=== PATIENT | female | born 1955 | race Caucasian/White ===

== ENCOUNTER 2024-11-22 10:30 | Inpatient (IN) | payer OTHER ==
[~2024-11-22] VITALS: Ht 167.6 cm; Wt 68.8 kg
--- NOTE | 2024-11-22 10:44 | ECG ---
[facility] Test Date: 2024-11-22 Test Time: 10:36:25 Pat Name: TONI SMITH Department: ER Room: [address] [place] [address] Gender: F [employer] Lead: KG : 1955 Requested By: JAVIER BACA Order Number: [id number] Reading MD: Rakan Godwin Measurements Intervals [place] Rate: 129 P: -51 ID: [id number] QRS: -58 QRSD: 91 T: 5 QT: 335 QTc: 491 Interpretive Statements Sinus or ectopic atrial tachycardia Left anterior fascicular block Probable anterior infarct, age indeterminate Electronically Signed On 11-27-2024 15:14:17 PST by Rakan Godwin Please click the below link to view image of tracing.
[2024-11-22 10:45] VITALS: PULSE 130; RESP 30; O2SAT 96
[2024-11-22 11:00] LABS: Base Excess 0.5 mmol/L (-2.0-3.0)
[2024-11-22] MEDS: ALBUTEROL SULF 2.5 MG/0.5ML(0.5%) NEB SOLN NEB ONE ×2 (11:07→19:02)
[2024-11-22] MEDS: IPRATROPIUM BROM 0.5 MG/2.5ML INH SOL NEB ONE ×2 (11:07→19:02)
[2024-11-22] MEDS: methylPREDNISolone SOD SUCC 125 MG/2 ML VL IV ONE (11:29)
[2024-11-22] MEDS: MAGNESIUM SULFATE 1GM/100ML 100 ML IV ONE (11:33)
--- NOTE | 2024-11-22 11:36 | DVH ---
CHEST RADIOGRAPH Indication: sob Technique: Single frontal view of the chest was obtained COMPARISON: None FINDINGS: Lines and Tubes: None Lungs: Congestion. Pleura: No effusion. No pneumothorax. Cardiomediastinal contours: Unremarkable Bones: Unremarkable IMPRESSION: Congestion with possible underlying fibrotic changes.
--- NOTE | 2024-11-22 11:37 | ED.PDOC ---
SOB-HPI HPI Comments 68 year old female MEIR presents to the ED with chief complaint of SOB. EMS reports patient has been experiencing SOB and cough for the past few hours, noting that on scene the patient had an O2 saturation in the 70s. EMS relays patient was given a DuoNeb treatment on route and 8L of O2 via mask and her O2 saturation went up to 96%. Patient states she was recently diagnosed with pneumonia by her doctor 13 days ago and had been prescribed Z-Henrry. Patient denies any chest pain, dizziness, fever, chills, or headache. 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 MACHINE HAND History: No Pertinent SCREW MACHINE HAND History Family History Family History: Reviewed,noncontributory to illness Social History Smoker: Non-Smoker Alcohol: Denies ETOH Use Drugs: Denies Drug Use Lives In: Home Constitutional: denies: chills, diaphoresis, fatigue, fever, malaise, sweats, weakness, others EENTM: denies: blurred vision, double vision, ear bleeding, ear discharge, ear drainage, ear pain, ear ringing, eye pain, eye redness, hearing loss, mouth pain, mouth swelling, nasal discharge, nose bleeding, nose congestion, nose pain, photophobia, tearing, throat pain, throat swelling, voice changes, others Respiratory: reports: cough, shortness of breath; denies: hemoptysis, orthopnea, SOB at rest, SOB with excertion, stridor, wheezing, others Cardiovascular: denies: chest pain, dizzy spells, diaphoresis, Dyspnea on exertion, edema, irregular heart beat, left arm pain, lightheadedness, palpitations, PND, syncope, others Gastrointestinal: denies: abdomen distended, abdominal pain, blood streaked bowels, constipated, diarrhea, dysphagia, difficulty swallowing, hematemesis, melena, nausea, poor appetite, poor fluid intake, rectal bleeding, rectal pain, vomiting, others Genitourinary: denies: abnormal vagina bleeding, burning, dyspareunia, dysuria, flank pain, frequency, hematuria, incontinence, pain, , vagina discharge, urgency, others Neurological: denies: dizziness, fainting, headache, left sided numbness, left sided weakness, numbness, paresthesia, pre-existing deficit, right sided numbness, right sided weakness, seizure, speech problems, tingling, tremors, weakness, others Musculoskeletal: denies: back pain, gout, joint pain, joint swelling, muscle pain, muscle stiffness, neck pain, others Integumetry: denies: bruises, change in color, change in hair/nails, dryness, laceration, lesions, lumps, rash, wounds, others Allergic/Immunocompromised: denies: Difficulty Healing, Frequent Infections, Hives, Itching, others Hematologic/Lymphatic: denies: anemia, blood clots, easy bleeding, easy bruising, swollen glands, others Endocrine: denies: excessive hunger, excessive sweating, excessive thirst, excessive urination, flushing, intolerance to cold, intolerance to heat, unexplained weight gain, unexplained weight loss, others Psychiatric: denies: anxiety, bipolar disorder, depression, hopeless, panic disorder, schizophrenia, sleepless, suicidal, others All Other Systems: Reviewed and Negative Physical Exam General Appearance: Normal, Severe Distress HEENT: Normal ENT Inspection, PERRL/EOMI Neck: Full Range of Motion, Non-Tender, Normal, Normal Inspection Respiratory: Accessory Muscle Use, Chest Non-Tender, Respiratory Distress Cardiovascular: No Edema, No JVD, No Murmur, No Gallop, Normal Peripheral Pulses, Tachycardia Breast Exam: Deferred Gastrointestinal: No Organomegaly, Non Tender, No Pulsatile Mass, Normal Bowel Sounds, Soft Genitalia: Deferred Pelvic: Deferred Rectal: Deferred Extremities: No calf tenderness, Normal capillary refill, Normal inspection, Normal range of motion, Non-tender, No pedal edema Musculoskeletal : Apperance: Normal Neurologic: Alert, bobtail driver II-XII nml as Tested, No Motor Deficits, Normal Affect, Normal Mood, No Sensory Deficits Cerebellar Function: NOT DONE Reflexes: NOT DONE Skin: Dry, Normal Color, Warm Peripheral Pulses: 3+ Radial (R), 3+ Radial (L) Lymphatic: No Adenopathy Was a procedure done? Was a procedure done?: No Differential Dx Differential Diagnosis: Anxiety, Asthma, Bronchitis, Pneumonia, Respiratory Distress X-Ray, Labs, Meds, VS Vital Signs Date Time Temp Pulse Resp B/P (MAP) Pulse Ox O2 Delivery O2 Flow Rate FiO2 11/22/24 16:11 117 18 123/78 (93) 96 11/22/24 14:00 115 22 118/72 (87) 99 11/22/24 12:00 116 30 115/74 (88) 98 11/22/24 11:07 35 99 Nasal Cannula* 4 36 11/22/24 10:45 130 30 96 Simple Mask* 8 60 11/22/24 10:36 129 11/22/24 10:30 Simple Mask* 8 60 11/22/24 10:30 Simple Mask* 8 60 11/22/24 10:30 Simple Mask* 8 60 11/22/24 10:30 97.9 130 32 126/91 (103) 96 11/22/24 10:30 97.8 130 35 107/80 (89) 96 97.8 Lab Test 11/22/24 15:15 11/22/24 15:11 11/22/24 12:55 11/22/24 11:36 Range/Units Urine Color Light-yellow Yellow Urine Clarity Clear Clear Urine pH 5.5 5.0-9.0 Urine Specific [place] 1.010 1.001-1.035 Urine Protein Negative Negative Urine Ketones Negative Negative Urine Blood 1+ H Negative /uL Urine Nitrite Negative Negative Urine Bilirubin Negative Negative Urine Urobilinogen Normal Negative mg/dL Urine Leukocyte Esterase Negative Negative /uL Urine RBC 2 0 - 4 /hpf Urine WBC 5 0 - 5 /hpf Urine Squamous Epithelial Cells Few <5 /hpf Urine Bacteria Few H None Seen /hpf Urine Hyaline Casts Few 0 - 2 /lpf Urine Glucose Normal Normal mg/dL Troponin I High Sensitivity 32 38 *H 38 *H </=34 ng/L White Blood Count 15.2 H 4.4-10.8 10^3/uL Red Blood Count 4.45 4.0-5.20 10^6/uL Hemoglobin 13.6 12.2-16.2 g/dL Hematocrit 39.8 36.0-46.0 % Mean Corpuscular Volume 89.3 80.0-100.0 fL Mean Corpuscular Hemoglobin 30.6 28.0-32.0 pg Mean Corpuscular Hemoglobin Concent 34.3 32.0-36.0 g/dL Red Cell Distribution Width 14.2 11.8-14.3 % Platelet Count 420 140-450 10^3/uL Mean Platelet Volume 6.5 L 6.9-10.8 fL Neutrophils (%) (Auto) 84.3 H 37.0-80.0 % Lymphocytes (%) (Auto) 6.7 L 10.0-50.0 % Monocytes (%) (Auto) 7.3 0.0-12.0 % Eosinophils (%) (Auto) 1.2 0.0-7.0 % Basophils (%) (Auto) 0.5 0.0-2.0 % Neutrophils # (Auto) 12.8 H 1.6-8.6 10 ^3/uL Lymphocytes # (Auto) 1.0 0.4-5.4 10 ^3/uL Monocytes # (Auto) 1.1 0-1.3 10 ^3/uL Eosinophils # (Auto) 0.2 0-0.8 10 ^3/uL Basophils # (Auto) 0.1 0-0.2 10 ^3/uL Nucleated Red Blood Cells 0.1 % Sodium Level 129 L 136-145 mmol/L Potassium Level 3.6 3.5-5.1 mmol/L Chloride Level 94 L 98-107 mmol/L Carbon Dioxide Level 25 20-31 mmol/L Anion Gap 10 5-15 Blood Urea Nitrogen 26 H 9-23 mg/dL Creatinine 0.78 0.550-1.02 mg/dL Glomerular Filtration Rate Calc 82 >90 mL/min BUN/Creatinine Ratio 33.3 H 10.0-20.0 Serum Glucose 143 H 74-106 mg/dL Calcium Level 9.8 8.7-10.4 mg/dL B-Type Natriuretic Peptide 467.95 0-100 pg/mL Test 11/22/24 10:52 Range/Units Blood Gas Specimen Type Arterial Blood Gas Sample Site Left radial Blood Gas Patient Temperature 37.0 Arterial Blood Date Drawn [id number] Arterial Blood pH 7.492 H 7.350-7.450 Arterial Blood Partial Pressure CO2 30.5 L 32.0-45.0 mmHg Arterial Blood Partial Pressure O2 76.1 L 83.0-108.0 mmHg Arterial Blood HCO3 22.8 21.0-28.0 mmol/L Arterial Blood Oxygen Saturation 95.2 94.0-98.0 % Arterial Blood Base Excess 0.5 -2.0-3.0 mmol/L Arterial Blood Oxyhemoglobin 93.5 L 94.0-98.0 % Arterial Blood Carboxyhemoglobin 1.2 0.5-1.5 % Arterial Blood Methemoglobin 0.6 0.0-1.5 % Arthur Test Yes Blood Gas Total Hemoglobin 14.00 12.0-16.0 g/dL Blood Gas Liter Flow 8.00 Blood Gas Modality Mask - simple FiO2 % 60.0 Current Medications Medications (Trade) Dose Ordered Sig/Govind Route Start Time Stop Time Status Last Admin Methylprednisolone Sodium Succinate (Solu Medrol) 125 mg ONCE ONCE IV 11/22/24 11:00 11/22/24 11:01 DC 11/22/24 11:29 Magnesium Sulfate/ Dextrose 100 ml @ 100 mls/hr ONCE ONCE IV 11/22/24 11:00 11/22/24 11:59 DC 11/22/24 11:33 Albuterol (Ventolin Medneb) 5 mg ONCE ONCE NEB 11/22/24 11:00 11/22/24 11:01 DC 11/22/24 11:07 Ipratropium [place] (Atrovent Medneb) 0.5 mg ONCE ONCE NEB 11/22/24 11:00 11/22/24 11:01 DC 11/22/24 11:07 Enoxaparin Sodium (Lovenox) 80 mg ONCE ONCE SC 11/22/24 12:30 11/22/24 12:31 DC 11/22/24 12:35 Ceftriaxone Sodium 50 ml @ 100 mls/hr ONCE ONCE IV 11/22/24 12:45 11/22/24 13:14 DC 11/22/24 13:07 Azithromycin 250 ml @ 125 mls/hr ONCE ONCE IV 11/22/24 12:45 11/22/24 14:44 DC 11/22/24 13:08 Patient alert. Complaining of shortness a breath. Vitals stable. Answering all questions. Was given steroid. Was given breathing treatment. Was given magnesium. Placed on oxygen. WBC elevated pain Possible pneumonia. She has been having breathing difficulties for many weeks. Was given Rocephin. Was given azithromycin. Explained to the patient. Continue cardiac monitoring. Cardiac marker elevated. Was given Lovenox. BNP elevated. Was given Lasix. Chest x-ray reviewed does show pneumonitis. [place] approved inpatient admission [id number]. Time of 1ST Reevaluation: 12:29 Reevaluation 1ST: Unchanged Patient Education/Counseling: Diagnosis, Treatment Family Education/Counseling: No Family Present Additional Information I reviewed the following notes from patient's past medical encounters: None The following tests were ordered, and results were reviewed by me: EKG, Troponin, BMP, UA, BNP, CBC, CXR Additional Information was gathered from interviewing the following independent historians: EMS I reviewed and agreed with the following test results read by other providers: CXR I discussed treatment and results with medical personnel. Departure 1 Departure Time of Disposition: 12:32 Impression: Primary Impression: Acute respiratory failure Qualified Codes: J96.01 - Acute respiratory failure with hypoxia Additional Impressions: Pneumonitis CHF (congestive heart failure) Qualified Codes: I50.43 - Acute on chronic combined systolic (congestive) and diastolic (congestive) heart failure Demand ischemia Disposition: 09 ADMITTED INPATIENT Admit to: Med Surg Condition: Guarded Critical Care Note Critical Care Time?: Yes (90 min-critical care time only) Stability Stability form required: No Heart Score Heart Score: Heart Score Response (Comments) Value History Slightly Suspicious 0 EKG Normal 0 Age >65 2 Risk Factors >3 or Hx ASHD 2 Troponin 1-2 x's Normal limit 1 Total 5 I personally scribed for JAVIER BACA MD ([email or web address]) on 11/22/24 at 11:37. Electronically submitted by Ajit Alonso ([email or web address]). JAVIER BACA MD Nov 22, 2024 11:37
[2024-11-22 12:13] LABS: Basophils # (auto) 0.1 10 ^3/uL (0-0.2); Basophils % (auto) 0.5 % (0.0-2.0); Eosinophils # (auto) 0.2 10 ^3/uL (0-0.8); Eosinophils % (auto) 1.2 % (0.0-7.0); Hematocrit 39.8 % (36.0-46.0); Hemoglobin 13.6 g/dL (12.2-16.2); Lymphocytes % (auto) 6.7 % (10.0-50.0); Mean Corpuscular Hemoglobin 30.6 pg (28.0-32.0); Mean Corpuscular Hgb Conc. 34.3 g/dL (32.0-36.0); Mean Corpuscular Volume 89.3 fL (80.0-100.0); Monocytes # (auto) 1.1 10 ^3/uL (0-1.3); Monocytes % (auto) 7.3 % (0.0-12.0); Neutrophils # (auto) 12.8 10 ^3/uL (1.6-8.6); Neutrophils % (auto) 84.3 % (37.0-80.0); Nucleated Red Blood Cells % 0.1 %; Platelet Count (auto) 420 10^3/uL (140-450); Red Blood Cells 4.45 10^6/uL (4.0-5.20); Red Cell Distribution Width 14.2 % (11.8-14.3); White Blood Cell 15.2 10^3/uL (4.4-10.8)
[2024-11-22 12:32] LABS: Potassium 3.6 mmol/L (3.5-5.1)
[2024-11-22 12:33] LABS: Anion Gap 10 (5-15); Carbon Dioxide 25 mmol/L (20-31)
[2024-11-22] MEDS: ENOXAPARIN SOD 80 MG/0.8ML SYRINGE SC ONE (12:35)
[2024-11-22 12:43] LABS: Calcium 9.8 mg/dL (8.7-10.4)
[2024-11-22 12:47] LABS: BUN/Creatinine Ratio 33.3 (10.0-20.0)
[2024-11-22 12:49] LABS: Blood Urea Nitrogen 26 mg/dL (9-23); Chloride 94 mmol/L (98-107); Glucose 143 mg/dL (74-106); Sodium 129 mmol/L (136-145)
[2024-11-22] MEDS: cefTRIAXone 1GM/50ML D5W 50 ML IV ONE (13:07)
[2024-11-22] MEDS: AZITHROMYCIN 500MG/ 250ML 250 ML IV ONE (13:08)
[2024-11-22 16:24] LABS: Urine Bacteria FEW /hpf (None Seen); Urine Blood 1+ /uL (Negative); Urine Clarity Clear (Clear); Urine Color Light-Yellow (Yellow); Urine Hyaline Cast FEW /lpf (0 - 2); Urine Protein, UAD Negative (Negative); Urine Squamous Epithelial Cell FEW /hpf (<5); Urine Urobilinogen Normal (Negative); Urine WBC 5 /hpf (0 - 5); Urine pH 5.5 (5.0-9.0)
[2024-11-22] MEDS: FUROSEMIDE 40 MG/4 ML VIAL IV ONE (17:43)
[2024-11-22] MEDS: ALBUTEROL SULF 2.5 MG/0.5ML(0.5%) NEB SOLN ONE (19:01)
[2024-11-22] MEDS: IPRATROPIUM BROM 0.5 MG/2.5ML INH SOL ONE (19:02)
[2024-11-22] MEDS ORDERED: ONDANSETRON HCL 4 MG/2 ML VIAL IV PRN (19:15)
[2024-11-22 19:17] VITALS: O2SAT 94
[2024-11-22 19:50] VITALS: O2SAT 94
--- NOTE | 2024-11-22 20:23 | DVHHP2 ---
History of Present Illness Reason for Visit: Shortness of breath History of Present Illness 68-year-old female presents for evaluation of shortness for breath. Patient endorses a two day history of worsening shortness for breath with associated chest pressure and nonproductive cough. Patient reports recently being treated for pneumonia two weeks ago. Denies any fever or chills. No other acute complaints reported. Past Medical History Hypertension Past Surgical History Denies Family History Noncontributory Smoke: No ALCOHOL: none Drugs: None Lives: with Family Review of Systems Review of Systems Review of systems are currently negative otherwise addressed in HPI. Allergies: Coded Allergies: Codeine (Verified Allergy, Unknown, 11/22/24) Etodolac (Verified Allergy, Unknown, 11/22/24) Medications Current Medications Medications Dose Ordered Sig/Govind Route Start Time Stop Time Status Last Admin Dose Admin Albuterol 2.5 mg Q6HPRN PRN NEB 11/22/24 19:15 UNV Furosemide 40 mg DAILY PO 11/23/24 10:00 UNV Aspirin 81 mg DAILY PO 11/23/24 10:00 UNV Atorvastatin Calcium 10 mg HS PO 11/22/24 22:00 UNV Azithromycin 250 ml @ 125 mls/hr DAILY IV 11/23/24 10:00 UNV Temazepam 15 mg QHSP PRN PO 11/22/24 19:15 UNV Ondansetron HCl 4 mg Q4HP PRN IV 11/22/24 19:15 UNV Enoxaparin Sodium 40 mg DAILY SC 11/23/24 10:00 UNV Acetaminophen 650 mg Q6HP PRN PO 11/22/24 19:15 UNV Exam Vital Signs Vital Signs Date Time Temp Pulse Resp B/P (MAP) Pulse Ox O2 Delivery O2 Flow Rate FiO2 11/22/24 20:00 112 33 119/72 (88) 98 11/22/24 19:17 Nasal Cannula 4.0 11/22/24 19:17 36 11/22/24 18:00 97.9 97.9 Exam Gen: 68-year-old female in mild distress Skin: Warm, dry, normal color and texture, no rash. HEENT: Normocephalic atraumatic, mucous membranes moist and pink. Neck: Cervical and supraclavicular nodes normal without enlargement, trachea is midline, thyroid gland is normal without masses. Pulmonary: Clear to auscultation and percussion bilaterally. Cardiac: Regular rate and rhythm. No murmur Abdomen: Soft, nontender, nondistended, bowel sounds present all 4 quadrants, no guarding, no rigidity, no organomegaly. Extremities: No cyanosis, clubbing, no edema Neuro: Cranial nerves II through XII grossly intact, normal affect and speech, no focal motor deficits. Labs/Xrays ORDERING PHYSICIAN: JAVIER BACA MD PROCEDURE(s): CXRP - CHEST PORTABLE REASON: sob ORDER NUMBER(s): [id number], ACCESSION NUMBER(s): [id number] CHEST RADIOGRAPH Indication: sob Technique: Single frontal view of the chest was obtained COMPARISON: None FINDINGS: Lines and Tubes: None Lungs: Congestion. Pleura: No effusion. No pneumothorax. Cardiomediastinal contours: Unremarkable Bones: Unremarkable IMPRESSION: Congestion with possible underlying fibrotic changes. RING PHYSICIAN: MONICA MARSHALL MD PROCEDURE(s): CTACH - CT ANGIO CHEST CONTRAST REASON: RULE OUT PE ORDER NUMBER(s): [id number], ACCESSION NUMBER(s): [id number] PROCEDURE: CT CT ANGIO CHEST CONTRAST 11/23/2024 03:36 PM INDICATION: RULE OUT PE COMPARISON: Radiograph dated 11/22/2023 TECHNIQUE: Coverage: Thorax IV contrast: Administered Phases: Arterial Multiplanar 3-D Maximum Intensity Projection images (MIP) reconstructions were created by the technologist in the coronal and sagittal planes as part of the CT angiography protocol. Adverse events: None Medication laboratory values were reviewed to verify the patient meets criteria for contrast administration. All CT scans at this medical facility are performed using dose modulation techniques as appropriate to a performed exam including the following: Automated exposure control was utilized; adjustment of the MA and/or KV according to patient size; and use of iterative reconstruction technique. Radiation dose: CTDIvol 20, 19 mGy, DLP 627 mGy*cm. FINDINGS: Cardiovascular: No evidence of acute or chronic pulmonary emboli identified. Aorta is normal in caliber. The heart is mildly enlarged. Heavy coronary artery calcification noted. Lungs: Diffuse bilateral interstitial opacities and traction bronchiectasis noted suggesting chronic interstitial lung disease such as pulmonary fibrosis and honeycombing. A 4.2 x 2 cm mass is seen in the peripheral aspect of the superior segment of the right lower lobe. No pleural effusion. No pneumothorax. The airways are patent. Thyroid: Unremarkable Esophagus: Unremarkable. Lymphatics: Mediastinal or hilar lymphadenopathy noted measuring 2.4 x 2 cm Bones/soft tissues: No acute abnormality. Upper abdomen: No acute abnormality. Bilateral breast implants are seen. Other: None. IMPRESSION: 1. No pulmonary emboli. 2. Findings suggestive of pulmonary arterial hypertension. 3. Chronic interstitial lung disease such as pulmonary fibrosis/ usual interstitial pneumonia honeycombing. Traction bronchiectasis noted. Extensive bilateral ground-glass opacities could be related to chronic interstitial lung disease or reflect a superimposed edema, pneumonia or alveolar hemorrhage. Recommend clinical and biochemical correlation. 4. A 4.2 cm right lower lobe mass masses/focal consolidation noted. Follow-up is recommended to ensure regression of benignity. Biopsy May eventually be required. 5. Mediastinal and hilar lymphadenopathy. Labs Test 11/22/24 19:36 11/22/24 15:15 11/22/24 15:11 11/22/24 11:36 Range/Units Urine Color Light-yellow Yellow Urine Clarity Clear Clear Urine pH 5.5 5.0-9.0 Urine Specific [place] 1.010 1.001-1.035 Urine Protein Negative Negative Urine Ketones Negative Negative Urine Blood 1+ H Negative /uL Urine Nitrite Negative Negative Urine Bilirubin Negative Negative Urine Urobilinogen Normal Negative mg/dL Urine Leukocyte Esterase Negative Negative /uL Urine RBC 2 0 - 4 /hpf Urine WBC 5 0 - 5 /hpf Urine Squamous Epithelial Cells Few <5 /hpf Urine Bacteria Few H None Seen /hpf Urine Hyaline Casts Few 0 - 2 /lpf Urine Glucose Normal Normal mg/dL Troponin I High Sensitivity 32 </=34 ng/L White Blood Count 15.2 H 4.4-10.8 10^3/uL Red Blood Count 4.45 4.0-5.20 10^6/uL Hemoglobin 13.6 12.2-16.2 g/dL Hematocrit 39.8 36.0-46.0 % Mean Corpuscular Volume 89.3 80.0-100.0 fL Mean Corpuscular Hemoglobin 30.6 28.0-32.0 pg Mean Corpuscular Hemoglobin Concent 34.3 32.0-36.0 g/dL Red Cell Distribution Width 14.2 11.8-14.3 % Platelet Count 420 140-450 10^3/uL Mean Platelet Volume 6.5 L 6.9-10.8 fL Neutrophils (%) (Auto) 84.3 H 37.0-80.0 % Lymphocytes (%) (Auto) 6.7 L 10.0-50.0 % Monocytes (%) (Auto) 7.3 0.0-12.0 % Eosinophils (%) (Auto) 1.2 0.0-7.0 % Basophils (%) (Auto) 0.5 0.0-2.0 % Neutrophils # (Auto) 12.8 H 1.6-8.6 10 ^3/uL Lymphocytes # (Auto) 1.0 0.4-5.4 10 ^3/uL Monocytes # (Auto) 1.1 0-1.3 10 ^3/uL Eosinophils # (Auto) 0.2 0-0.8 10 ^3/uL Basophils # (Auto) 0.1 0-0.2 10 ^3/uL Nucleated Red Blood Cells 0.1 % Sodium Level 129 L 136-145 mmol/L Potassium Level 3.6 3.5-5.1 mmol/L Chloride Level 94 L 98-107 mmol/L Carbon Dioxide Level 25 20-31 mmol/L Anion Gap 10 5-15 Blood Urea Nitrogen 26 H 9-23 mg/dL Creatinine 0.78 0.550-1.02 mg/dL Glomerular Filtration Rate Calc 82 >90 mL/min BUN/Creatinine Ratio 33.3 H 10.0-20.0 Serum Glucose 143 H 74-106 mg/dL Calcium Level 9.8 8.7-10.4 mg/dL B-Type Natriuretic Peptide 467.95 0-100 pg/mL Test 11/22/24 10:52 Range/Units Blood Gas Specimen Type Arterial Blood Gas Sample Site Left radial Blood Gas Patient Temperature 37.0 Arterial Blood Date Drawn [id number] Arterial Blood pH 7.492 H 7.350-7.450 Arterial Blood Partial Pressure CO2 30.5 L 32.0-45.0 mmHg Arterial Blood Partial Pressure O2 76.1 L 83.0-108.0 mmHg Arterial Blood HCO3 22.8 21.0-28.0 mmol/L Arterial Blood Oxygen Saturation 95.2 94.0-98.0 % Arterial Blood Base Excess 0.5 -2.0-3.0 mmol/L Arterial Blood Oxyhemoglobin 93.5 L 94.0-98.0 % Arterial Blood Carboxyhemoglobin 1.2 0.5-1.5 % Arterial Blood Methemoglobin 0.6 0.0-1.5 % Arthur Test Yes Blood Gas Total Hemoglobin 14.00 12.0-16.0 g/dL Blood Gas Liter Flow 8.00 Blood Gas Modality Mask - simple FiO2 % 60.0 Assessment/Plan Assessment/Plan Assessment Acute hypoxic respiratory failure Questionable pneumonia Possible heart failure Elevated troponin Admit the patient to Med surge to the hospitalist Audiogram pending Azithromycin Med nebs Lasix D-dimer pending Continue treatment per orders. Plan discussed with: Patient My Orders Orders - MONICA FRANCE Procedure Category Date Status Time Albuterol Medneb PHA 11/22/24 Logged (Ventolin Medneb) 19:15 Furosemide Tablet PHA 11/23/24 Logged (Lasix Tablet) 10:00 Azithromycin 500mg/ PHA 11/23/24 Logged 250ml (Zithromax 50 10:00 D-Dimer LAB 11/22/24 In Process 19:11 Basic Metabolic Panel LAB 11/23/24 Verified 04:00 Admit ADMIT 11/22/24 Transmitted 19:11 Temazepam (Restoril) PHA 11/22/24 Logged 19:15 Ondansetron Hcl PHA 11/22/24 Logged (Zofran) 19:15 Enoxaparin Sodium PHA 11/23/24 Logged (Lovenox) 10:00 Complete Blood Count LAB 11/23/24 Verified 04:00 Cardiac DIET 11/23/24 Transmitted Diet-2gna,Lofat,Lochol Breakfast Echo 2d Mode Cardiac US 11/22/24 Logged DOP 19:11 Condition: Stable SHARDA 11/22/24 In Process 19:11 Acetaminophen Tablet PHA 11/22/24 Logged (Tylenol Tablet) 19:15 Bedrest With Bathroom SHARDA 11/22/24 In Process Privileg 19:11 Aspirin Tablet PHA 11/23/24 Logged 10:00 Atorvastatin (Lipitor) PHA 11/22/24 Logged 22:00 Date of Service: Nov 22, 2024 Billing Provider: MONICA FRANCE Common Visit Codes: [id number] INP/OBS CARE (HIGH) MONICA FRANCE Nov 22, 2024 20:23
[2024-11-22 20:24] VITALS: BP 119/72; PULSE 112; RESP 25; TEMP 97.9; O2SAT 94
[2024-11-22] MEDS: ATORVASTATIN 20 MG TAB PO SCH (22:24)
[2024-11-22] MEDS: ACETAMINOPHEN 325 MG TAB PO PRN (22:24)
[2024-11-22] MEDS: TEMAZEPAM 15 MG CAP PO PRN (22:24)
[2024-11-23] VITALS (10 sets, daily range): BP systolic 118–136; BP diastolic 68–81; PULSE 77–114; RESP 16–18; TEMP 97.5–98.1; O2SAT 90–99
[2024-11-23] MEDS: ASPirin 81 mg TAB PO SCH (10:07)
[2024-11-23] MEDS: FUROSEMIDE 40 MG TAB PO SCH (10:07)
[2024-11-23] MEDS: AZITHROMYCIN 500MG/ 250ML 250 ML IV SCH (10:08)
[2024-11-23] MEDS: ENOXAPARIN SOD 40 MG/0.4 ML SYRINGE SC SCH (10:08)
--- NOTE | 2024-11-23 13:26 | DVHSR ---
APPROVED REPORT EXAM: Two-dimensional and M-mode echocardiogram with Doppler and color Doppler. Blood Pressure: 129/75 mmHg INDICATION EF RISK FACTORS Height: 5'6", Weight: 158 DIMENSIONS LVDd4.3 (3.8-5.7cm)LA (2D)3.0 (1.9-4.0cm)Aortic Root3.3 (2.0-3.7cm) LVDs2.9 (2.5-4.0cm)LA (MM) (1.9-4.0cm)Aortic Cusp Exc1.5 (1.5-2.0cm) EF (%) 60.0 (55-70%)Rt. Atrium4.1 (1.9-4.0cm)Asc. Aorta cm IVSd1.1 (0.7-1.1cm)RV (D)4.1 (1.8-2.4cm) PWd0.7 (0.7-1.1cm) Mitral Valve MitralMitral Stenosis E/A ratio0.02D MVAcm2 Aortic Valve Aortic ValveAortic Stenosis V11.02m/Xochilt Mean GR.8mmHg V21.78m/Xochilt Peak GR.13mmHg LVOT Diameter2.3 (1.8-2.4cm)Doppler AVA2.38cm2 Tricuspid Valve TR Velocity3.15m/s [id number] LEFT VENTRICLE The left ventricle is of normal size. Wall thickness is normal. Ejection fraction is normal and is estimated at 60%. There is no regional wall motion abnormalities. Diastolic function is indetermina te. RIGHT VENTRICLE Mildly dilated in size. Systolic function is normal. ATRIA Normal in size. Mildly dilated. Normal in structure. MITRAL VALVE Normal structure and function. No significant mitral regurgitation. PULMONIC VALVE Likely normal. TRICUSPID VALVE Normal structure and function. There is mild tricuspid regurgitation. PA systolic pressure is estim ated at 48 mm Hg. AORTIC VALVE Normal structure and function. GREAT VESSELS The aortic root is of normal size. PERICARDIAL EFFUSION No significant pericardial effusion. IVC is of normal size and collapses normally with inspiration. Other Information Quality : Technically LimitedRhythm : Technically limited study due to body habitus. Conclusion Normal left ventricular size and systolic function. Ejection fraction is estimated at 60%. Mildly dilated right ventricle with preserved systolic function. Mildly dilated left atrial chamber size. No hemodynamically significant valvular disease. PA systolic pressure is estimated at 48 mm Hg. No significant pericardial effusion.
[2024-11-23 13:48] LABS: Potassium 3.5 mmol/L (3.5-5.1)
[2024-11-23 13:49] LABS: Anion Gap 5 (5-15); Calcium 9.4 mg/dL (8.7-10.4); Carbon Dioxide 31 mmol/L (20-31); Chloride 94 mmol/L (98-107); Sodium 130 mmol/L (136-145)
[2024-11-23 13:51] LABS: Basophils # (auto) 0 10 ^3/uL (0-0.2); Basophils % (auto) 0.2 % (0.0-2.0); Eosinophils # (auto) 0.3 10 ^3/uL (0-0.8); Eosinophils % (auto) 1.9 % (0.0-7.0); Hematocrit 39.8 % (36.0-46.0); Hemoglobin 12.7 g/dL (12.2-16.2); Lymphocytes # (auto) 1.5 10 ^3/uL (0.4-5.4); Lymphocytes % (auto) 10.6 % (10.0-50.0); Mean Corpuscular Hemoglobin 30.5 pg (28.0-32.0); Mean Corpuscular Hgb Conc. 32.1 g/dL (32.0-36.0); Mean Corpuscular Volume 95.1 fL (80.0-100.0); Monocytes # (auto) 1.2 10 ^3/uL (0-1.3); Monocytes % (auto) 8.6 % (0.0-12.0); Neutrophils % (auto) 78.7 % (37.0-80.0); Platelet Count (auto) 328 10^3/uL (140-450); Red Blood Cells 4.18 10^6/uL (4.0-5.20); Red Cell Distribution Width 14.9 % (11.8-14.3)
[2024-11-23 13:54] LABS: BUN/Creatinine Ratio 29.6 (10.0-20.0); Blood Urea Nitrogen 21 mg/dL (9-23)
[2024-11-23 14:00] LABS: Glucose 120 mg/dL (74-106)
--- NOTE | 2024-11-23 14:08 | DVHPN2 ---
Progress Note Date Seen: Nov 23, 2024 Medical Necessity Reason Pt with a Central, PICC or Fol: No Subjective Patient reports: No new complaints Review of Systems: HEENT:Normal, CVS:Normal, RESPIRATORY:Normal, GI:Normal, :Normal, MSK:Normal, NEURO:Normal Objective vital signs Vital Sign Date Time Temp Pulse Resp B/P (MAP) Pulse Ox O2 Delivery O2 Flow Rate FiO2 11/23/24 12:54 97.9 101 16 136/80 (98) 91 97.9 11/23/24 10:20 Nasal Cannula* 3 32 Total Intake and Output 11/22/24 11/22/24 11/23/24 15:00 23:00 07:00 Intake Total 275 ml 125 ml 0 ml Output Total 700 ml Balance 275 ml 125 ml -700 ml medications Current Medications Medications Dose Ordered Sig/Govind Route Start Time Stop Time Status Last Admin Dose Admin Albuterol 2.5 mg Q6HPRN PRN NEB 11/22/24 19:15 Furosemide 40 mg DAILY PO 11/23/24 10:00 11/23/24 10:07 40 MG Aspirin 81 mg DAILY PO 11/23/24 10:00 11/23/24 10:07 81 MG Atorvastatin Calcium 10 mg HS PO 11/22/24 22:00 11/22/24 22:24 10 MG Azithromycin 250 ml @ 125 mls/hr DAILY IV 11/23/24 10:00 11/23/24 10:08 125 MLS/HR Temazepam 15 mg QHSP PRN PO 11/22/24 19:15 11/22/24 22:24 15 MG Ondansetron HCl 4 mg Q4HP PRN IV 11/22/24 19:15 Enoxaparin Sodium 40 mg DAILY SC 11/23/24 10:00 11/23/24 10:08 40 MG Acetaminophen 650 mg Q6HP PRN PO 11/22/24 19:15 11/23/24 10:08 650 MG Examination: GENERAL:Normal, HEENT:Normal, NECK:Normal, LUNGS:Normal, LUNGS:Abnormal (on oxygen, rales), CVS:Normal, ABDOMEN:Normal, MSK:Normal, SKIN:Normal, NEURO:Normal, :Normal laboratory and microbiology Laboratory Tests 11/23/24 13:16 Test 11/23/24 13:16 Range/Units Serum Glucose 120 H 74-106 mg/dL Problem List/Assessment/Plan Problem List/Assessment/Plan #1 acute resp failure: cont oxygen #2 acute systolic/diastolic heart failure: lasix iv, echo #3 rule out PE: ct angio #4 hyponatremia: lasix iv advance care planning- full code-time spent 19 mins Plan discussed with: Patient My Orders My Orders Orders - MONICA MARSHALL MD Procedure Category Date Status Time Echo 2d Mode Cardiac US 11/23/24 Verified DOP 14:[address] 11/23/24 Verified Contrast 14:03 Furosemide Injection PHA 11/23/24 Verified (Lasix Injection) 14:15 Furosemide Injection PHA 11/24/24 Verified (Lasix Injection) 10:00 Complete Blood Count LAB 11/24/24 Verified 06:00 Comprehensive LAB 11/24/24 Verified Metabolic Panel 06:00 Chest Portable XY 11/24/24 Verified 06:00 Date of Service: Nov 23, 2024 Billing Provider: MONICA MARSHALL MD Common Visit Codes: [id number] INP/OBS CARE(HIGH) Secondary Visit Codes: [id number] CARE PLAN 30 MINUTES MONICA MARSHALL MD Nov 23, 2024 14:08
[2024-11-23] MEDS: FUROSEMIDE 20 MG/2 ML VIAL IV ONE (16:42)
--- NOTE | 2024-11-23 17:43 | DVH ---
PROCEDURE: CT CT ANGIO CHEST CONTRAST 11/23/2024 03:36 PM INDICATION: RULE OUT PE COMPARISON: Radiograph dated 11/22/2023 TECHNIQUE: Coverage: Thorax IV contrast: Administered Phases: Arterial Multiplanar 3-D Maximum Intensity Projection images (MIP) reconstructions were created by the technharvinder manuel in the coronal and sagittal planes as part of the CT angiography protocol. Adverse events: None Medication laboratory values were reviewed to verify the patient meets criteria for contrast administ ration. All CT scans at this medical facility are performed using dose modulation techniques as appropriate t o a performed exam including the following: Automated exposure control was utilized; adjustment of th e MA and/or KV according to patient size; and use of iterative reconstruction technique. Radiation dose: CTDIvol 20, 19 mGy, DLP 627 mGy*cm. FINDINGS: Cardiovascular: No evidence of acute or chronic pulmonary emboli identified. Aorta is normal in calib er. The heart is mildly enlarged. Heavy coronary artery calcification noted. Lungs: Diffuse bilateral interstitial opacities and traction bronchiectasis noted suggesting chronic interstitial lung disease such as pulmonary fibrosis and honeycombing. A 4.2 x 2 cm mass is seen in t he peripheral aspect of the superior segment of the right lower lobe. No pleural effusion. No pneumot horax. The airways are patent. Thyroid: Unremarkable Esophagus: Unremarkable. Lymphatics: Mediastinal or hilar lymphadenopathy noted measuring 2.4 x 2 cm Bones/soft tissues: No acute abnormality. Upper abdomen: No acute abnormality. Bilateral breast implants are seen. Other: None. IMPRESSION: 1. No pulmonary emboli. 2. Findings suggestive of pulmonary arterial hypertension. 3. Chronic interstitial lung disease such as pulmonary fibrosis/ usual interstitial pneumonia honeyco mbing. Traction bronchiectasis noted. Extensive bilateral ground-glass opacities could be related t o chronic interstitial lung disease or reflect a superimposed edema, pneumonia or alveolar hemorrhage . Recommend clinical and biochemical correlation. 4. A 4.2 cm right lower lobe mass masses/focal consolidation noted. Follow-up is recommended to ensur e regression of benignity. Biopsy May eventually be required. 5. Mediastinal and hilar lymphadenopathy.
[2024-11-24] VITALS (14 sets, daily range): BP systolic 90–147; BP diastolic 67–83; PULSE 77–116; RESP 16–20; TEMP 97.6–98; O2SAT 91–99
[2024-11-24] MEDS: ALBUTEROL SULF 2.5 MG/0.5ML(0.5%) NEB SOLN NEB PRN (07:44)
[2024-11-24 08:09] LABS: Basophils # (auto) 0 10 ^3/uL (0-0.2); Basophils % (auto) 0.3 % (0.0-2.0); Eosinophils # (auto) 0.7 10 ^3/uL (0-0.8); Eosinophils % (auto) 5.9 % (0.0-7.0); Hematocrit 38.1 % (36.0-46.0); Lymphocytes # (auto) 1.2 10 ^3/uL (0.4-5.4); Lymphocytes % (auto) 10.3 % (10.0-50.0); Mean Corpuscular Hemoglobin 30.8 pg (28.0-32.0); Mean Corpuscular Hgb Conc. 34.2 g/dL (32.0-36.0); Monocytes # (auto) 0.9 10 ^3/uL (0-1.3); Monocytes % (auto) 7.6 % (0.0-12.0); Neutrophils % (auto) 75.9 % (37.0-80.0); Platelet Count (auto) 340 10^3/uL (140-450); Red Blood Cells 4.24 10^6/uL (4.0-5.20); Red Cell Distribution Width 14.5 % (11.8-14.3); White Blood Cell 11.9 10^3/uL (4.4-10.8)
[2024-11-24 08:32] LABS: Alanine Aminotransferase 19 U/L (7-40); Albumin 3.7 g/dL (3.2-4.8); Alkaline Phosphatase 78 U/L (46-116); Anion Gap 8 (5-15); Aspartate Aminotransferase 29 U/L (13-40); BUN/Creatinine Ratio 25.9 (10.0-20.0); Bilirubin, Total 0.5 mg/dL (0.2-1.0); Blood Urea Nitrogen 15 mg/dL (9-23); Calcium 9.4 mg/dL (8.7-10.4); Glucose 95 mg/dL (74-106); Potassium 3.6 mmol/L (3.5-5.1); Total Protein 6.8 g/dL (5.7-8.2)
[2024-11-24 08:33] LABS: Carbon Dioxide 31 mmol/L (20-31); Chloride 94 mmol/L (98-107); Sodium 133 mmol/L (136-145)
--- NOTE | 2024-11-24 09:06 | DVH ---
CHEST RADIOGRAPH Indication: CHF Technique: Single frontal view of the chest was obtained Comparison: XY CHEST PORTABLE on DOS: 11/22/24, XY CHEST PORTABLE on DOS: 11/22/24 FINDINGS: Lines and Tubes: None Lungs: Congestion. Pleura: No effusion. No pneumothorax. Cardiomediastinal contours: Unremarkable Bones: Unremarkable IMPRESSION: Congestion with possible underlying fibrotic changes.
[2024-11-24] MEDS: FUROSEMIDE 20 MG/2 ML VIAL IV SCH (10:14)
--- NOTE | 2024-11-24 11:17 | DVHDS2 ---
Discharge Summary Date of Admission Nov 22, 2024 at 19:11 Date of Discharge: Nov 24, 2024 Labs/Diagnostic Data: Laboratory Results Test 11/24/24 07:00 11/22/24 19:36 11/22/24 15:15 11/22/24 15:11 White Blood Count 11.9 10^3/uL (4.4-10.8) Red Blood Count 4.24 10^6/uL (4.0-5.20) Hemoglobin 13.0 g/dL (12.2-16.2) Hematocrit 38.1 % (36.0-46.0) Mean Corpuscular Volume 90.0 fL (80.0-100.0) Mean Corpuscular Hemoglobin 30.8 pg (28.0-32.0) Mean Corpuscular Hemoglobin Concent 34.2 g/dL (32.0-36.0) Red Cell Distribution Width 14.5 % (11.8-14.3) Platelet Count 340 10^3/uL (140-450) Mean Platelet Volume 6.6 fL (6.9-10.8) Neutrophils (%) (Auto) 75.9 % (37.0-80.0) Lymphocytes (%) (Auto) 10.3 % (10.0-50.0) Monocytes (%) (Auto) 7.6 % (0.0-12.0) Eosinophils (%) (Auto) 5.9 % (0.0-7.0) Basophils (%) (Auto) 0.3 % (0.0-2.0) Neutrophils # (Auto) 9.0 10 ^3/uL (1.6-8.6) Lymphocytes # (Auto) 1.2 10 ^3/uL (0.4-5.4) Monocytes # (Auto) 0.9 10 ^3/uL (0-1.3) Eosinophils # (Auto) 0.7 10 ^3/uL (0-0.8) Basophils # (Auto) 0 10 ^3/uL (0-0.2) Nucleated Red Blood Cells 0.0 % Sodium Level 133 mmol/L (136-145) Potassium Level 3.6 mmol/L (3.5-5.1) Chloride Level 94 mmol/L (98-107) Carbon Dioxide Level 31 mmol/L (20-31) Anion Gap 8 (5-15) Blood Urea Nitrogen 15 mg/dL (9-23) Creatinine 0.58 mg/dL (0.550-1.02) Glomerular Filtration Rate Calc 98 mL/min (>90) BUN/Creatinine Ratio 25.9 (10.0-20.0) Serum Glucose 95 mg/dL (74-106) Calcium Level 9.4 mg/dL (8.7-10.4) Total Bilirubin 0.5 mg/dL (0.2-1.0) Aspartate Amino Transferase (AST) 29 U/L (13-40) Alanine Aminotransferase (ALT) 19 U/L (7-40) Alkaline Phosphatase 78 U/L (46-116) Total Protein 6.8 g/dL (5.7-8.2) Albumin 3.7 g/dL (3.2-4.8) D-Dimer, Quantitative 2.60 mg/L FEU (0.0-0.49) Urine Color Light-yellow (Yellow) Urine Clarity Clear (Clear) Urine pH 5.5 (5.0-9.0) Urine Specific [place] 1.010 (1.001-1.035) Urine Protein Negative (Negative) Urine Ketones Negative (Negative) Urine Blood 1+ /uL (Negative) Urine Nitrite Negative (Negative) Urine Bilirubin Negative (Negative) Urine Urobilinogen Normal mg/dL (Negative) Urine Leukocyte Esterase Negative /uL (Negative) Urine RBC 2 /hpf (0 - 4) Urine WBC 5 /hpf (0 - 5) Urine Squamous Epithelial Cells Few /hpf (<5) Urine Bacteria Few /hpf (None Seen) Urine Hyaline Casts Few /lpf (0 - 2) Urine Glucose Normal mg/dL (Normal) Troponin I High Sensitivity 32 ng/L (</=34) Test 11/22/24 11:36 11/22/24 10:52 B-Type Natriuretic Peptide 467.95 pg/mL (0-100) Blood Gas Specimen Type Arterial Blood Gas Sample Site Left radial Blood Gas Patient Temperature 37.0 Arterial Blood Date Drawn [id number] Arterial Blood pH 7.492 (7.350-7.450) Arterial Blood Partial Pressure CO2 30.5 mmHg (32.0-45.0) Arterial Blood Partial Pressure O2 76.1 mmHg (83.0-108.0) Arterial Blood HCO3 22.8 mmol/L (21.0-28.0) Arterial Blood Oxygen Saturation 95.2 % (94.0-98.0) Arterial Blood Base Excess 0.5 mmol/L (-2.0-3.0) Arterial Blood Oxyhemoglobin 93.5 % (94.0-98.0) Arterial Blood Carboxyhemoglobin 1.2 % (0.5-1.5) Arterial Blood Methemoglobin 0.6 % (0.0-1.5) Arthur Test Yes Blood Gas Total Hemoglobin 14.00 g/dL (12.0-16.0) Blood Gas Liter Flow 8.00 Blood Gas Modality Mask - simple FiO2 % 60.0 Other Laboratory Tests 11/24/24 07:00 Brief Hx & Hospital Course: see dictated note Condition at Discharge: Fair Final Diagnosis/Problems List resp failure Discharge Disposition: Acute Care Facility Discharge Instruct/Medications Diet: Cardiac 2g Na,low cholest Activity: No Restrictions, As Tolerated Follow Up/Referral: darell coronado Medications: per jan Discharge Statement: "Patient was advised to return to the ER or call 911 if any headaches, dizziness, shortness of breath, chest pain, abdominal pain, bleeding, fevers, or worsening of medical condition. Patient was counseled about treatment plan, medications, possible side effects, patientverbalized understanding. All questions were answered to the best of my ability. This discharge took greater then 30 minutes in planning, reviewing documentation, counseling the patient, and discussing with other team members." ASSESSMENT ASSESSMENT Assessment resp failure Date of Service: Nov 24, 2024 Billing Provider: MONICA MARSHALL MD Common Visit Codes: 78782-VCF/OBS DISCH DAY >30min MONICA MARSHALL MD Nov 24, 2024 11:17
--- NOTE | 2024-11-24 11:53 | DVHDS ---
DATE OF DISCHARGE: 11/24/2024 TRANSFER SUMMARY HISTORY OF PRESENT ILLNESS: The patient is a 68-year-old lady who was admitted with increasing shortness of breath and cough and has history of hypertension and previous history of ARDS. HOSPITAL COURSE: The patient had a troponin level mildly elevated at 38. BNP was elevated at 467. She was hyponatremic. The patient had a D-dimer that was elevated. The patient had a CT angiography of the chest that showed no pulmonary emboli, but showed evidence of pulmonary arterial hypertension with chronic interstitial lung disease and pulmonary fibrosis along with possible superimposed edema. The patient also had a 4.2 cm right lower lobe mass/focal consolidation with mediastinal and hilar lymphadenopathy. The patient had echocardiogram done that showed ejection fraction of 60% with evidence of pulmonary arterial hypertension. The patient will now be transferred to [facility] for further management. I have discussed this plan in detail with the patient's daughter, February. FINAL DIAGNOSES: Therefore, * Acute respiratory failure. * Interstitial fibrosis/interstitial lung disease, extensive. * Right lower lung mass/focal consolidation, questionable malignancy. * Likely acute diastolic heart failure. * Questionable pneumonia, gram-positive, gram-negative. * Hyponatremia. * History of hypertension. * [id number] myocardial infarction, likely type 2. * Pulmonary hypertension, likely secondary. Time spent in discharge planning and review of plan with the patient's family, nursing and paperwork was 41 minutes. MD SARITA Gómez/HEBERT TID: [id number] RECEIPT: [id number]
[2024-11-24] MEDS: cefTRIAXone 1GM/50ML D5W 50 ML IV ONE (18:13)
[2024-11-25] VITALS (17 sets, daily range): BP systolic 96–126; BP diastolic 57–77; PULSE 86–115; RESP 18–22; TEMP 97.7–98.1; O2SAT 90–98
[2024-11-25] MEDS: IPRATROPIUM BROM 0.5 MG/2.5ML INH SOL NEB SCH (01:19)
[2024-11-25 07:53] LABS: Anion Gap 8 (5-15); Calcium 9.1 mg/dL (8.7-10.4); Carbon Dioxide 30 mmol/L (20-31)
[2024-11-25 08:00] LABS: BUN/Creatinine Ratio 16.7 (10.0-20.0); Blood Urea Nitrogen 8 mg/dL (9-23); Chloride 93 mmol/L (98-107); Glucose 120 mg/dL (74-106); Potassium 3.3 mmol/L (3.5-5.1); Sodium 131 mmol/L (136-145)
[2024-11-25] MEDS: cefTRIAXone 1GM/50ML D5W 50 ML IV SCH (09:05)
[2024-11-25] MEDS: ALPRAZolam 0.5 MG TAB PO PRN (14:07)
[2024-11-26] VITALS (16 sets, daily range): BP systolic 91–144; BP diastolic 46–84; PULSE 92–122; RESP 18–26; TEMP 97.8–98.7; O2SAT 85–99
[2024-11-26] MEDS: ALPRAZolam 0.5 MG TAB PO PRN (01:05)
[2024-11-26] MEDS ORDERED: POTASSIUM CHL 20MEQ/100ML 100 ML IV SCH (13:15)
[2024-11-26] MEDS: POTASSIUM CHLORIDE 40 MEQ, LIDOCAINE 1% (LOCAL ANESTH.) 4 ML in SODIUM CHL 0.9% 250 ML IV ONE (16:27)
--- NOTE | 2024-11-26 20:37 | DVHPN2 ---
Objective Vitals Vital Signs Date Time Temp Pulse Resp B/P (MAP) Pulse Ox O2 Delivery O2 Flow Rate FiO2 11/26/24 18:39 102 20 92 11/26/24 18:29 Oxymizer 10 N/A 11/26/24 17:00 98.2 99/62 (74) 98.2 Intake/Output Intake and Output 11/26/24 07:00 Intake Total 1005 ml Output Total 600 ml Balance 405 ml Intake Oral 705 ml IV Total 300 ml Output Urine Total 600 ml Medications Current Medications Medications Dose Ordered Sig/Govind Route Start Time Stop Time Status Last Admin Dose Admin Albuterol 2.5 mg Q6HPRN PRN NEB 11/22/24 19:15 11/25/24 19:34 2.5 MG Aspirin 81 mg DAILY PO 11/23/24 10:00 11/26/24 09:43 81 MG Atorvastatin Calcium 10 mg HS PO 11/22/24 22:00 11/25/24 21:09 10 MG Azithromycin 250 ml @ 125 mls/hr DAILY IV 11/23/24 10:00 11/26/24 11:06 125 MLS/HR Temazepam 15 mg QHSP PRN PO 11/22/24 19:15 11/25/24 21:09 15 MG Ondansetron HCl 4 mg Q4HP PRN IV 11/22/24 19:15 Enoxaparin Sodium 40 mg DAILY SC 11/23/24 10:00 11/26/24 09:43 40 MG Acetaminophen 650 mg Q6HP PRN PO 11/22/24 19:15 11/26/24 16:15 650 MG Furosemide 20 mg DAILY IV 11/24/24 10:00 11/26/24 09:44 20 MG Ceftriaxone Sodium 50 ml @ 100 mls/hr DAILY@09 IV 11/25/24 09:00 11/26/24 09:44 100 MLS/HR Ipratropium [place] 0.5 mg Q6HWA NEB 11/25/24 01:00 11/26/24 18:28 0.5 MG Alprazolam 0.5 mg Q8HPRN PRN PO 11/26/24 01:00 11/26/24 01:05 0.5 MG Laboratory Results Laboratory Tests 11/24/24 07:00 11/25/24 06:15 Urinalysis Test 11/22/24 15:15 Urine Color Light-yellow (Yellow) Urine Clarity Clear (Clear) Urine pH 5.5 (5.0-9.0) Urine Specific [place] 1.010 (1.001-1.035) Urine Protein Negative (Negative) Urine Ketones Negative (Negative) Urine Blood 1+ /uL (Negative) H Urine Nitrite Negative (Negative) Urine Bilirubin Negative (Negative) Urine Urobilinogen Normal mg/dL (Negative) Urine Leukocyte Esterase Negative /uL (Negative) Urine RBC 2 /hpf (0 - 4) Urine WBC 5 /hpf (0 - 5) Urine Squamous Epithelial Cells Few /hpf (<5) Urine Bacteria Few /hpf (None Seen) H Urine Hyaline Casts Few /lpf (0 - 2) Urine Glucose Normal mg/dL (Normal) Assessment/Plan My Orders Orders - BENJAMIN MARSHALL DO Procedure Category Date Status Time Comprehensive LAB 11/27/24 Verified Metabolic Panel 05:00 Pt Request For Service PT 11/26/24 Logged 15:23 Date of Service: Nov 25, 2024 BENJAMIN MARSHALL DO Nov 26, 2024 20:37
--- NOTE | 2024-11-26 22:04 | DVHINCON2 ---
Date of service: Nov 26, 2024 Referring Physician Ronaldo Patton DO Reason for Consultation Acute hypoxic respiratory failure, lung mass, chronic interstitial lung disease History of Present Illness A 68-year-old woman with past medical history of hypertension who presented to ED on 11/22/24 for evaluation of shortness of breath. Patient reported 2-day history of worsening shortness of breath with associated chest pressure and nonproductive cough. Patient was recently treated for pneumonia 2 weeks prior to presentation. Denied any fever or chills. No other acute complaints reported. Patient was admitted for further care and pulmonary consultation is requested for evaluation and management due to the above findings. Review of Systems: 14-point review of systems negative unless otherwise noted above. Past Medical History: Hypertension Past Surgical History: None Medications: Reviewed. Allergies: Codeine Etodolac Family History: No family history of premature CAD. No family history of lung disorders. Social History: Nonsmoker. No alcohol or illicit drug use. Family History: Patient reports no known family medical history. Allergies: Coded Allergies: Codeine (Verified Allergy, Unknown, 11/22/24) Etodolac (Verified Allergy, Unknown, 11/22/24) Current Medications Current Medications Medications (Trade) Dose Ordered Sig/Govind Route PRN Reason Start Time Stop Time Status Last Admin Alprazolam (Xanax Tablet) 0.5 mg Q8HPRN PRN PO ANXIETY 11/26/24 01:00 11/26/24 01:05 Potassium Chloride 100 ml @ 50 mls/hr Q2H IV 11/26/24 13:15 11/26/24 14:35 DC Vital Signs Vital Signs Date Time Temp Pulse Resp B/P (MAP) Pulse Ox O2 Delivery O2 Flow Rate FiO2 11/26/24 18:39 102 20 92 11/26/24 18:29 Oxymizer 10 N/A 11/26/24 17:00 98.2 99/62 (74) 98.2 Physical Exam Gen.: Patient lying in bed in no apparent distress. On supplemental oxygen. Head: Normocephalic, atraumatic. Eyes: EOMI/PERRLA. Ears: Normal hearing. Normal anatomy. Neck/trachea: Trachea midline, supple. Nose: Normal external anatomy. Mouth: Moist mucous membranes. Chest: Decreased air entry bilaterally. No wheezing or rhonchi. Cardiovascular: Positive S1, positive S2. Regular rate and rhythm. Abdomen: Positive bowel sounds in all 4 quadrants. Soft, non-tender, non- distended. : Deferred. Rectal: Deferred. Skin: Warm, dry. Intact. Extremities: 2+ radial pulses bilaterally. No lower extremity edema. Neuro: Awake, alert, oriented x3. No gross motor or sensory deficits. Cranial nerves II through XII intact. Gait not assessed. Labs/Diagnostic Data Labs Test 11/25/24 06:15 11/24/24 07:00 11/22/24 19:36 11/22/24 15:15 Range/Units Sodium Level 131 L 136-145 mmol/L Potassium Level 3.3 L 3.5-5.1 mmol/L Chloride Level 93 L 98-107 mmol/L Carbon Dioxide Level 30 20-31 mmol/L Anion Gap 8 5-15 Blood Urea Nitrogen 8 L 9-23 mg/dL Creatinine 0.48 L 0.550-1.02 mg/dL Glomerular Filtration Rate Calc 102 >90 mL/min BUN/Creatinine Ratio 16.7 10.0-20.0 Serum Glucose 120 H 74-106 mg/dL Calcium Level 9.1 8.7-10.4 mg/dL Magnesium Level 2.0 1.6-2.6 mg/dL White Blood Count 11.9 H 4.4-10.8 10^3/uL Red Blood Count 4.24 4.0-5.20 10^6/uL Hemoglobin 13.0 12.2-16.2 g/dL Hematocrit 38.1 36.0-46.0 % Mean Corpuscular Volume 90.0 # 80.0-100.0 fL Mean Corpuscular Hemoglobin 30.8 28.0-32.0 pg Mean Corpuscular Hemoglobin Concent 34.2 32.0-36.0 g/dL Red Cell Distribution Width 14.5 H 11.8-14.3 % Platelet Count 340 140-450 10^3/uL Mean Platelet Volume 6.6 L 6.9-10.8 fL Neutrophils (%) (Auto) 75.9 37.0-80.0 % Lymphocytes (%) (Auto) 10.3 10.0-50.0 % Monocytes (%) (Auto) 7.6 0.0-12.0 % Eosinophils (%) (Auto) 5.9 0.0-7.0 % Basophils (%) (Auto) 0.3 0.0-2.0 % Neutrophils # (Auto) 9.0 H 1.6-8.6 10 ^3/uL Lymphocytes # (Auto) 1.2 0.4-5.4 10 ^3/uL Monocytes # (Auto) 0.9 0-1.3 10 ^3/uL Eosinophils # (Auto) 0.7 0-0.8 10 ^3/uL Basophils # (Auto) 0 0-0.2 10 ^3/uL Nucleated Red Blood Cells 0.0 % Total Bilirubin 0.5 0.2-1.0 mg/dL Aspartate Amino Transferase (AST) 29 13-40 U/L Alanine Aminotransferase (ALT) 19 7-40 U/L Alkaline Phosphatase 78 46-116 U/L Total Protein 6.8 5.7-8.2 g/dL Albumin 3.7 3.2-4.8 g/dL D-Dimer, Quantitative 2.60 H 0.0-0.49 mg/L FEU Urine Color Light-yellow Yellow Urine Clarity Clear Clear Urine pH 5.5 5.0-9.0 Urine Specific [place] 1.010 1.001-1.035 Urine Protein Negative Negative Urine Ketones Negative Negative Urine Blood 1+ H Negative /uL Urine Nitrite Negative Negative Urine Bilirubin Negative Negative Urine Urobilinogen Normal Negative mg/dL Urine Leukocyte Esterase Negative Negative /uL Urine RBC 2 0 - 4 /hpf Urine WBC 5 0 - 5 /hpf Urine Squamous Epithelial Cells Few <5 /hpf Urine Bacteria Few H None Seen /hpf Urine Hyaline Casts Few 0 - 2 /lpf Urine Glucose Normal Normal mg/dL Test 11/22/24 15:11 11/22/24 11:36 11/22/24 10:52 Range/Units Troponin I High Sensitivity 32 </=34 ng/L B-Type Natriuretic Peptide 467.95 0-100 pg/mL Blood Gas Specimen Type Arterial Blood Gas Sample Site Left radial Blood Gas Patient Temperature 37.0 Arterial Blood Date Drawn [id number] Arterial Blood pH 7.492 H 7.350-7.450 Arterial Blood Partial Pressure CO2 30.5 L 32.0-45.0 mmHg Arterial Blood Partial Pressure O2 76.1 L 83.0-108.0 mmHg Arterial Blood HCO3 22.8 21.0-28.0 mmol/L Arterial Blood Oxygen Saturation 95.2 94.0-98.0 % Arterial Blood Base Excess 0.5 -2.0-3.0 mmol/L Arterial Blood Oxyhemoglobin 93.5 L 94.0-98.0 % Arterial Blood Carboxyhemoglobin 1.2 0.5-1.5 % Arterial Blood Methemoglobin 0.6 0.0-1.5 % Arthur Test Yes Blood Gas Total Hemoglobin 14.00 12.0-16.0 g/dL Blood Gas Liter Flow 8.00 Blood Gas Modality Mask - simple FiO2 % 60.0 Assessment Impression: Acute hypoxic respiratory failure Dependence on supplemental oxygen Pulmonary fibrosis Lung mass Mediastinal lymphadenopathy Chronic interstitial lung disease Bronchiectasis GGO on imaging Elevated D-dimer. PE ruled out. Plan: Supplemental oxygen 10 LPM Oxymizer Titrate to keep O2 sats above 92%. Taper O2 as tolerated. Continue bronchodilators. Continue antibiotics Consider CT-guided biopsy if no resolution with antibiotics Diurese to euvolemia w/ Lasix Monitor renal function. Monitor electrolytes. Supplement as necessary. Potassium supplementation Monitor ins and outs. DVT prophylaxis. Prognosis: Poor given patient's multiple co-morbidities. Rest of plan per hospitalist and other consultants. Thank you, Dr. Patton, for allowing me to participate in this patient's care. Further recommendations will depend on the patient's clinical course. Please do not hesitate to contact me if you have any questions or concerns. This medical document was created using an electronic medical record system with [employer] dictation system. Although these documentations are being carefully reviewed, there may still be some phonetic and typographical changes. The errors are purely typographical, due to imperfection on the software program, and do not reflect any compromise in the patient's medical care. Plan discussed with: Patient, Other (RN/Dr. Patton) LYRIC DAVIDSON MD Nov 26, 2024 22:04
[2024-11-27] VITALS (40 sets, daily range): BP systolic 95–148; BP diastolic 59–93; PULSE 88–117; RESP 18–38; TEMP 97.6–99; O2SAT 82–99
[2024-11-27 07:48] LABS: Albumin 3.5 g/dL (3.2-4.8); Alkaline Phosphatase 85 U/L (46-116); Anion Gap 8 (5-15); Aspartate Aminotransferase 20 U/L (13-40); BUN/Creatinine Ratio 18.2 (10.0-20.0); Bilirubin, Total 0.4 mg/dL (0.2-1.0); Calcium 9.3 mg/dL (8.7-10.4); Carbon Dioxide 28 mmol/L (20-31); Potassium 4.2 mmol/L (3.5-5.1); Total Protein 6.6 g/dL (5.7-8.2)
[2024-11-27 07:59] LABS: Alanine Aminotransferase < 9 U/L (7-40); Blood Urea Nitrogen 8 mg/dL (9-23); Chloride 88 mmol/L (98-107); Glucose 133 mg/dL (74-106); Sodium 124 mmol/L (136-145)
[2024-11-27 09:36] LABS: Base Excess 6.1 mmol/L (-2.0-3.0)
--- NOTE | 2024-11-27 10:38 | DVH ---
CHEST RADIOGRAPH Indication: change in status-difficuty breathing Technique: Single frontal view of the chest was obtained COMPARISON: XY CHEST PORTABLE on DOS: 11/24/24 ; CT chest on 11/23/2024 FINDINGS: Lines and Tubes: None Lungs: Extensive interstitial and hazy lung opacities are similar from prior. Pleura: No effusion. No pneumothorax. Cardiomediastinal contours: Unremarkable Bones: Unremarkable IMPRESSION: Diffuse fibrotic lung changes are similar from prior. Superimposed edema or infection are difficult to exclude radiographically.
[2024-11-27] MEDS: methylPREDNISolone SOD SUCC 125 MG/2 ML VL IV ONE (11:11)
[2024-11-27 13:19] LABS: Base Excess 6.1 mmol/L (-2.0-3.0)
[2024-11-27] MEDS ORDERED: MORPHINE SULFATE INJ 2 MG/ml SYRG IV PRN (14:30)
[2024-11-27] MEDS ORDERED: KETOROLAC TROMETH 30 MG/ML 1ML VIAL IV PRN (15:30)
[2024-11-27] MEDS ORDERED: HYDROMORPHONE HCL 1 MG/ML INJ IV PRN (16:30)
[2024-11-27] MEDS: HYDROmorphone HCL 2 MG/ML VL/or syr IV PRN (17:39)
--- NOTE | 2024-11-27 20:23 | DVHPN2 ---
Reviewed: Care Plan Objective Vitals Vital Signs Date Time Temp Pulse Resp B/P (MAP) Pulse Ox O2 Delivery O2 Flow Rate FiO2 11/27/24 18:09 109 19 112/27 11/27/24 18:00 92 11/27/24 16:00 97.9 97.9 11/27/24 15:22 Hi-Flow Heated NC+ 60 80 80 Intake/Output Intake and Output 11/27/24 07:00 Intake Total 1760 ml Output Total 800 ml Balance 960 ml Intake Oral 1460 ml IV Total 300 ml Output Urine Total 800 ml # Bowel Movements 1 Medications Current Medications Medications Dose Ordered Sig/Govind Route Start Time Stop Time Status Last Admin Dose Admin Albuterol 2.5 mg Q6HPRN PRN NEB 11/22/24 19:15 11/27/24 19:06 2.5 MG Aspirin 81 mg DAILY PO 11/23/24 10:00 11/27/24 10:00 81 MG Atorvastatin Calcium 10 mg HS PO 11/22/24 22:00 11/26/24 21:30 10 MG Azithromycin 250 ml @ 125 mls/hr DAILY IV 11/23/24 10:00 11/27/24 10:00 125 MLS/HR Temazepam 15 mg QHSP PRN PO 11/22/24 19:15 11/26/24 21:30 15 MG Ondansetron HCl 4 mg Q4HP PRN IV 11/22/24 19:15 Enoxaparin Sodium 40 mg DAILY SC 11/23/24 10:00 11/27/24 10:00 40 MG Acetaminophen 650 mg Q6HP PRN PO 11/22/24 19:15 11/27/24 05:54 650 MG Ceftriaxone Sodium 50 ml @ 100 mls/hr DAILY@09 IV 11/25/24 09:00 11/27/24 09:00 100 MLS/HR Ipratropium [place] 0.5 mg Q6HWA NEB 11/25/24 01:00 11/27/24 19:05 0.5 MG Alprazolam 0.5 mg Q8HPRN PRN PO 11/26/24 01:00 11/27/24 00:02 0.5 MG Furosemide 40 mg DAILY IV 11/28/24 10:00 Methylprednisolone Sodium Succinate 40 mg Q8HR IV 11/27/24 22:00 Hydromorphone HCl 0.25 mg Q4HPRN PRN IV 11/27/24 17:30 11/27/24 17:39 0.25 MG Laboratory Results Laboratory Tests 11/24/24 07:00 11/27/24 06:34 Chemistry Test 11/27/24 06:34 Albumin 3.5 g/dL (3.2-4.8) Calcium Level 9.3 mg/dL (8.7-10.4) Total Protein 6.6 g/dL (5.7-8.2) LFT Test 11/27/24 06:34 Alanine Aminotransferase (ALT) < 9 U/L (7-40) Alkaline Phosphatase 85 U/L (46-116) Aspartate Amino Transferase (AST) 20 U/L (13-40) Total Bilirubin 0.4 mg/dL (0.2-1.0) Urinalysis Test 11/22/24 15:15 Urine Color Light-yellow (Yellow) Urine Clarity Clear (Clear) Urine pH 5.5 (5.0-9.0) Urine Specific [place] 1.010 (1.001-1.035) Urine Protein Negative (Negative) Urine Ketones Negative (Negative) Urine Blood 1+ /uL (Negative) H Urine Nitrite Negative (Negative) Urine Bilirubin Negative (Negative) Urine Urobilinogen Normal mg/dL (Negative) Urine Leukocyte Esterase Negative /uL (Negative) Urine RBC 2 /hpf (0 - 4) Urine WBC 5 /hpf (0 - 5) Urine Squamous Epithelial Cells Few /hpf (<5) Urine Bacteria Few /hpf (None Seen) H Urine Hyaline Casts Few /lpf (0 - 2) Urine Glucose Normal mg/dL (Normal) Blood Gas Results Test 11/27/24 09:25 11/27/24 11:39 Arterial Blood pH 7.483 (7.350-7.450) 7.502 (7.350-7.450) FiO2 % 72.0 80.0 Assessment/Plan My Orders Orders - BENJAMIN MARSHALL DO Procedure Category Date Status Time Nm Vq Scan NM 11/27/24 Logged 09:54 Chest Xray 1 View XY 11/27/24 Resulted 09:54 Transfer Orders XFER 11/27/24 Transmitted 09:54 Nm Vq Scan NM 11/27/24 Logged 10:00 Date of Service: Nov 27, 2024 BENJAMIN MARSHALL DO Nov 27, 2024 20:23
[2024-11-27] MEDS: methylPREDNISolone SOD SUCC 40 MG/ML VL IV SCH (22:30)
--- NOTE | 2024-11-27 23:32 | DVHPN2 ---
Progress Note - Dictate Date Seen: Nov 27, 2024 Medical Necessity Reason Pt with a Central, PICC or Fol: Yes The following are medically ne: Schilling Catheter Reason for schilling catheter: Strict I&O Subjective Patient seen and examined at bedside. Remains on supplemental oxygen Overnight events reviewed. vital signs Vital Sign Date Time Temp Pulse Resp B/P (MAP) Pulse Ox O2 Delivery O2 Flow Rate FiO2 11/27/24 22:00 97 11/27/24 21:52 22 95/63 11/27/24 21:00 99 11/27/24 20:00 97.6 97.6 11/27/24 20:00 Hi-Flow NC 10 90 90 Total Intake and Output 11/26/24 11/26/24 11/27/24 15:00 23:00 07:00 Intake Total 50 ml 1110 ml 600 ml Output Total 350 ml 450 ml Balance 50 ml 760 ml 150 ml medications Current Medications Medications Dose Ordered Sig/Govnid Route Start Time Stop Time Status Last Admin Dose Admin Albuterol 2.5 mg Q6HPRN PRN NEB 11/22/24 19:15 11/27/24 19:06 2.5 MG Aspirin 81 mg DAILY PO 11/23/24 10:00 11/27/24 10:00 81 MG Atorvastatin Calcium 10 mg HS PO 11/22/24 22:00 11/27/24 22:30 10 MG Azithromycin 250 ml @ 125 mls/hr DAILY IV 11/23/24 10:00 11/27/24 10:00 125 MLS/HR Temazepam 15 mg QHSP PRN PO 11/22/24 19:15 11/26/24 21:30 15 MG Ondansetron HCl 4 mg Q4HP PRN IV 11/22/24 19:15 Enoxaparin Sodium 40 mg DAILY SC 11/23/24 10:00 11/27/24 10:00 40 MG Acetaminophen 650 mg Q6HP PRN PO 11/22/24 19:15 11/27/24 05:54 650 MG Ceftriaxone Sodium 50 ml @ 100 mls/hr DAILY@09 IV 11/25/24 09:00 11/27/24 09:00 100 MLS/HR Ipratropium [place] 0.5 mg Q6HWA NEB 11/25/24 01:00 11/27/24 19:05 0.5 MG Alprazolam 0.5 mg Q8HPRN PRN PO 11/26/24 01:00 11/27/24 00:02 0.5 MG Furosemide 40 mg DAILY IV 11/28/24 10:00 Methylprednisolone Sodium Succinate 40 mg Q8HR IV 11/27/24 22:00 11/27/24 22:30 40 MG Hydromorphone HCl 0.25 mg Q4HPRN PRN IV 11/27/24 17:30 11/27/24 21:20 0.25 MG objective Gen.: Patient lying in bed in no apparent distress. On supplemental oxygen. Head: Normocephalic, atraumatic. Eyes: EOMI/PERRLA. Ears: Normal hearing. Normal anatomy. Neck/trachea: Trachea midline, supple. Nose: Normal external anatomy. Mouth: Moist mucous membranes. Chest: Decreased air entry bilaterally. No wheezing or rhonchi. Cardiovascular: Positive S1, positive S2. Regular rate and rhythm. Abdomen: Positive bowel sounds in all 4 quadrants. Soft, non-tender, non- distended. : Deferred. Rectal: Deferred. Skin: Warm, dry. Intact. Extremities: 2+ radial pulses bilaterally. No lower extremity edema. Neuro: Awake, alert, oriented x3. No gross motor or sensory deficits. Cranial nerves II through XII intact. Gait not assessed. laboratory and microbiology Laboratory Tests 11/27/24 06:34 11/24/24 07:00 Test 11/27/24 06:34 Range/Units Serum Glucose 133 H 74-106 mg/dL Assessment/Plan Impression: Acute hypoxic respiratory failure Dependence on supplemental oxygen Pulmonary fibrosis Lung mass Mediastinal lymphadenopathy Chronic interstitial lung disease Bronchiectasis GGO on imaging Elevated D-dimer. PE ruled out. Events: Patient upgraded to ICU. Currently on high-flow supplemental oxygen, flow rate 60 LPM , FiO2 70% Increased O2 requirements Taper O2 as tolerated ABG reviewed, compensated Chest x-ray reviewed, notable for interstitial opacities, pneumonia. Continue bronchodilators Continue IV steroids - Solu-Medrol 40 mg q.8 hours Continue antibiotics Diurese to euvolemia w/ Lasix - dose increased to 40 mg IV QD Monitor renal function. Monitor electrolytes. Supplement as necessary. Pain control Avoid oversedation Labs and imaging reviewed. Rest of plan as noted below. Plan: Supplemental oxygen Titrate to keep O2 sats above 92%. Taper O2 as tolerated. Increased O2 requirements Continue bronchodilators. Continue antibiotics Consider CT-guided biopsy if no resolution with antibiotics Diurese to euvolemia w/ Lasix Monitor renal function. Monitor electrolytes. Supplement as necessary. Potassium supplementation Monitor ins and outs. GI/DVT prophylaxis. Prognosis: Poor given patient's multiple co-morbidities. Condition: Critical Rest of plan per hospitalist and other consultants. A total of 35 minutes of critical care time was spent reviewing the patient record, examining the patient, making a diagnostic and therapeutic plan, discussing this plan with the medical personnel, following up on diagnostic studies and following the patient for clinical stability excluding any and all procedures. At least 50% of this time was spent in direct, [id number] contact. Thank you, Dr. Patton, for allowing me to participate in this patient's care. Further recommendations will depend on the patient's clinical course. Please do not hesitate to contact me if you have any questions or concerns. This medical document was created using an electronic medical record system with [employer] computerized dictation system. Although these documentations are being carefully reviewed, there may still be some phonetic and typographical changes. The errors are purely typographical, due to imperfection on the software program, and do not reflect any compromise in the patient's medical care. Plan discussed with: Patient, Other (WENDY Sebastian) Critical Care Time(min): 35 LYRIC DAVIDSON MD Nov 27, 2024 23:32
[2024-11-28] VITALS (35 sets, daily range): BP systolic 100–143; BP diastolic 62–82; PULSE 91–116; RESP 14–31; TEMP 97.8–98.7; O2SAT 85–98
[2024-11-28] MEDS: IOHEXOL 350 MG/ML 100ML IJ ONE (02:06)
[2024-11-28 09:15] LABS: Potassium 4.9 mmol/L (3.5-5.1)
[2024-11-28 09:16] LABS: Anion Gap 6 (5-15); Carbon Dioxide 29 mmol/L (20-31)
[2024-11-28 09:17] LABS: Calcium 9.3 mg/dL (8.7-10.4)
[2024-11-28 09:22] LABS: BUN/Creatinine Ratio 25.4 (10.0-20.0); Blood Urea Nitrogen 16 mg/dL (9-23)
[2024-11-28 09:31] LABS: Chloride 89 mmol/L (98-107); Glucose 212 mg/dL (74-106); Sodium 124 mmol/L (136-145)
[2024-11-28] MEDS: FUROSEMIDE 20 MG/2 ML VIAL IV SCH (10:12)
[2024-11-28] MEDS ORDERED: PIPERACILLIN-TAZOB 3.375GM 100 ML IV ONE (16:00)
[2024-11-28] MEDS: PIPERACILLIN-TAZOB 3.375GM 100 ML IV SCH (17:27)
[2024-11-28 21:13] LABS: Erythrocyte Sedimentation Rate 74 mm/hr (0-20)
[2024-11-29] VITALS (37 sets, daily range): BP systolic 89–148; BP diastolic 52–89; PULSE 90–117; RESP 17–39; TEMP 98.1–99; O2SAT 88–98
[2024-11-29 03:52] LABS: Anion Gap 6 (5-15); Basophils # (auto) 0 10 ^3/uL (0-0.2); Basophils % (auto) 0.1 % (0.0-2.0); Eosinophils # (auto) 0 10 ^3/uL (0-0.8); Hematocrit 35.9 % (36.0-46.0); Hemoglobin 12.5 g/dL (12.2-16.2); Lymphocytes # (auto) 0.9 10 ^3/uL (0.4-5.4); Lymphocytes % (auto) 6.1 % (10.0-50.0); Mean Corpuscular Hemoglobin 30.8 pg (28.0-32.0); Mean Corpuscular Hgb Conc. 34.9 g/dL (32.0-36.0); Mean Corpuscular Volume 88.2 fL (80.0-100.0); Monocytes # (auto) 0.4 10 ^3/uL (0-1.3); Monocytes % (auto) 2.9 % (0.0-12.0); Neutrophils # (auto) 13.4 10 ^3/uL (1.6-8.6); Neutrophils % (auto) 90.9 % (37.0-80.0); Nucleated Red Blood Cells % 0.1 %; Platelet Count (auto) 408 10^3/uL (140-450); Potassium 4.2 mmol/L (3.5-5.1); Red Blood Cells 4.07 10^6/uL (4.0-5.20); Red Cell Distribution Width 13.9 % (11.8-14.3); White Blood Cell 14.8 10^3/uL (4.4-10.8)
[2024-11-29 03:53] LABS: Calcium 9.7 mg/dL (8.7-10.4)
[2024-11-29 03:58] LABS: BUN/Creatinine Ratio 28.6 (10.0-20.0); Blood Urea Nitrogen 18 mg/dL (9-23)
[2024-11-29 03:59] LABS: Magnesium 2.1 mg/dL (1.6-2.6)
[2024-11-29 04:04] LABS: Carbon Dioxide 33 mmol/L (20-31); Chloride 86 mmol/L (98-107); Glucose 189 mg/dL (74-106); Sodium 125 mmol/L (136-145)
--- NOTE | 2024-11-29 05:18 | DVH ---
[facility]: Single frontal view of the chest was obtained COMPARISON: XY CHEST XRAY 1 VIEW on DOS: 11/27/24, XY CHEST PORTABLE on DOS: 11/24/24, XY CHEST PORTABL E on DOS: 11/22/24 FINDINGS: Lines and Tubes: None Lungs: Multifocal airspace disease. Pleura: No effusion. No pneumothorax. Cardiomediastinal contours: Unremarkable Bones: Unremarkable IMPRESSION: Slight interval improvement in aeration of the lungs.
--- NOTE | 2024-11-29 08:19 | DVHPNRES ---
Progress Note Date Seen: Nov 28, 2024 Resident Creating Document: JACOB LEONE RESIDENT Medical Necessity Reason Pt with a Central, PICC or Fol: Yes The following are medically ne: Schilling Catheter Reason for schilling catheter: Strict I&O Subjective Review of Systems Patient seen and examined at bedside Patient comes currently on high-flow nasal cannula 60% FiO2 and 60 L Patient mentioned improvement in her symptoms Objective vital signs Vital Sign Date Time Temp Pulse Resp B/P (MAP) Pulse Ox O2 Delivery O2 Flow Rate FiO2 11/29/24 06:51 111 27 94 11/29/24 06:41 60.0 55 11/29/24 06:40 Hi-Flow Heated NC+ 11/29/24 06:00 118/74 (89) 11/29/24 04:00 98.1 98.1 Total Intake and Output 11/28/24 11/28/24 11/29/24 15:00 23:00 07:00 Intake Total 300 ml 960 ml 580 ml Output Total 925 ml 600 ml Balance 300 ml 35 ml -20 ml medications Current Medications Medications Dose Ordered Sig/Govind Route Start Time Stop Time Status Last Admin Dose Admin Albuterol 2.5 mg Q6HPRN PRN NEB 11/22/24 19:15 11/29/24 06:40 2.5 MG Aspirin 81 mg DAILY PO 11/23/24 10:00 11/28/24 10:11 81 MG Azithromycin 250 ml @ 125 mls/hr DAILY IV 11/23/24 10:00 11/28/24 10:11 125 MLS/HR Ondansetron HCl 4 mg Q4HP PRN IV 11/22/24 19:15 Enoxaparin Sodium 40 mg DAILY SC 11/23/24 10:00 11/28/24 10:11 40 MG Acetaminophen 650 mg Q6HP PRN PO 11/22/24 19:15 11/29/24 04:57 650 MG Ipratropium [place] 0.5 mg Q6HWA NEB 11/25/24 01:00 11/29/24 06:40 0.5 MG Alprazolam 0.5 mg Q8HPRN PRN PO 11/26/24 01:00 11/27/24 00:02 0.5 MG Methylprednisolone Sodium Succinate 40 mg Q8HR IV 11/27/24 22:00 11/29/24 05:55 40 MG Piperacillin Sod/ Tazobactam Sod 100 ml @ 25 mls/hr Q8H IV 11/28/24 16:15 11/29/24 00:15 25 MLS/HR Examination Examination General Appearance: Alert, Oriented X3, Cooperative, mild distress, on high- flow nasal cannula HEENT: EOMI Respiratory: Bilateral coarse crackles Cardiovascular: Regular rate, Normal S1, Normal S2 Abdominal: Normal bowel sounds, soft Extremities: Mild clubbing, No cyanosis, No edema, Normal pulses, No tenderness/swelling Skin: No rashes, No breakdown Neuro: Speech, tone laboratory and microbiology Laboratory Tests 11/29/24 02:58 Test 11/29/24 02:58 Range/Units Serum Glucose 189 H 74-106 mg/dL Microbiology Date/Time Source Procedure Growth Status 11/27/24 10:15 Nose MRSA Screen - Final Complete Labs and/or images reviewed: Labs reviewed by me, Image(s) reviewed by me Problem List/Assessment/Plan Problem List/Assessment/Plan Assessment/plan Neurology Cardiology #Hypertension -currently normal BP # NSTEMI likely type 2 -monitor trops # acute diastolic heart failure -stopped IV Lasix considering possible right-sided heart failure Respiratory # acute hypoxic respiratory failure due to ? Pneumonia overlying interstitial lung disease -currently on high-flow nasal cannula, 60% FiO2 and 60 L #? Community-acquired pneumonia, Gram-positive/Gram-negative -IV antibiotics, changed to vancomycin and Zosyn # interstitial fibrosis/lung disease, extensive -likely [place] joe of ARDS 20 years ago, other causes not ruled out yet, workup ordered -currently on IV methylprednisolone 40 mg Q8 # right lower lung mass/focal consolidation, questionable malignancy -patient will need eventually a biopsy # pulmonary hypertension, likely group 3 -seen on echo and CT GI Endocrine Hematology/oncology Nephrology # hyponatremia Workup ordered Monitor Psychiatry # anxiety Resume home meds, judicious use considering patient is on high-flow nasal cannula Nutrition Cardiac diet DVT prophylaxis Lovenox Code status discussed with the patient for greater than 21 minutes, full code Case discussed with Dr. Marshall Critical care time excluding procedures , 67 min Unstable to transfer considering patient is on HFNC Plan discussed with: Patient, Other My Orders My Orders Orders - JACOB LEONE RESIDENT Procedure Category Date Status Time Covid19 Antigen Latanya LAB 11/28/24 Logged Respiratory Culture LEON 11/28/24 In Process W/ Gs 16:52 Blood Culture LEON 11/28/24 In Process 14:36 Osmolality Urine LAB 11/28/24 Logged 10:36 Urine Sodium LAB 11/28/24 Logged 10:36 Teri Direct W/Reflex LAB 11/28/24 In Process To Comp. 15:57 Rheumatoid Arthritis LAB 11/28/24 In Process Factor 15:57 Piperacillin-Tazob PHA 11/28/24 In Process 3.375gm (Zosyn 3.375g 16:15 Chest Portable XY 11/29/24 Resulted 04:00 Date of Service: Nov 28, 2024 Billing Provider: MONICA MARSHALL MD Common Visit Codes: [id number] CARE 30-74 MIN JACOB LEONE RESIDENT Nov 29, 2024 08:19 MONICA MARSHALL MD Nov 29, 2024 12:49
[2024-11-29] MEDS ORDERED: VANCOMYCIN PER PHARMACY 0 MG IV SCH (09:15)
[2024-11-29] MEDS ORDERED: ACETAMINOPHEN 325 MG TAB PO PRN (09:30)
[2024-11-29] MEDS: VANCOMYCIN 1GM/250ML KIT 250 ML IV SCH (09:45)
[2024-11-29] MEDS: LIDOCAINE 5% TOPICAL PATCH TOP SCH (10:00)
[2024-11-29 11:02] LABS: INR 1.31 (0.9-1.15); Partial Thromboplastin Time 26.8 SEC (24.5-34.5); Prothrombin Time 13.5 sec (9.3-11.8)
--- NOTE | 2024-11-29 18:53 | DVHPNRES ---
Progress Note Date Seen: Nov 29, 2024 Resident Creating Document: JACOB LEONE RESIDENT Medical Necessity Reason Pt with a Central, PICC or Fol: Yes The following are medically ne: Schilling Catheter Reason for schilling catheter: Strict I&O Subjective Review of Systems Patient seen and examined at bedside Patient comes currently on high-flow nasal cannula 60% FiO2 and 60 L Patient mentioned improvement in her symptoms Objective vital signs Vital Sign Date Time Temp Pulse Resp B/P (MAP) Pulse Ox O2 Delivery O2 Flow Rate FiO2 11/29/24 17:00 110 32 129/89 (102) 88 11/29/24 16:00 99.0 99.0 11/29/24 16:00 Hi-Flow Heated NC+ 50 60 60 Total Intake and Output 11/28/24 11/28/24 11/29/24 15:00 23:00 07:00 Intake Total 300 ml 960 ml 580 ml Output Total 925 ml 600 ml Balance 300 ml 35 ml -20 ml medications Current Medications Medications Dose Ordered Sig/Govind Route Start Time Stop Time Status Last Admin Dose Admin Albuterol 2.5 mg Q6HPRN PRN NEB 11/22/24 19:15 11/29/24 10:55 2.5 MG Azithromycin 250 ml @ 125 mls/hr DAILY IV 11/23/24 10:00 11/29/24 10:00 125 MLS/HR Ondansetron HCl 4 mg Q4HP PRN IV 11/22/24 19:15 Enoxaparin Sodium 40 mg DAILY SC 11/23/24 10:00 11/29/24 10:00 40 MG Acetaminophen 650 mg Q6HP PRN PO 11/22/24 19:15 11/29/24 04:57 650 MG Ipratropium [place] 0.5 mg Q6HWA NEB 11/25/24 01:00 11/29/24 10:55 0.5 MG Alprazolam 0.5 mg Q8HPRN PRN PO 11/26/24 01:00 11/27/24 00:02 0.5 MG Methylprednisolone Sodium Succinate 40 mg Q8HR IV 11/27/24 22:00 11/29/24 14:17 40 MG Piperacillin Sod/ Tazobactam Sod 100 ml @ 25 mls/hr Q8H IV 11/28/24 16:15 11/29/24 17:24 25 MLS/HR Vancomycin HCl 0 ml @ 0 mls/hr UD IV 11/29/24 09:15 Lidocaine 1 patch DAILY TOP 11/29/24 10:00 11/29/24 10:00 1 PATCH Acetaminophen 650 mg Q6HP PRN PO 11/29/24 09:30 Vancomycin HCl 250 ml @ 250 mls/hr Q15H IV 11/30/24 05:00 Examination Examination General Appearance: Alert, Oriented X3, Cooperative, mild distress, on high- flow nasal cannula HEENT: EOMI Respiratory: Bilateral coarse crackles Cardiovascular: Regular rate, Normal S1, Normal S2 Abdominal: Normal bowel sounds, soft Extremities: Mild clubbing, No cyanosis, No edema, Normal pulses, No tenderness/swelling Skin: No rashes, No breakdown Neuro: normal Speech, tone laboratory and microbiology Laboratory Tests 11/29/24 02:58 Test 11/29/24 02:58 Range/Units Serum Glucose 189 H 74-106 mg/dL Microbiology Date/Time Source Procedure Growth Status 11/28/24 16:45 Sputum Gram Stain - Final Resulted 11/28/24 16:45 Sputum Respiratory Culture - Preliminary Resulted 11/28/24 16:42 Blood Blood Culture - Preliminary NO GROWTH AFTER 24 HOURS OF INCUBATION. Resulted 11/27/24 10:15 Nose MRSA Screen - Final Complete Labs and/or images reviewed: Labs reviewed by me, Image(s) reviewed by me Problem List/Assessment/Plan Problem List/Assessment/Plan Assessment/plan Neurology Cardiology #Hypertension -currently normal BP # NSTEMI likely type 2 -monitor trops # acute diastolic heart failure -stopped IV Lasix considering possible right-sided heart failure Respiratory # acute hypoxic respiratory failure due to ? Pneumonia overlying interstitial lung disease -currently on high-flow nasal cannula, 60% FiO2 and 60 L #? Community-acquired pneumonia, Gram-positive/Gram-negative -IV antibiotics, changed to vancomycin and Zosyn # interstitial fibrosis/lung disease, extensive -likely [place] joe of ARDS 20 years ago, other causes not ruled out yet, workup ordered -currently on IV methylprednisolone 40 mg Q8 # right lower lung mass/focal consolidation, questionable malignancy -patient will need eventually a biopsy # pulmonary hypertension, likely group 3 -seen on echo and CT GI Endocrine Hematology/oncology Nephrology # hyponatremia Workup ordered Monitor Psychiatry # anxiety Resume home meds, judicious use considering patient is on high-flow nasal cannula Nutrition Cardiac diet DVT prophylaxis Lovenox Code status discussed with the patient for greater than 21 minutes, full code Case discussed with Dr. Marshall Critical care time excluding procedures , 63 min Unstable to transfer considering patient is on HFNC Plan discussed with: Other My Orders My Orders Orders - JACOB LEONE Procedure Category Date Status Time Chest Portable XY 11/29/24 Resulted 04:00 Rapid Influenza A&B LAB 11/29/24 Logged 09:08 Vancomycin Per PHA 11/29/24 In Process Pharmacy 09:15 Lidocaine 5% Topical PHA 11/29/24 In Process Patch (Lidoderm 5% 10:00 Acetaminophen Tablet PHA 11/29/24 In Process (Tylenol Tablet) 09:30 Vancomycin 1gm/250ml PHA 11/30/24 In Process Kit 05:00 Vancomycin,Trough LAB 12/01/24 Verified 10:00 Vancomycin Per SHARDA 12/01/24 In Process Pharmacy Protoc 11:00 Creatinine LAB 11/30/24 Verified 04:00 Dietary Evaluation Review Comments: Monitor PO intake to reach 75% of her needs. Expected Outcomes/Goals: Gradual weight loss, improved glucose levels and overall medical conditions Date of Service: Nov 29, 2024 Billing Provider: MONICA MARSHALL MD Common Visit Codes: [id number] CARE 30-74 MIN JACOB LEONE RESIDENT Nov 29, 2024 18:53 MONICA MARSHALL MD Nov 30, 2024 13:43
[2024-11-30] VITALS (30 sets, daily range): BP systolic 96–142; BP diastolic 56–88; PULSE 86–111; RESP 12–31; TEMP 97.1–98.6; O2SAT 91–98
[2024-11-30 03:51] LABS: Basophils # (auto) 0 10 ^3/uL (0-0.2); Basophils % (auto) 0.1 % (0.0-2.0); Eosinophils # (auto) 0 10 ^3/uL (0-0.8); Hematocrit 36.2 % (36.0-46.0); Hemoglobin 12.5 g/dL (12.2-16.2); Lymphocytes % (auto) 7.6 % (10.0-50.0); Mean Corpuscular Hemoglobin 30.8 pg (28.0-32.0); Mean Corpuscular Hgb Conc. 34.6 g/dL (32.0-36.0); Mean Corpuscular Volume 88.9 fL (80.0-100.0); Monocytes # (auto) 0.5 10 ^3/uL (0-1.3); Monocytes % (auto) 3.8 % (0.0-12.0); Neutrophils # (auto) 11.6 10 ^3/uL (1.6-8.6); Neutrophils % (auto) 88.5 % (37.0-80.0); Nucleated Red Blood Cells % 0.1 %; Platelet Count (auto) 425 10^3/uL (140-450); Red Blood Cells 4.07 10^6/uL (4.0-5.20); White Blood Cell 13.1 10^3/uL (4.4-10.8)
[2024-11-30 03:55] LABS: Potassium 4.1 mmol/L (3.5-5.1)
[2024-11-30 03:56] LABS: Anion Gap 2 (5-15)
[2024-11-30 03:57] LABS: Calcium 9.5 mg/dL (8.7-10.4)
[2024-11-30 04:02] LABS: BUN/Creatinine Ratio 26.2 (10.0-20.0); Blood Urea Nitrogen 17 mg/dL (9-23); Magnesium 2.5 mg/dL (1.6-2.6)
[2024-11-30 04:15] LABS: Carbon Dioxide 35 mmol/L (20-31); Chloride 92 mmol/L (98-107); Glucose 217 mg/dL (74-106); Sodium 129 mmol/L (136-145)
--- NOTE | 2024-11-30 04:46 | DVH ---
[facility] Single frontal view of the chest was obtained Comparison: XY CHEST PORTABLE on DOS: 11/29/24 FINDINGS: Lines and Tubes: None Lungs: Bilateral airspace disease similar to prior study. Pleura: No effusion. No pneumothorax. Cardiomediastinal contours: Unremarkable Bones: No acute osseous abnormality. IMPRESSION: 1. Bilateral airspace disease similar to prior study.
[2024-11-30] MEDS: VANCOMYCIN 1GM/250ML KIT 250 ML IV SCH (06:11)
[2024-11-30 11:07] LABS: Anti-Nuclear Antibody Direct Negative (Negative); Rheumatoid Arthritis Factor 12.3 IU/mL (<14.0)
[2024-11-30] MEDS: SALINE 0.65 % NASAL SPRAY 45ML BOTTLE EACHNOSTRI SCH (13:30)
--- NOTE | 2024-11-30 15:48 | MEDREC ---
[facility] ASP Intervention Section I [facility] ASP Intervention: Review courses of therapy (PRELIMINARY SPUTUM CULTURE WITH YEAST - CONSIDER ADDING ANTIFUNGAL IF CLINICALLY RELEVANT) STUART TERRELL PHARMACIST Nov 30, 2024 15:48
--- NOTE | 2024-11-30 18:05 | DVHPNRES ---
Progress Note Date Seen: Nov 30, 2024 Resident Creating Document: JACOB LEONE RESIDENT Medical Necessity Reason Pt with a Central, PICC or Fol: Yes The following are medically ne: Schilling Catheter Reason for schilling catheter: Strict I&O Subjective Review of Systems Patient seen and examined at bedside Patient comes currently on high-flow nasal cannula 50% FiO2 and 60 L Patient mentioned improvement in her symptoms Objective vital signs Vital Sign Date Time Temp Pulse Resp B/P (MAP) Pulse Ox O2 Delivery O2 Flow Rate FiO2 11/30/24 15:00 104 20 116/69 (85) 94 11/30/24 14:00 50.0 60 11/30/24 12:00 Hi-Flow Heated NC+ 11/30/24 12:00 98.1 98.1 Total Intake and Output 11/29/24 11/29/24 11/30/24 15:00 23:00 07:00 Intake Total 1090 ml 1100 ml 778 ml Output Total 550 ml 900 ml Balance 1090 ml 550 ml -122 ml medications Current Medications Medications Dose Ordered Sig/Govind Route Start Time Stop Time Status Last Admin Dose Admin Albuterol 2.5 mg Q6HPRN PRN NEB 11/22/24 19:15 11/30/24 11:30 2.5 MG Azithromycin 250 ml @ 125 mls/hr DAILY IV 11/23/24 10:00 11/30/24 10:00 125 MLS/HR Ondansetron HCl 4 mg Q4HP PRN IV 11/22/24 19:15 Enoxaparin Sodium 40 mg DAILY SC 11/23/24 10:00 11/30/24 09:22 40 MG Acetaminophen 650 mg Q6HP PRN PO 11/22/24 19:15 11/29/24 22:10 650 MG Ipratropium [place] 0.5 mg Q6HWA NEB 11/25/24 01:00 11/30/24 11:30 0.5 MG Alprazolam 0.5 mg Q8HPRN PRN PO 11/26/24 01:00 11/30/24 14:34 0.5 MG Methylprednisolone Sodium Succinate 40 mg Q8HR IV 11/27/24 22:00 11/30/24 13:50 40 MG Piperacillin Sod/ Tazobactam Sod 100 ml @ 25 mls/hr Q8H IV 11/28/24 16:15 11/30/24 17:56 25 MLS/HR Vancomycin HCl 0 ml @ 0 mls/hr UD IV 11/29/24 09:15 Lidocaine 1 patch DAILY TOP 11/29/24 10:00 11/30/24 13:30 1 PATCH Acetaminophen 650 mg Q6HP PRN PO 11/29/24 09:30 Vancomycin HCl 250 ml @ 250 mls/hr Q15H IV 11/30/24 05:00 11/30/24 06:11 250 MLS/HR Sodium Chloride 1 spr QID EACHNOSTRI 11/30/24 12:00 11/30/24 17:56 1 SPR Examination Examination General Appearance: Alert, Oriented X3, Cooperative, mild distress, on high- flow nasal cannula HEENT: EOMI Respiratory: Bilateral coarse crackles Cardiovascular: Regular rate, Normal S1, Normal S2 Abdominal: Normal bowel sounds, soft Extremities: Mild clubbing, No cyanosis, No edema, Normal pulses, No tenderness/swelling Skin: No rashes, No breakdown Neuro: normal Speech, tone laboratory and microbiology Laboratory Tests 11/30/24 03:11 Test 11/30/24 03:11 Range/Units Serum Glucose 217 H 74-106 mg/dL Microbiology Date/Time Source Procedure Growth Status 11/28/24 16:45 Sputum Gram Stain - Final Resulted 11/28/24 16:45 Sputum Respiratory Culture - Preliminary Resulted 11/28/24 16:42 Blood Blood Culture - Preliminary NO GROWTH AFTER 48 HOURS OF INCUBATION. Resulted 11/27/24 10:15 Nose MRSA Screen - Final Complete Labs and/or images reviewed: Labs reviewed by me, Image(s) reviewed by me Problem List/Assessment/Plan Problem List/Assessment/Plan Assessment/plan Neurology Cardiology #Hypertension -currently normal BP # NSTEMI likely type 2 -monitor trops # acute diastolic heart failure -stopped IV Lasix considering possible right-sided heart failure Respiratory # acute hypoxic respiratory failure due to ? Pneumonia overlying interstitial lung disease -currently on high-flow nasal cannula, 50% FiO2 and 60 L #? 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 Marshall Critical care time excluding procedures , 61 min Unstable to transfer considering patient is on HFNC Plan discussed with: Patient, Other My Orders My Orders Orders - JACOB LEONE Procedure Category Date Status Time Chest Portable XY 11/30/24 Resulted 04:00 Abg W/ Co-Ox RT 11/30/24 Logged 04:00 Abg W/ Co-Ox RT 11/30/24 Logged 09:38 Saline ([place] Nasal PHA 11/30/24 In Process [place]) 12:00 Cardiac DIET 11/30/24 Transmitted Diet-2gna,Lofat,Lochol Dinner Dietary Evaluation Review Comments: Monitor PO intake to reach 75% of her needs. Expected Outcomes/Goals: Gradual weight loss, improved glucose levels and overall medical conditions Date of Service: Nov 30, 2024 Billing Provider: MONICA MARSHALL MD Common Visit Codes: [id number] CARE 30-74 MIN JACOB LEONE Nov 30, 2024 18:05 MONICA MARSHALL MD Dec 01, 2024 10:55
[2024-11-30] MEDS: MICAFUNGIN SODIUM 100 MG in SODIUM CHL 0.9% 100 ML IV ONE (20:07)
[2024-12-01] VITALS (30 sets, daily range): BP systolic 106–156; BP diastolic 63–88; PULSE 75–117; RESP 15–41; TEMP 98–98.9; O2SAT 79–97
[2024-12-01 03:55] LABS: Potassium 4.4 mmol/L (3.5-5.1)
[2024-12-01 03:56] LABS: Anion Gap 1 (5-15); Calcium 8.9 mg/dL (8.7-10.4)
[2024-12-01 04:01] LABS: BUN/Creatinine Ratio 24.2 (10.0-20.0); Blood Urea Nitrogen 16 mg/dL (9-23)
[2024-12-01 04:06] LABS: Carbon Dioxide 35 mmol/L (20-31); Chloride 96 mmol/L (98-107); Glucose 224 mg/dL (74-106); Sodium 132 mmol/L (136-145)
[2024-12-01 10:16] LABS: Basophils # (auto) 0 10 ^3/uL (0-0.2); Basophils % (auto) 0.3 % (0.0-2.0); Eosinophils # (auto) 0 10 ^3/uL (0-0.8); Hemoglobin 12.2 g/dL (12.2-16.2); Lymphocytes # (auto) 1.2 10 ^3/uL (0.4-5.4); Neutrophils # (auto) 12.4 10 ^3/uL (1.6-8.6); White Blood Cell 14.1 10^3/uL (4.4-10.8)
[2024-12-01 10:23] LABS: Hematocrit 35.7 % (36.0-46.0); Lymphocytes % (auto) 8.2 % (10.0-50.0); Mean Corpuscular Hemoglobin 30.5 pg (28.0-32.0); Mean Corpuscular Hgb Conc. 34.2 g/dL (32.0-36.0); Mean Corpuscular Volume 89.3 fL (80.0-100.0); Monocytes # (auto) 0.5 10 ^3/uL (0-1.3); Monocytes % (auto) 3.8 % (0.0-12.0); Neutrophils % (auto) 87.7 % (37.0-80.0); Platelet Count (auto) 455 10^3/uL (140-450); Red Blood Cells 3.99 10^6/uL (4.0-5.20); Red Cell Distribution Width 14.3 % (11.8-14.3)
[2024-12-01] MEDS: MICAFUNGIN SODIUM 100 MG in SODIUM CHL 0.9% 100 ML IV SCH (13:09)
--- NOTE | 2024-12-01 14:19 | DVHPNRES ---
Progress Note Date Seen: Dec 01, 2024 Resident Creating Document: JACOB LEONE RESIDENT Medical Necessity Reason Pt with a Central, PICC or Fol: Yes The following are medically ne: Schilling Catheter Reason for schilling catheter: Strict I&O Subjective Review of Systems pt seen and examined at bedside. mentions no active complaints. Patient was initially on high-flow nasal cannula 60% FiO2 and 60 L of oxygen Had mild episode of epistaxis. Later patient was tried on subtle mask but had work of breathing and was started again on high-flow nasal cannula Mentioning of back pain Objective vital signs Vital Sign Date Time Temp Pulse Resp B/P (MAP) Pulse Ox O2 Delivery O2 Flow Rate FiO2 12/01/24 12:50 106 19 96 12/01/24 12:42 Simple Mask* 6 50 12/01/24 06:00 142/76 (98) 12/01/24 04:00 98.9 98.9 Total Intake and Output 11/30/24 11/30/24 12/01/24 15:00 23:00 07:00 Intake Total 590 ml 1020 ml 300 ml Output Total 300 ml 475 ml Balance 590 ml 720 ml -175 ml medications Current Medications Medications Dose Ordered Sig/Govind Route Start Time Stop Time Status Last Admin Dose Admin Albuterol 2.5 mg Q6HPRN PRN NEB 11/22/24 19:15 12/01/24 12:42 2.5 MG Ondansetron HCl 4 mg Q4HP PRN IV 11/22/24 19:15 Acetaminophen 650 mg Q6HP PRN PO 11/22/24 19:15 12/01/24 11:36 650 MG Ipratropium [place] 0.5 mg Q6HWA NEB 11/25/24 01:00 12/01/24 12:42 0.5 MG Alprazolam 0.5 mg Q8HPRN PRN PO 11/26/24 01:00 12/01/24 09:43 0.5 MG Methylprednisolone Sodium Succinate 40 mg Q8HR IV 11/27/24 22:00 12/01/24 05:45 40 MG Piperacillin Sod/ Tazobactam Sod 100 ml @ 25 mls/hr Q8H IV 11/28/24 16:15 12/01/24 09:43 25 MLS/HR Vancomycin HCl 0 ml @ 0 mls/hr UD IV 11/29/24 09:15 Lidocaine 1 patch DAILY TOP 11/29/24 10:00 12/01/24 11:35 1 PATCH Acetaminophen 650 mg Q6HP PRN PO 11/29/24 09:30 Vancomycin HCl 250 ml @ 250 mls/hr Q15H IV 11/30/24 05:00 12/01/24 11:36 250 MLS/HR Sodium Chloride 1 spr QID EACHNOSTRI 11/30/24 12:00 12/01/24 11:36 1 SPR Micafungin Sodium 100 mg/Sodium Chloride 100 ml @ 100 mls/hr DAILY IV 12/01/24 10:00 12/01/24 13:09 100 MLS/HR Azithromycin 500 mg DAILY PO 12/02/24 10:00 Examination Examination General Appearance: Alert, Oriented X3, Cooperative, mild distress, on high- flow nasal cannula HEENT: EOMI Respiratory: Bilateral coarse crackles Cardiovascular: Regular rate, Normal S1, Normal S2 Abdominal: Normal bowel sounds, soft Extremities: Mild clubbing, No cyanosis, No edema, Normal pulses, No tenderness/swelling Skin: No rashes, No breakdown Neuro: normal Speech, tone laboratory and microbiology Laboratory Tests 12/01/24 09:54 12/01/24 03:03 Test 12/01/24 03:03 Range/Units Serum Glucose 224 H 74-106 mg/dL Microbiology Date/Time Source Procedure Growth Status 11/28/24 16:45 Sputum Gram Stain - Final Complete 11/28/24 16:45 Respiratory Culture - Final Presumptive Sheri albicans Complete 11/28/24 16:42 Blood Blood Culture - Preliminary NO GROWTH AFTER 48 HOURS OF INCUBATION. Resulted 11/27/24 10:15 Nose MRSA Screen - Final Complete Labs and/or images reviewed: Labs reviewed by me, Image(s) reviewed by me Problem List/Assessment/Plan Problem List/Assessment/Plan Assessment/plan Neurology Cardiology #Hypertension -currently normal BP # NSTEMI likely type 2 -monitor trops # acute diastolic heart failure -stopped IV Lasix considering possible right-sided heart failure Respiratory # acute hypoxic respiratory failure due to ? Pneumonia overlying interstitial lung disease -currently on high-flow nasal cannula, 50% FiO2 and 60 L #? 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 Marshall Critical care time excluding procedures , 54 min Plan discussed with: Other My Orders My Orders Orders - JACOB LEONE Procedure Category Date Status Time Cardiac DIET 11/30/24 Transmitted Diet-2gna,Lofat,Lochol Dinner Micafungin Sodium PHA 12/01/24 In Process ([place]) 10:00 Covid19 Antigen [place] LAB 11/30/24 Logged Rapid Influenza A&B LAB 11/30/24 Logged 18:06 Creatinine LAB 12/02/24 Verified 05:00 Basic Metabolic Panel LAB 12/02/24 Verified 04:00 Complete Blood Count LAB 12/02/24 Verified 04:00 Magnesium LAB 12/02/24 Verified 04:00 Chest Portable XY 12/02/24 Transmitted 04:00 Abg W/ Co-Ox RT 12/02/24 Transmitted 04:00 Dietary Evaluation Review Comments: Monitor PO intake to reach 75% of her needs. Expected Outcomes/Goals: Gradual weight loss, improved glucose levels and overall medical conditions Date of Service: Dec 01, 2024 Billing Provider: MONICA MARSHALL MD Common Visit Codes: [id number] CARE 30-74 MIN JACOB LEONE Dec 01, 2024 14:19 MONICA MARSHALL MD Dec 04, 2024 12:28
[2024-12-01 22:07] LABS: Rapid Influenza A Negative (Negative); Rapid Influenza B Negative (Negative)
[2024-12-01 22:08] LABS: COVID19 ANTIGEN SOFIA FIA NEGATIVE (NEGATIVE)
[2024-12-02] VITALS (37 sets, daily range): BP systolic 107–171; BP diastolic 64–96; PULSE 83–165; RESP 18–28; TEMP 97–98.8; O2SAT 75–98
[2024-12-02 04:03] LABS: Basophils # (auto) 0 10 ^3/uL (0-0.2); Basophils % (auto) 0.1 % (0.0-2.0); Eosinophils # (auto) 0 10 ^3/uL (0-0.8); Eosinophils % (auto) 0.1 % (0.0-7.0); Hematocrit 33.2 % (36.0-46.0); Hemoglobin 11.4 g/dL (12.2-16.2); Lymphocytes # (auto) 0.9 10 ^3/uL (0.4-5.4); Lymphocytes % (auto) 5.7 % (10.0-50.0); Mean Corpuscular Hemoglobin 30.8 pg (28.0-32.0); Mean Corpuscular Hgb Conc. 34.2 g/dL (32.0-36.0); Mean Corpuscular Volume 90.1 fL (80.0-100.0); Monocytes # (auto) 0.4 10 ^3/uL (0-1.3); Monocytes % (auto) 2.6 % (0.0-12.0); Neutrophils % (auto) 91.5 % (37.0-80.0); Platelet Count (auto) 419 10^3/uL (140-450); Red Blood Cells 3.68 10^6/uL (4.0-5.20); Red Cell Distribution Width 14.3 % (11.8-14.3); White Blood Cell 16.4 10^3/uL (4.4-10.8)
[2024-12-02 04:30] LABS: Potassium 4.2 mmol/L (3.5-5.1)
[2024-12-02 04:31] LABS: Anion Gap 4 (5-15); Carbon Dioxide 31 mmol/L (20-31)
[2024-12-02 04:36] LABS: BUN/Creatinine Ratio 20.5 (10.0-20.0); Blood Urea Nitrogen 15 mg/dL (9-23)
[2024-12-02 04:37] LABS: Magnesium 2.2 mg/dL (1.6-2.6)
[2024-12-02 04:43] LABS: Calcium 8.7 mg/dL (8.7-10.4); Chloride 96 mmol/L (98-107); Glucose 303 mg/dL (74-106); Sodium 131 mmol/L (136-145)
--- NOTE | 2024-12-02 05:40 | DVH ---
CHEST RADIOGRAPH Indication: sob Technique: Single frontal view of the chest was obtained Comparison: XY CHEST PORTABLE on DOS: 11/30/24 FINDINGS: Lines and Tubes: None Lungs: Diffuse bilateral opacities similar to prior study. Pleura: No effusion. No pneumothorax. Cardiomediastinal contours: Cardiomegaly. Bones: No acute osseous abnormality. IMPRESSION: 1. Diffuse bilateral opacities, similar to prior study.
[2024-12-02] MEDS ORDERED: DEXTROSE (50%) 50ML SYRG IV PRN (08:15)
[2024-12-02] MEDS: AZITHROMYCIN 250 MG TAB PO SCH (10:29)
[2024-12-02] MEDS: ACCU-CHEK COMFORT CURVE STRIP VI SCH (12:33)
[2024-12-02] MEDS: InsuLIN REG 1unit/0.01ml Soln (100units/ml) SC SCH (12:38)
[2024-12-02 12:53] LABS: Base Excess 3.6 mmol/L (-2.0-3.0)
--- NOTE | 2024-12-02 18:24 | DVHPNRES ---
Progress Note Date Seen: Dec 02, 2024 Resident Creating Document: JACOB LEONE RESIDENT Medical Necessity Reason Pt with a Central, PICC or Fol: Yes The following are medically ne: Schilling Catheter Reason for schilling catheter: Strict I&O Subjective Review of Systems pt seen and examined at bedside pt seen and examined at bedside. mentions no active complaints. Patient is on high-flow nasal cannula 70% FiO2 and 40 L of oxygen Objective vital signs Vital Sign Date Time Temp Pulse Resp B/P (MAP) Pulse Ox O2 Delivery O2 Flow Rate FiO2 12/02/24 18:18 94 Hi-Flow Heated NC+ 40 60 60 12/02/24 18:17 99 24 12/02/24 14:37 118/77 12/02/24 04:00 98.7 98.7 Total Intake and Output 12/01/24 12/01/24 12/02/24 15:00 23:00 07:00 Intake Total 570 ml 820 ml 590 ml Output Total 500 ml 650 ml Balance 570 ml 320 ml -60 ml medications Current Medications Medications Dose Ordered Sig/Govind Route Start Time Stop Time Status Last Admin Dose Admin Albuterol 2.5 mg Q6HPRN PRN NEB 11/22/24 19:15 12/02/24 18:16 2.5 MG Ondansetron HCl 4 mg Q4HP PRN IV 11/22/24 19:15 Acetaminophen 650 mg Q6HP PRN PO 11/22/24 19:15 12/02/24 16:17 650 MG Ipratropium [place] 0.5 mg Q6HWA NEB 11/25/24 01:00 12/02/24 18:16 0.5 MG Alprazolam 0.5 mg Q8HPRN PRN PO 11/26/24 01:00 12/02/24 09:17 0.5 MG Methylprednisolone Sodium Succinate 40 mg Q8HR IV 11/27/24 22:00 12/02/24 16:16 40 MG Piperacillin Sod/ Tazobactam Sod 100 ml @ 25 mls/hr Q8H IV 11/28/24 16:15 12/02/24 08:46 25 MLS/HR Vancomycin HCl 0 ml @ 0 mls/hr UD IV 11/29/24 09:15 Lidocaine 1 patch DAILY TOP 11/29/24 10:00 12/02/24 10:39 1 PATCH Acetaminophen 650 mg Q6HP PRN PO 11/29/24 09:30 Vancomycin HCl 250 ml @ 250 mls/hr Q15H IV 11/30/24 05:00 12/02/24 02:07 250 MLS/HR Sodium Chloride 1 spr QID EACHNOSTRI 11/30/24 12:00 12/02/24 12:40 1 SPR Micafungin Sodium 100 mg/Sodium Chloride 100 ml @ 100 mls/hr DAILY IV 12/01/24 10:00 12/02/24 16:08 100 MLS/HR Azithromycin 500 mg DAILY PO 12/02/24 10:00 12/02/24 10:29 500 MG Diagnostic Test (Pha) 1 strip Q6HR 12/02/24 12:00 12/02/24 12:33 1 STRIP Insulin Human Regular Q6HR SC 12/02/24 12:00 12/02/24 12:38 8 UNITS Dextrose 50 ml UD PRN IV 12/02/24 08:15 Examination Examination General Appearance: Alert, Oriented X3, Cooperative, mild distress, on high- flow nasal cannula HEENT: EOMI Respiratory: Bilateral coarse crackles Cardiovascular: Regular rate, Normal S1, Normal S2 Abdominal: Normal bowel sounds, soft Extremities: Mild clubbing, No cyanosis, No edema, Normal pulses, No tenderness/swelling Skin: No rashes, No breakdown Neuro: normal Speech, tone laboratory and microbiology Laboratory Tests 12/02/24 03:05 Test 12/02/24 03:05 Range/Units Serum Glucose 303 H 74-106 mg/dL Microbiology Date/Time Source Procedure Growth Status 11/28/24 16:45 Sputum Gram Stain - Final Complete 11/28/24 16:45 Respiratory Culture - Final Presumptive Sheri albicans Complete 11/28/24 16:42 Blood Blood Culture - Preliminary NO GROWTH AFTER 72 HOURS OF INCUBATION. Resulted 11/27/24 10:15 Nose MRSA Screen - Final Complete Labs and/or images reviewed: Labs reviewed by me, Image(s) reviewed by me Problem List/Assessment/Plan Problem List/Assessment/Plan Assessment/plan Neurology Cardiology #Hypertension -currently normal BP # NSTEMI likely type 2 -monitor trops # acute diastolic heart failure -stopped IV Lasix considering possible right-sided heart failure Respiratory # acute hypoxic respiratory failure due to ? Pneumonia overlying interstitial lung disease -currently on high-flow nasal cannula, 50% FiO2 and 60 L #? 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 Obrien Critical care time excluding procedures , 53 min Plan discussed with: Other My Orders My Orders Orders - JACOB LEONE Procedure Category Date Status Time Glucose Blood PHA 12/02/24 In Process (Accu-Chek Comfort 12:00 Insulin R (Human) PHA 12/02/24 In Process (Insulin R) 12:00 Dextrose 50% Syringe PHA 12/02/24 In Process 08:15 Dietary Evaluation Review Comments: Monitor PO intake to reach 75% of her needs. Expected Outcomes/Goals: Gradual weight loss, improved glucose levels and overall medical conditions JACOB LEONE RESIDENT Dec 02, 2024 18:24
[2024-12-03] VITALS (35 sets, daily range): BP systolic 100–163; BP diastolic 64–101; PULSE 73–110; RESP 16–35; TEMP 97.1–98.8; O2SAT 90–97
[2024-12-03 04:06] LABS: Basophils # (auto) 0 10 ^3/uL (0-0.2); Basophils % (auto) 0.1 % (0.0-2.0); Eosinophils # (auto) 0 10 ^3/uL (0-0.8); Eosinophils % (auto) 0.1 % (0.0-7.0); Hematocrit 33.1 % (36.0-46.0); Hemoglobin 11.3 g/dL (12.2-16.2); Lymphocytes # (auto) 1.2 10 ^3/uL (0.4-5.4); Lymphocytes % (auto) 8.5 % (10.0-50.0); Mean Corpuscular Hemoglobin 30.7 pg (28.0-32.0); Mean Corpuscular Hgb Conc. 34.1 g/dL (32.0-36.0); Monocytes # (auto) 0.4 10 ^3/uL (0-1.3); Monocytes % (auto) 2.9 % (0.0-12.0); Neutrophils % (auto) 88.4 % (37.0-80.0); Platelet Count (auto) 371 10^3/uL (140-450); Red Blood Cells 3.67 10^6/uL (4.0-5.20); Red Cell Distribution Width 14.3 % (11.8-14.3); White Blood Cell 14.7 10^3/uL (4.4-10.8)
[2024-12-03 04:14] LABS: Anion Gap 3 (5-15); Calcium 8.9 mg/dL (8.7-10.4); Chloride 99 mmol/L (98-107); Potassium 4.4 mmol/L (3.5-5.1)
[2024-12-03 04:20] LABS: BUN/Creatinine Ratio 20.7 (10.0-20.0); Blood Urea Nitrogen 12 mg/dL (9-23); Magnesium 2.3 mg/dL (1.6-2.6)
[2024-12-03 04:21] LABS: Carbon Dioxide 33 mmol/L (20-31); Glucose 208 mg/dL (74-106); Sodium 135 mmol/L (136-145)
--- NOTE | 2024-12-03 06:17 | DVH ---
CHEST RADIOGRAPH Indication: Hypoxia Technique: Single frontal view of the chest was obtained Comparison: XY CHEST PORTABLE on DOS: 12/02/24, XY CHEST PORTABLE on DOS: 11/30/24, XY CHEST PORTABLE o n DOS: 11/29/24 IMPRESSION: Heart appears stable and prominent in size. Diffuse interstitial prominence likely relates to pulmon elliot fibrosis. No sizable effusion or pneumothorax. No significant interval change.
[2024-12-03 07:56] LABS: Base Excess 7.6 mmol/L (-2.0-3.0)
[2024-12-03] MEDS ORDERED: SODIUM CHLORIDE 0.9% 500 ML IV ONE (10:15)
--- NOTE | 2024-12-03 13:43 | DVHPN2 ---
Subjective Decreasing shortness of breath Reviewed: Care Plan, H&P, Labs, Medications, Previous Orders, Radiology, Other (Consultations) Changes from previous H/P or p: Changes Objective Vitals Vital Signs Date Time Temp Pulse Resp B/P (MAP) Pulse Ox O2 Delivery O2 Flow Rate FiO2 12/03/24 12:00 98.5 106 19 150/92 (111) 92 98.5 12/03/24 12:00 Hi-Flow Heated NC+ 45 55 55 Intake/Output Intake and Output 12/03/24 07:00 Intake Total 1880 ml Output Total 2025 ml Balance -145 ml Intake Oral 1230 ml IV Total 650 ml Output Urine Total 2025 ml General Appearance: Alert, Oriented X3, mild distress HEENT: Atraumatic Lungs: Other (Very limited air entry bilateral; scattered wheezing/crackles) Cardiovascular: Normal S1, Normal S2, Other (Tachycardia) Abdomen: Normal bowel sounds, Soft, No tenderness Genitourinary: Other (Barker's catheter) Neuro: Normal speech, Cranial nerves 3-12 NL Psych/Mental Status: Mental status NL, Mood NL Medications Current Medications Medications Dose Ordered Sig/Govind Route Start Time Stop Time Status Last Admin Dose Admin Albuterol 2.5 mg Q6HPRN PRN NEB 11/22/24 19:15 12/02/24 18:16 2.5 MG Ondansetron HCl 4 mg Q4HP PRN IV 11/22/24 19:15 Acetaminophen 650 mg Q6HP PRN PO 11/22/24 19:15 12/03/24 06:08 650 MG Ipratropium [place] 0.5 mg Q6HWA NEB 11/25/24 01:00 12/03/24 11:42 0.5 MG Alprazolam 0.5 mg Q8HPRN PRN PO 11/26/24 01:00 12/03/24 10:25 0.5 MG Methylprednisolone Sodium Succinate 40 mg Q8HR IV 11/27/24 22:00 12/03/24 13:21 40 MG Piperacillin Sod/ Tazobactam Sod 100 ml @ 25 mls/hr Q8H IV 11/28/24 16:15 12/03/24 08:20 25 MLS/HR Vancomycin HCl 0 ml @ 0 mls/hr UD IV 11/29/24 09:15 Lidocaine 1 patch DAILY TOP 11/29/24 10:00 12/02/24 10:39 1 PATCH Acetaminophen 650 mg Q6HP PRN PO 11/29/24 09:30 Vancomycin HCl 250 ml @ 250 mls/hr Q15H IV 11/30/24 05:00 12/03/24 08:20 250 MLS/HR Sodium Chloride 1 spr QID EACHNOSTRI 11/30/24 12:00 12/03/24 12:15 1 SPR Micafungin Sodium 100 mg/Sodium Chloride 100 ml @ 100 mls/hr DAILY IV 12/01/24 10:00 12/03/24 10:30 100 MLS/HR Azithromycin 500 mg DAILY PO 12/02/24 10:00 12/03/24 10:25 500 MG Diagnostic Test (Pha) 1 strip Q6HR 12/02/24 12:00 12/03/24 12:15 1 STRIP Insulin Human Regular Q6HR SC 12/02/24 12:00 12/03/24 12:19 6 UNITS Dextrose 50 ml UD PRN IV 12/02/24 08:15 Sennosides 8.6 mg BID PO 12/03/24 22:00 Laboratory Results Laboratory Tests 12/03/24 03:17 Chemistry Test 12/03/24 03:17 Calcium Level 8.9 mg/dL (8.7-10.4) Magnesium Level 2.3 mg/dL (1.6-2.6) Urinalysis Test 11/22/24 15:15 11/30/24 10:16 Urine Color Light-yellow (Yellow) Urine Clarity Clear (Clear) Urine pH 5.5 (5.0-9.0) Urine Specific [place] 1.010 (1.001-1.035) Urine Protein Negative (Negative) Urine Ketones Negative (Negative) Urine Blood 1+ /uL (Negative) H Urine Nitrite Negative (Negative) Urine Bilirubin Negative (Negative) Urine Urobilinogen Normal mg/dL (Negative) Urine Leukocyte Esterase Negative /uL (Negative) Urine RBC 2 /hpf (0 - 4) Urine WBC 5 /hpf (0 - 5) Urine Squamous Epithelial Cells Few /hpf (<5) Urine Bacteria Few /hpf (None Seen) H Urine Hyaline Casts Few /lpf (0 - 2) Urine Glucose Normal mg/dL (Normal) Urine Osmolality 624 mOsm/kg Urine Sodium 13 mmol/L (40-220) L Blood Gas Results Test 12/03/24 07:17 Arterial Blood pH 7.474 (7.350-7.450) FiO2 % 60.0 Microbiology Microbiology Date/Time Source Procedure Growth Status 11/28/24 16:45 Sputum Gram Stain - Final Complete 11/28/24 16:45 Respiratory Culture - Final Presumptive Sheri albicans Complete 11/28/24 16:42 Blood Blood Culture - Preliminary NO GROWTH AFTER 72 HOURS OF INCUBATION. Resulted 11/27/24 10:15 Nose MRSA Screen - Final Complete Labs and/or images reviewed: Labs reviewed by me, Image(s) reviewed by me Assessment/Plan Assessment/Plan Covering Dr. Blackman: #Acute hypoxic respiratory failure secondary to mixed fungal and bacterial pneumonia in the setting of pulmonary fibrosis/chronic interstitial lung disease; continue oxygen therapy via high flow nasal cannula; currently on 60% FiO2; continue current medical management with IV antibiotics and IV antifungal along with IV steroids and nebulizers; reviewed ABGs and chest x-rays along with other imaging studies; pulmonology is following; reviewed sputum culture that showed presumptive Sheri albicans; continue close monitoring #Mixed fungal and bacterial pneumonia; details and management as above; continue close monitoring #Sepsis with leukocytosis due to above; details and management as above; continue close monitoring #Pulmonary fibrosis/chronic interstitial lung disease; details and management as above; continue close monitoring #Right lower lung mass/focal consolidation, questionable malignancy; with mediastinal lymphadenopathy; pulmonology is following; will need evaluation by biopsy when clinically stable; continue close monitoring #Pulmonary hypertension, likely group 3; pulmonology is following; continue close monitoring #Elevated D-dimer; PE ruled out; pulmonology is following; continue close monitoring #Hypertensive heart disease with diastolic heart failure; telemetry; add/adjust antihypertensive medications as indicated; to restart IV diuresis as indicated; continue close monitoring #Acute diastolic heart failure; was on IV diuresis; continue close monitoring #NSTEMI; likely type 2 CO; demand ischemia; due to above; continue close monitoring #Uncontrolled diabetes mellitus type 2 with hyperglycemia; hemoglobin A1c of 6.7%; continue insulin sliding scale along with hypoglycemia protocol; adjust according to blood glucose readings; continue close monitoring #Hyponatremia; due to above; asymptomatic; continue close monitoring #Anxiety; continue home medication of Xanax; no suicide ideation/plan; continue close monitoring #On GI and DVT prophylaxis in the setting of acute illness; continue close monitoring Goals of care discussed for 20 minutes; full code. Unstable to transfer to [facility]. 120 minutes of critical care time. Late Entry. This medical document was created using an electronic medical record system with computerized dictation system. Although this document has been carefully reviewed, there might still be some phonetic and typographical errors. These areas are purely typographical due to imperfections of the software programs, and do not reflect any compromise in the patient's medical care. Plan discussed with: Patient, Other (Nurse) My Orders Orders - DELMY DELEON MD Procedure Category Date Status Time Senna Pod Tablet PHA 12/03/24 In Process (Senokot Tablet) 22:00 Date of Service: Dec 03, 2024 Billing Provider: DELMY DELEON MD Common Visit Codes: [id number] CARE 30-74 MIN (120 minutes), [id number] CARE-EACH +30MIN Secondary Visit Codes: [id number] CARE PLAN 30 MINUTES (20 minutes) DELMY DELEON MD Dec 03, 2024 13:43
[2024-12-03] MEDS: LIDOCAINE 5% TOPICAL PATCH TOP SCH (14:30)
[2024-12-03] MEDS: SENNA 8.6 MG TAB PO SCH (22:12)
--- NOTE | 2024-12-03 23:25 | DVHPN2 ---
Progress Note - Dictate Date Seen: Dec 03, 2024 Medical Necessity Reason Pt with a Central, PICC or Fol: Yes The following are medically ne: Schilling Catheter Reason for schilling catheter: Strict I&O Subjective Patient seen and examined at bedside. Remains on supplemental oxygen Overnight events reviewed. vital signs Vital Sign Date Time Temp Pulse Resp B/P (MAP) Pulse Ox O2 Delivery O2 Flow Rate FiO2 12/03/24 22:07 100 23 93 45.0 55 12/03/24 22:00 Hi-Flow Heated NC+ 12/03/24 22:00 155/90 (111) 12/03/24 20:00 98.5 98.5 Total Intake and Output 12/02/24 12/02/24 12/03/24 15:00 23:00 07:00 Intake Total 340 ml 840 ml 700 ml Output Total 1300 ml 725 ml Balance 340 ml -460 ml -25 ml medications Current Medications Medications Dose Ordered Sig/Govind Route Start Time Stop Time Status Last Admin Dose Admin Albuterol 2.5 mg Q6HPRN PRN NEB 11/22/24 19:15 12/03/24 18:43 2.5 MG Ondansetron HCl 4 mg Q4HP PRN IV 11/22/24 19:15 Acetaminophen 650 mg Q6HP PRN PO 11/22/24 19:15 12/03/24 20:37 650 MG Ipratropium [place] 0.5 mg Q6HWA NEB 11/25/24 01:00 12/03/24 18:44 0.5 MG Alprazolam 0.5 mg Q8HPRN PRN PO 11/26/24 01:00 12/03/24 22:12 0.5 MG Methylprednisolone Sodium Succinate 40 mg Q8HR IV 11/27/24 22:00 12/03/24 22:11 40 MG Piperacillin Sod/ Tazobactam Sod 100 ml @ 25 mls/hr Q8H IV 11/28/24 16:15 12/03/24 16:13 25 MLS/HR Vancomycin HCl 0 ml @ 0 mls/hr UD IV 11/29/24 09:15 Acetaminophen 650 mg Q6HP PRN PO 11/29/24 09:30 Vancomycin HCl 250 ml @ 250 mls/hr Q15H IV 11/30/24 05:00 12/03/24 08:20 250 MLS/HR Sodium Chloride 1 spr QID EACHNOSTRI 11/30/24 12:00 12/03/24 22:11 1 SPR Micafungin Sodium 100 mg/Sodium Chloride 100 ml @ 100 mls/hr DAILY IV 12/01/24 10:00 12/03/24 10:30 100 MLS/HR Azithromycin 500 mg DAILY PO 12/02/24 10:00 12/03/24 10:25 500 MG Diagnostic Test (Pha) 1 strip Q6HR 12/02/24 12:00 12/03/24 18:11 1 STRIP Insulin Human Regular Q6HR SC 12/02/24 12:00 12/03/24 18:11 3 UNITS Dextrose 50 ml UD PRN IV 12/02/24 08:15 Sennosides 8.6 mg BID PO 12/03/24 22:00 12/03/24 22:12 8.6 MG Lidocaine 1 patch DAILY TOP 12/03/24 10:00 12/03/24 14:30 1 PATCH objective Gen.: Patient lying in bed in no apparent distress. On supplemental oxygen. Head: Normocephalic, atraumatic. Eyes: EOMI/PERRLA. Ears: Normal hearing. Normal anatomy. Neck/trachea: Trachea midline, supple. Nose: Normal external anatomy. Mouth: Moist mucous membranes. Chest: Decreased air entry bilaterally. No wheezing or rhonchi. Cardiovascular: Positive S1, positive S2. Regular rate and rhythm. Abdomen: Positive bowel sounds in all 4 quadrants. Soft, non-tender, non- distended. : Deferred. Rectal: Deferred. Skin: Warm, dry. Intact. Extremities: 2+ radial pulses bilaterally. No lower extremity edema. Neuro: Awake, alert, oriented x3. No gross motor or sensory deficits. Cranial nerves II through XII intact. Gait not assessed. laboratory and microbiology Laboratory Tests 12/03/24 03:17 Test 12/03/24 03:17 Range/Units Serum Glucose 208 H 74-106 mg/dL Assessment/Plan Impression: Acute hypoxic respiratory failure Dependence on supplemental oxygen Pulmonary fibrosis Lung mass Mediastinal lymphadenopathy Chronic interstitial lung disease Bronchiectasis GGO on imaging Elevated D-dimer. PE ruled out. Events: Remains on high-flow supplemental oxygen Currently flow rate 60 -->45 LPM, FiO2 70 -->55% Improved O2 requirements Continue to taper as tolerated ABG reviewed, alkalemia Chest x-ray reviewed, notable for Diffuse interstitial prominence, likely relates to pulmonary fibrosis. No effusion or pneumothorax. Continue bronchodilators Continue IV steroids - Solu-Medrol 40 mg q.8 hours Continue antibiotics Incentive spirometry Monitor renal function. Monitor electrolytes. Supplement as necessary. Pain control Avoid oversedation Awaiting transfer to [facility] and imaging reviewed. Rest of plan as noted below. Plan: Supplemental oxygen Titrate to keep O2 sats above 92%. Taper O2 as tolerated. Continue bronchodilators. Continue antibiotics Consider CT-guided biopsy if no resolution with antibiotics Monitor renal function. Monitor electrolytes. Supplement as necessary. Monitor ins and outs. GI/DVT prophylaxis. Prognosis: Poor given patient's multiple co-morbidities. Condition: Critical Rest of plan per hospitalist and other consultants. A total of 35 minutes of critical care time was spent reviewing the patient record, examining the patient, making a diagnostic and therapeutic plan, discussing this plan with the medical personnel, following up on diagnostic studies and following the patient for clinical stability excluding any and all procedures. At least 50% of this time was spent in direct, [id number] contact. Thank you, Dr. Patton, for allowing me to participate in this patient's care. Further recommendations will depend on the patient's clinical course. Please do not hesitate to contact me if you have any questions or concerns. This medical document was created using an electronic medical record system with tarpipe dictation system. Although these documentations are being carefully reviewed, there may still be some phonetic and typographical changes. The errors are purely typographical, due to imperfection on the software program, and do not reflect any compromise in the patient's medical care. Dietary Evaluation Review Comments: Monitor PO intake to reach 75% of her needs. Expected Outcomes/Goals: Gradual weight loss, improved glucose levels and overall medical conditions Plan discussed with: Other (WENDY Ramirez) Critical Care Time(min): 35 LYRIC DAVIDSON MD Dec 03, 2024 23:25
[2024-12-04] VITALS (31 sets, daily range): BP systolic 109–179; BP diastolic 67–115; PULSE 61–111; RESP 20–35; TEMP 97.8–98.5; O2SAT 71–97
[2024-12-04 04:00] LABS: Basophils # (auto) 0 10 ^3/uL (0-0.2); Basophils % (auto) 0.1 % (0.0-2.0); Eosinophils # (auto) 0 10 ^3/uL (0-0.8); Eosinophils % (auto) 0.1 % (0.0-7.0); Hematocrit 38.3 % (36.0-46.0); Lymphocytes # (auto) 1.3 10 ^3/uL (0.4-5.4); Lymphocytes % (auto) 7.7 % (10.0-50.0); Mean Corpuscular Hemoglobin 30.4 pg (28.0-32.0); Mean Corpuscular Hgb Conc. 34.1 g/dL (32.0-36.0); Mean Corpuscular Volume 89.1 fL (80.0-100.0); Monocytes # (auto) 0.4 10 ^3/uL (0-1.3); Monocytes % (auto) 2.1 % (0.0-12.0); Platelet Count (auto) 416 10^3/uL (140-450); Red Cell Distribution Width 14.5 % (11.8-14.3); White Blood Cell 16.6 10^3/uL (4.4-10.8)
[2024-12-04 04:14] LABS: Alanine Aminotransferase 14 U/L (7-40); Albumin 3.5 g/dL (3.2-4.8); Alkaline Phosphatase 66 U/L (46-116); Anion Gap 4 (5-15); Aspartate Aminotransferase 14 U/L (13-40); BUN/Creatinine Ratio 18.3 (10.0-20.0); Blood Urea Nitrogen 11 mg/dL (9-23); Calcium 9.2 mg/dL (8.7-10.4); Chloride 99 mmol/L (98-107); Potassium 4.1 mmol/L (3.5-5.1)
[2024-12-04 04:15] LABS: Bilirubin, Total 0.3 mg/dL (0.2-1.0); Total Protein 5.7 g/dL (5.7-8.2)
[2024-12-04 04:17] LABS: Carbon Dioxide 31 mmol/L (20-31); Glucose 203 mg/dL (74-106); Sodium 134 mmol/L (136-145)
[2024-12-04 10:54] LABS: Base Excess 4.7 mmol/L (-2.0-3.0)
[2024-12-04] MEDS: hydrALAZINE HCL 20 MG/ML VL IV PRN (11:06)
[2024-12-04] MEDS: hydrALAZINE HCL 20 MG/ML VL IV ONE (12:00)
--- NOTE | 2024-12-04 14:15 | DVHPN2 ---
Subjective Decreasing shortness of breath but more anxious Reviewed: Care Plan, H&P, Labs, Medications, Previous Orders, Radiology, Other (Consultations) Changes from previous H/P or p: Changes Objective Vitals Vital Signs Date Time Temp Pulse Resp B/P (MAP) Pulse Ox O2 Delivery O2 Flow Rate FiO2 12/04/24 13:00 111 25 165/94 (117) 89 12/04/24 12:00 98.0 98.0 12/04/24 12:00 Hi-Flow Heated NC+ 50 55 55 Intake/Output Intake and Output 12/04/24 07:00 Intake Total 1800 ml Output Total 1975 ml Balance -175 ml Intake Oral 900 ml IV Total 900 ml Output Urine Total 1975 ml General Appearance: Alert, Oriented X3, mild distress HEENT: Atraumatic Lungs: Other (Very limited air entry bilateral; scattered wheezing/crackles) Cardiovascular: Normal S1, Normal S2, Other (Tachycardia) Abdomen: Normal bowel sounds, Soft, No tenderness Genitourinary: Other (Barker's catheter) Neuro: Normal speech, Cranial nerves 3-12 NL Psych/Mental Status: Mental status NL, Mood NL Medications Current Medications Medications Dose Ordered Sig/Govind Route Start Time Stop Time Status Last Admin Dose Admin Albuterol 2.5 mg Q6HPRN PRN NEB 11/22/24 19:15 12/04/24 11:45 2.5 MG Ondansetron HCl 4 mg Q4HP PRN IV 11/22/24 19:15 Acetaminophen 650 mg Q6HP PRN PO 11/22/24 19:15 12/04/24 12:46 650 MG Ipratropium [place] 0.5 mg Q6HWA NEB 11/25/24 01:00 12/04/24 06:46 0.5 MG Methylprednisolone Sodium Succinate 40 mg Q8HR IV 11/27/24 22:00 12/04/24 05:43 40 MG Piperacillin Sod/ Tazobactam Sod 100 ml @ 25 mls/hr Q8H IV 11/28/24 16:15 12/04/24 07:50 25 MLS/HR Vancomycin HCl 0 ml @ 0 mls/hr UD IV 11/29/24 09:15 Acetaminophen 650 mg Q6HP PRN PO 11/29/24 09:30 Vancomycin HCl 250 ml @ 250 mls/hr Q15H IV 11/30/24 05:00 12/03/24 23:24 250 MLS/HR Sodium Chloride 1 spr QID EACHNOSTRI 11/30/24 12:00 12/04/24 12:49 1 SPR Micafungin Sodium 100 mg/Sodium Chloride 100 ml @ 100 mls/hr DAILY IV 12/01/24 10:00 12/04/24 10:17 100 MLS/HR Azithromycin 500 mg DAILY PO 12/02/24 10:00 12/04/24 10:17 500 MG Diagnostic Test (Pha) 1 strip Q6HR 12/02/24 12:00 12/04/24 12:50 1 STRIP Insulin Human Regular Q6HR SC 12/02/24 12:00 12/04/24 12:00 6 UNITS Dextrose 50 ml UD PRN IV 12/02/24 08:15 Sennosides 8.6 mg BID PO 12/03/24 22:00 12/04/24 10:17 8.6 MG Lidocaine 1 patch DAILY TOP 12/03/24 10:00 12/04/24 13:13 1 PATCH Hydralazine HCl 10 mg Q6HP PRN IV 12/04/24 09:45 12/04/24 11:06 10 MG Alprazolam 1 mg Q8HPRN PRN PO 12/04/24 12:00 Laboratory Results Laboratory Tests 12/04/24 03:08 Chemistry Test 12/04/24 03:08 Albumin 3.5 g/dL (3.2-4.8) Calcium Level 9.2 mg/dL (8.7-10.4) Total Protein 5.7 g/dL (5.7-8.2) LFT Test 12/04/24 03:08 Alanine Aminotransferase (ALT) 14 U/L (7-40) Alkaline Phosphatase 66 U/L (46-116) Aspartate Amino Transferase (AST) 14 U/L (13-40) Total Bilirubin 0.3 mg/dL (0.2-1.0) Urinalysis Test 11/22/24 15:15 11/30/24 10:16 Urine Color Light-yellow (Yellow) Urine Clarity Clear (Clear) Urine pH 5.5 (5.0-9.0) Urine Specific [place] 1.010 (1.001-1.035) Urine Protein Negative (Negative) Urine Ketones Negative (Negative) Urine Blood 1+ /uL (Negative) H Urine Nitrite Negative (Negative) Urine Bilirubin Negative (Negative) Urine Urobilinogen Normal mg/dL (Negative) Urine Leukocyte Esterase Negative /uL (Negative) Urine RBC 2 /hpf (0 - 4) Urine WBC 5 /hpf (0 - 5) Urine Squamous Epithelial Cells Few /hpf (<5) Urine Bacteria Few /hpf (None Seen) H Urine Hyaline Casts Few /lpf (0 - 2) Urine Glucose Normal mg/dL (Normal) Urine Osmolality 624 mOsm/kg Urine Sodium 13 mmol/L (40-220) L Blood Gas Results Test 12/04/24 10:47 Arterial Blood pH 7.453 (7.350-7.450) FiO2 % 50.0 Microbiology Microbiology Date/Time Source Procedure Growth Status 11/28/24 16:45 Sputum Gram Stain - Final Complete 11/28/24 16:45 Respiratory Culture - Final Presumptive Sheri albicans Complete 11/28/24 16:42 Blood Blood Culture - Final NO GROWTH AFTER 5 DAYS OF INCUBATION. Complete 11/27/24 10:15 Nose MRSA Screen - Final Complete Labs and/or images reviewed: Labs reviewed by me, Image(s) reviewed by me Assessment/Plan Assessment/Plan Covering Dr. Blackman: #Acute hypoxic respiratory failure secondary to mixed fungal and bacterial pneumonia in the setting of pulmonary fibrosis/chronic interstitial lung disease; continue oxygen therapy via high flow nasal cannula; currently on 50% FiO2 (decreasing oxygen requirements); continue current medical management with IV antibiotics and IV antifungal along with IV steroids and nebulizers; reviewed ABGs and chest x-rays along with other imaging studies; pulmonology is following; reviewed sputum culture that showed presumptive Sheri albicans; continue close monitoring #Mixed fungal and bacterial pneumonia; details and management as above; continue close monitoring #Sepsis with leukocytosis due to above; details and management as above; continue close monitoring #Pulmonary fibrosis/chronic interstitial lung disease; details and management as above; continue close monitoring #Right lower lung mass/focal consolidation, questionable malignancy; with mediastinal lymphadenopathy; pulmonology is following; will need evaluation by biopsy when clinically stable; continue close monitoring #Pulmonary hypertension, likely group 3; pulmonology is following; continue close monitoring #Elevated D-dimer; PE ruled out; pulmonology is following; continue close monitoring #Hypertensive heart disease with diastolic heart failure; telemetry; add/adjust antihypertensive medications as indicated; to restart IV diuresis as indicated; continue close monitoring #Acute diastolic heart failure; was on IV diuresis; continue close monitoring #NSTEMI; likely type 2 OR; demand ischemia; due to above; continue close monitoring #Uncontrolled diabetes mellitus type 2 with hyperglycemia; hemoglobin A1c of 6.7%; continue insulin sliding scale along with hypoglycemia protocol; adjust according to blood glucose readings; continue close monitoring #Hyponatremia; due to above; asymptomatic; continue close monitoring #Anxiety; worsening; increased home medication of Xanax; no suicide ideation/plan; continue close monitoring #On GI and DVT prophylaxis in the setting of acute illness; continue close monitoring Unstable to transfer to [facility]. 66 minutes of critical care time. Late Entry. This medical document was created using an electronic medical record system with computerized dictation system. Although this document has been carefully reviewed, there might still be some phonetic and typographical errors. These areas are purely typographical due to imperfections of the software programs, and do not reflect any compromise in the patient's medical care. Plan discussed with: Patient, Other (Nurse) My Orders Orders - DELMY DELEON MD Procedure Category Date Status Time Hydralazine Injection PHA 12/04/24 In Process (Apresoline Inject 09:45 Alprazolam Tablet PHA 12/04/24 In Process (Xanax Tablet) 12:00 Complete Blood Count LAB 12/05/24 Verified 04:00 Comprehensive LAB 12/05/24 Verified Metabolic Panel 04:00 Chest Xray 1 View XY 12/05/24 Verified 04:00 Abg W/ Co-Ox RT 12/05/24 Verified 06:00 Date of Service: Dec 04, 2024 Billing Provider: DELMY DELEON MD Common Visit Codes: [id number] CARE 30-74 MIN (66 minutes) DELMY DELEON MD Dec 04, 2024 14:14
--- NOTE | 2024-12-04 15:26 | DVH ---
CHEST RADIOGRAPH Indication: CHANGE IN WORK OF BREATHING AND O2 SATS Technique: Single frontal view of the chest was obtained Comparison: XY CHEST PORTABLE on DOS: 12/03/24, XY CHEST PORTABLE on DOS: 12/02/24, XY CHEST PORTABLE o n DOS: 11/30/24 FINDINGS: Lines and Tubes: None Lungs: Prominent interstitial infiltrates bilaterally Pleura: No effusion. No pneumothorax. Cardiomediastinal contours: Cardiomegaly Bones: No acute osseous abnormality. IMPRESSION: 1. Findings may represent congestive failure or pneumonia, or pulmonary fibrosis
[2024-12-04] MEDS: ALPRAZolam 0.5 MG TAB PO PRN (16:04)
--- NOTE | 2024-12-04 22:54 | DVHPN2 ---
Progress Note - Dictate Date Seen: Dec 04, 2024 Medical Necessity Reason Pt with a Central, PICC or Fol: Yes The following are medically ne: Schilling Catheter Reason for schilling catheter: Strict I&O Subjective Patient seen and examined at bedside. Remains on supplemental oxygen Overnight events reviewed. vital signs Vital Sign Date Time Temp Pulse Resp B/P (MAP) Pulse Ox O2 Delivery O2 Flow Rate FiO2 12/04/24 22:00 82 12/04/24 22:00 25 96 Hi-Flow Heated NC+ 50 55 55 12/04/24 21:00 112/73 (86) 12/04/24 20:00 98.2 98.2 Total Intake and Output 12/03/24 12/03/24 12/04/24 15:00 23:00 07:00 Intake Total 450 ml 700 ml 650 ml Output Total 550 ml 1425 ml Balance 450 ml 150 ml -775 ml medications Current Medications Medications Dose Ordered Sig/Govind Route Start Time Stop Time Status Last Admin Dose Admin Albuterol 2.5 mg Q6HPRN PRN NEB 11/22/24 19:15 12/04/24 18:26 2.5 MG Ondansetron HCl 4 mg Q4HP PRN IV 11/22/24 19:15 Acetaminophen 650 mg Q6HP PRN PO 11/22/24 19:15 12/04/24 12:46 650 MG Ipratropium [place] 0.5 mg Q6HWA NEB 11/25/24 01:00 12/04/24 18:27 0.5 MG Methylprednisolone Sodium Succinate 40 mg Q8HR IV 11/27/24 22:00 12/04/24 21:35 40 MG Piperacillin Sod/ Tazobactam Sod 100 ml @ 25 mls/hr Q8H IV 11/28/24 16:15 12/04/24 17:46 25 MLS/HR Vancomycin HCl 0 ml @ 0 mls/hr UD IV 11/29/24 09:15 Acetaminophen 650 mg Q6HP PRN PO 11/29/24 09:30 Sodium Chloride 1 spr QID EACHNOSTRI 11/30/24 12:00 12/04/24 21:35 1 SPR Micafungin Sodium 100 mg/Sodium Chloride 100 ml @ 100 mls/hr DAILY IV 12/01/24 10:00 12/04/24 10:17 100 MLS/HR Azithromycin 500 mg DAILY PO 12/02/24 10:00 12/04/24 10:17 500 MG Diagnostic Test (Pha) 1 strip Q6HR 12/02/24 12:00 12/04/24 18:00 1 STRIP Insulin Human Regular Q6HR SC 12/02/24 12:00 12/04/24 18:00 3 UNITS Dextrose 50 ml UD PRN IV 12/02/24 08:15 Sennosides 8.6 mg BID PO 12/03/24 22:00 12/04/24 21:34 8.6 MG Lidocaine 1 patch DAILY TOP 12/03/24 10:00 12/04/24 13:13 1 PATCH Hydralazine HCl 10 mg Q6HP PRN IV 12/04/24 09:45 12/04/24 11:06 10 MG Alprazolam 1 mg Q8HPRN PRN PO 12/04/24 12:00 12/04/24 16:04 1 MG Vancomycin HCl 250 ml @ 250 mls/hr Q12H IV 12/05/24 02:00 objective Gen.: Patient lying in bed in no apparent distress. On supplemental oxygen. Head: Normocephalic, atraumatic. Eyes: EOMI/PERRLA. Ears: Normal hearing. Normal anatomy. Neck/trachea: Trachea midline, supple. Nose: Normal external anatomy. Mouth: Moist mucous membranes. Chest: Decreased air entry bilaterally. No wheezing or rhonchi. Cardiovascular: Positive S1, positive S2. Regular rate and rhythm. Abdomen: Positive bowel sounds in all 4 quadrants. Soft, non-tender, non- distended. : Deferred. Rectal: Deferred. Skin: Warm, dry. Intact. Extremities: 2+ radial pulses bilaterally. No lower extremity edema. Neuro: Awake, alert, oriented x3. No gross motor or sensory deficits. Cranial nerves II through XII intact. Gait not assessed. laboratory and microbiology Laboratory Tests 12/04/24 03:08 Test 12/04/24 03:08 Range/Units Serum Glucose 203 H 74-106 mg/dL Assessment/Plan Impression: Acute hypoxic respiratory failure Dependence on supplemental oxygen Pulmonary fibrosis Lung mass Mediastinal lymphadenopathy Chronic interstitial lung disease Bronchiectasis GGO on imaging Elevated D-dimer. PE ruled out. Events: Remains on high-flow supplemental oxygen Currently flow rate 45 -->50 LPM, FiO2 55% Continue to taper as tolerated Chest x-ray reviewed, notable for interstitial opacities Xanax 1 mg p.o. q.8 hours for anxiety Continue bronchodilators Continue IV steroids - Solu-Medrol 40 mg q.8 hours Continue antibiotics/antifungals Incentive spirometry Monitor renal function. Monitor electrolytes. Supplement as necessary. Pain control Avoid oversedation Awaiting transfer to [facility] and imaging reviewed. Rest of plan as noted below. Plan: Supplemental oxygen Titrate to keep O2 sats above 92%. Taper O2 as tolerated. Continue bronchodilators. Continue antibiotics Consider CT-guided biopsy if no resolution with antibiotics Monitor renal function. Monitor electrolytes. Supplement as necessary. Monitor ins and outs. GI/DVT prophylaxis. Prognosis: Poor given patient's multiple co-morbidities. Condition: Critical Rest of plan per hospitalist and other consultants. A total of 35 minutes of critical care time was spent reviewing the patient record, examining the patient, making a diagnostic and therapeutic plan, discussing this plan with the medical personnel, following up on diagnostic studies and following the patient for clinical stability excluding any and all procedures. At least 50% of this time was spent in direct, [id number] contact. Thank you, Dr. Patton, for allowing me to participate in this patient's care. Further recommendations will depend on the patient's clinical course. Please do not hesitate to contact me if you have any questions or concerns. This medical document was created using an electronic medical record system with niiu dictation system. Although these documentations are being carefully reviewed, there may still be some phonetic and typographical changes. The errors are purely typographical, due to imperfection on the software program, and do not reflect any compromise in the patient's medical care. Dietary Evaluation Review Comments: Monitor PO intake to reach 75% of her needs. Expected Outcomes/Goals: Gradual weight loss, improved glucose levels and overall medical conditions Plan discussed with: Other (WENDY Fowler) Critical Care Time(min): 35 LYRIC DAVIDSON MD Dec 04, 2024 22:54
[2024-12-05] VITALS (33 sets, daily range): BP systolic 97–160; BP diastolic 57–104; PULSE 61–116; RESP 12–41; TEMP 98–98.5; O2SAT 85–99
[2024-12-05] MEDS: VANCOMYCIN 1GM/250ML KIT 250 ML IV SCH (01:54)
[2024-12-05 03:43] LABS: Basophils # (auto) 0 10 ^3/uL (0-0.2); Basophils % (auto) 0.3 % (0.0-2.0); Eosinophils # (auto) 0 10 ^3/uL (0-0.8); Eosinophils % (auto) 0.1 % (0.0-7.0); Hematocrit 36.6 % (36.0-46.0); Hemoglobin 12.2 g/dL (12.2-16.2); Lymphocytes # (auto) 0.8 10 ^3/uL (0.4-5.4); Lymphocytes % (auto) 6.3 % (10.0-50.0); Mean Corpuscular Hemoglobin 30.1 pg (28.0-32.0); Mean Corpuscular Hgb Conc. 33.3 g/dL (32.0-36.0); Mean Corpuscular Volume 90.6 fL (80.0-100.0); Monocytes # (auto) 0.4 10 ^3/uL (0-1.3); Monocytes % (auto) 2.9 % (0.0-12.0); Neutrophils # (auto) 11.9 10 ^3/uL (1.6-8.6); Neutrophils % (auto) 90.4 % (37.0-80.0); Platelet Count (auto) 376 10^3/uL (140-450); Red Blood Cells 4.04 10^6/uL (4.0-5.20); Red Cell Distribution Width 14.6 % (11.8-14.3); White Blood Cell 13.2 10^3/uL (4.4-10.8)
[2024-12-05 04:10] LABS: Alanine Aminotransferase 13 U/L (7-40); Albumin 3.3 g/dL (3.2-4.8); Alkaline Phosphatase 60 U/L (46-116); Anion Gap 8 (5-15); BUN/Creatinine Ratio 20.7 (10.0-20.0); Blood Urea Nitrogen 12 mg/dL (9-23); Calcium 8.9 mg/dL (8.7-10.4); Carbon Dioxide 30 mmol/L (20-31); Potassium 4.1 mmol/L (3.5-5.1)
[2024-12-05 04:11] LABS: Bilirubin, Total 0.4 mg/dL (0.2-1.0)
[2024-12-05 04:21] LABS: Aspartate Aminotransferase 14 U/L (13-40)
[2024-12-05 04:25] LABS: Chloride 95 mmol/L (98-107); Glucose 234 mg/dL (74-106); Sodium 133 mmol/L (136-145); Total Protein 5.3 g/dL (5.7-8.2)
--- NOTE | 2024-12-05 05:26 | DVH ---
EXAM: XY CHEST XRAY 1 VIEW Indication: Follow up on acute respiratory failure. Technique: Single frontal view of the chest was obtained Comparison: XY CHEST PORTABLE on DOS: 12/04/24, XY CHEST PORTABLE on DOS: 12/03/24, XY CHEST PORTABLE o n DOS: 12/02/24, XY CHEST PORTABLE on DOS: 11/30/24, XY CHEST PORTABLE on DOS: 11/29/24 FINDINGS: Lines and Tubes: None Lungs: Worsening multifocal consolidative opacities. Pleura: No effusion. No pneumothorax. Cardiomediastinal contours: Unchanged. Bones: No acute osseous abnormality. IMPRESSION: Worsening multifocal consolidative opacities.
[2024-12-05 08:42] LABS: Base Excess 5.3 mmol/L (-2.0-3.0)
[2024-12-05] MEDS: FUROSEMIDE 20 MG/2 ML VIAL IV ONE (09:41)
[2024-12-05] MEDS: ENOXAPARIN SOD 40 MG/0.4 ML SYRINGE SC SCH (09:42)
--- NOTE | 2024-12-05 14:20 | DVHPNRES ---
Progress Note Date Seen: Dec 05, 2024 Resident Creating Document: JACOB LEONE RESIDENT Medical Necessity Reason Pt with a Central, PICC or Fol: Yes The following are medically ne: Schilling Catheter Reason for schilling catheter: Strict I&O Subjective Review of Systems pt seen and examined at bedside she is currently on 50% fiO2 and 50L nasal canula she is not mentioning of any new complaints Objective vital signs Vital Sign Date Time Temp Pulse Resp B/P (MAP) Pulse Ox O2 Delivery O2 Flow Rate FiO2 12/05/24 13:00 104 32 132/81 (98) 97 12/05/24 12:00 Hi-Flow Heated NC+ 50 65 65 12/05/24 12:00 98.1 98.1 Total Intake and Output 12/04/24 12/04/24 12/05/24 15:00 23:00 07:00 Intake Total 200 ml 820 ml 800 ml Output Total 2100 ml 700 ml Balance 200 ml -1280 ml 100 ml medications Current Medications Medications Dose Ordered Sig/Govind Route Start Time Stop Time Status Last Admin Dose Admin Albuterol 2.5 mg Q6HPRN PRN NEB 11/22/24 19:15 12/04/24 18:26 2.5 MG Ondansetron HCl 4 mg Q4HP PRN IV 11/22/24 19:15 Acetaminophen 650 mg Q6HP PRN PO 11/22/24 19:15 12/05/24 10:18 650 MG Ipratropium [place] 0.5 mg Q6HWA NEB 11/25/24 01:00 12/05/24 11:44 0.5 MG Methylprednisolone Sodium Succinate 40 mg Q8HR IV 11/27/24 22:00 12/05/24 13:44 40 MG Piperacillin Sod/ Tazobactam Sod 100 ml @ 25 mls/hr Q8H IV 11/28/24 16:15 12/05/24 09:39 25 MLS/HR Vancomycin HCl 0 ml @ 0 mls/hr UD IV 11/29/24 09:15 Sodium Chloride 1 spr QID EACHNOSTRI 11/30/24 12:00 12/05/24 05:32 1 SPR Micafungin Sodium 100 mg/Sodium Chloride 100 ml @ 100 mls/hr DAILY IV 12/01/24 10:00 12/05/24 09:41 100 MLS/HR Azithromycin 500 mg DAILY PO 12/02/24 10:00 12/05/24 09:42 500 MG Diagnostic Test (Pha) 1 strip Q6HR 12/02/24 12:00 12/05/24 05:31 1 STRIP Insulin Human Regular Q6HR SC 12/02/24 12:00 12/05/24 05:32 4 UNITS Dextrose 50 ml UD PRN IV 12/02/24 08:15 Sennosides 8.6 mg BID PO 12/03/24 22:00 12/05/24 09:42 8.6 MG Lidocaine 1 patch DAILY TOP 12/03/24 10:00 12/04/24 13:13 1 PATCH Hydralazine HCl 10 mg Q6HP PRN IV 12/04/24 09:45 12/04/24 11:06 10 MG Alprazolam 1 mg Q8HPRN PRN PO 12/04/24 12:00 12/05/24 10:20 1 MG Vancomycin HCl 250 ml @ 250 mls/hr Q12H IV 12/05/24 02:00 12/05/24 13:42 250 MLS/HR Enoxaparin Sodium 40 mg DAILY SC 12/05/24 10:00 12/05/24 09:42 40 MG Examination Examination General Appearance: Alert, Oriented X3, Cooperative, mild distress, on high- flow nasal cannula HEENT: EOMI Respiratory: Bilateral coarse crackles Cardiovascular: Regular rate, Normal S1, Normal S2 Abdominal: Normal bowel sounds, soft Extremities: Mild clubbing, No cyanosis, No edema, Normal pulses, No tenderness/swelling Skin: No rashes, No breakdown Neuro: normal Speech, tone laboratory and microbiology Laboratory Tests 12/05/24 03:14 Test 12/05/24 03:14 Range/Units Serum Glucose 234 H 74-106 mg/dL Microbiology Date/Time Source Procedure Growth Status 11/28/24 16:45 Sputum Gram Stain - Final Complete 11/28/24 16:45 Respiratory Culture - Final Presumptive Sheri albicans Complete 11/28/24 16:42 Blood Blood Culture - Final NO GROWTH AFTER 5 DAYS OF INCUBATION. Complete 11/27/24 10:15 Nose MRSA Screen - Final Complete Labs and/or images reviewed: Labs reviewed by me, Image(s) reviewed by me Problem List/Assessment/Plan Problem List/Assessment/Plan Assessment/plan Neurology Cardiology #Hypertension -currently normal BP # NSTEMI likely type 2 -monitor trops # acute diastolic heart failure -IV Lasix 20mg once Respiratory # acute hypoxic respiratory failure due to ? Pneumonia overlying interstitial lung disease -currently on high-flow nasal cannula, 50% FiO2 and 50 L -IV lasi 20mg daily #? 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 Marshall Critical care time excluding procedures , 53 min Plan discussed with: Other My Orders My Orders Orders - JACOB LEONE Procedure Category Date Status Time Vancomycin 1gm/250ml PHA 12/05/24 In Process Kit 02:00 Vancomycin,Trough LAB 12/06/24 Verified 13:00 Vancomycin Per SHARDA 12/04/24 In Process Pharmacy Protoc 17:25 Enoxaparin Sodium PHA 12/05/24 In Process (Lovenox) 10:00 Dietary Evaluation Review Comments: Monitor PO intake to reach 75% of her needs. Expected Outcomes/Goals: Gradual weight loss, improved glucose levels and overall medical conditions Date of Service: Dec 05, 2024 Billing Provider: MONICA MARSHALL MD Common Visit Codes: [id number] CARE 30-74 MIN JACOB LEONE Dec 05, 2024 14:20 MONICA MARSHALL MD Dec 06, 2024 14:16
[2024-12-05] MEDS: POLYETHYLENE GLYCOL 17 GM PWDR PO ONE (15:58)
[2024-12-05] MEDS: LACTULOSE 20Gm/30ML SOLN PO ONE (15:59)
[2024-12-05] MEDS: ALPRAZolam 0.5 MG TAB PO PRN (19:51)
[2024-12-05] MEDS: methylPREDNISolone SOD SUCC 125 MG/2 ML VL IV SCH (22:05)
[2024-12-06] VITALS (35 sets, daily range): BP systolic 106–160; BP diastolic 64–94; PULSE 80–110; RESP 20–45; TEMP 97.4–98.4; O2SAT 87–99
[2024-12-06 03:44] LABS: Basophils # (auto) 0.1 10 ^3/uL (0-0.2); Basophils % (auto) 0.4 % (0.0-2.0); Eosinophils # (auto) 0.1 10 ^3/uL (0-0.8); Eosinophils % (auto) 0.5 % (0.0-7.0); Hematocrit 38.6 % (36.0-46.0); Hemoglobin 12.8 g/dL (12.2-16.2); Lymphocytes % (auto) 14.1 % (10.0-50.0); Mean Corpuscular Hemoglobin 29.9 pg (28.0-32.0); Mean Corpuscular Hgb Conc. 33.3 g/dL (32.0-36.0); Mean Corpuscular Volume 89.8 fL (80.0-100.0); Monocytes % (auto) 7.2 % (0.0-12.0); Neutrophils # (auto) 11.2 10 ^3/uL (1.6-8.6); Neutrophils % (auto) 77.8 % (37.0-80.0); Platelet Count (auto) 379 10^3/uL (140-450); Red Blood Cells 4.29 10^6/uL (4.0-5.20); Red Cell Distribution Width 14.9 % (11.8-14.3); White Blood Cell 14.4 10^3/uL (4.4-10.8)
[2024-12-06 04:00] LABS: Anion Gap 7 (5-15); Potassium 3.5 mmol/L (3.5-5.1)
[2024-12-06 04:02] LABS: Calcium 9.3 mg/dL (8.7-10.4)
[2024-12-06 04:06] LABS: BUN/Creatinine Ratio 17.5 (10.0-20.0); Blood Urea Nitrogen 11 mg/dL (9-23)
[2024-12-06 04:07] LABS: Magnesium 2.4 mg/dL (1.6-2.6)
[2024-12-06 04:09] LABS: Carbon Dioxide 32 mmol/L (20-31); Chloride 94 mmol/L (98-107); Glucose 199 mg/dL (74-106); Sodium 133 mmol/L (136-145)
--- NOTE | 2024-12-06 09:03 | DVH ---
EXAM: XY CHEST PORTABLE Indication: worsening cxr Technique: Single frontal view of the chest was obtained Comparison: XY CHEST XRAY 1 VIEW on DOS: 12/05/24, XY CHEST PORTABLE on DOS: 12/04/24, XY CHEST PORTABL E on DOS: 12/03/24, XY CHEST PORTABLE on DOS: 12/02/24, XY CHEST PORTABLE on DOS: 11/30/24 FINDINGS: Lines and Tubes: None Lungs: Unchanged multifocal consolidative opacities. Pleura: No effusion. No pneumothorax. Cardiomediastinal contours: Unchanged. Bones: No acute osseous abnormality. IMPRESSION: No significant change compared to prior exam
[2024-12-06] MEDS: FUROSEMIDE 20 MG/2 ML VIAL IV SCH (09:22)
[2024-12-06] MEDS: POTASSIUM CHL 20MEQ/100ML 100 ML IV ONE (11:53)
[2024-12-06] MEDS: FUROSEMIDE 20 MG/2 ML VIAL IV ONE (11:53)
[2024-12-06] MEDS: LORazepam 2MG/ML-1ML VIAL IV ONE (14:00)
--- NOTE | 2024-12-06 19:00 | DVHPNRES ---
Progress Note Date Seen: Dec 06, 2024 Resident Creating Document: JACOB LEONE RESIDENT Medical Necessity Reason Pt with a Central, PICC or Fol: Yes The following are medically ne: Schilling Catheter Reason for schilling catheter: Strict I&O Subjective Review of Systems pt seen and examined at bedside she is currently on 50% fiO2 and 50L nasal canula she is not mentioning of any new complaints she was started on BiPAP during the daytime, patient became anxious started again on HFNC Objective vital signs Vital Sign Date Time Temp Pulse Resp B/P (MAP) Pulse Ox O2 Delivery O2 Flow Rate FiO2 12/06/24 18:14 95 Nasal Cannula 50.0 12/06/24 18:14 103 30 60 12/06/24 18:00 140/78 (98) 12/06/24 08:00 98.4 98.4 Total Intake and Output 12/05/24 12/05/24 12/06/24 15:00 23:00 07:00 Intake Total 320 ml 930 ml 770 ml Output Total 1500 ml 975 ml Balance 320 ml -570 ml -205 ml medications Current Medications Medications Dose Ordered Sig/Govind Route Start Time Stop Time Status Last Admin Dose Admin Albuterol 2.5 mg Q6HPRN PRN NEB 11/22/24 19:15 12/06/24 18:14 2.5 MG Ondansetron HCl 4 mg Q4HP PRN IV 11/22/24 19:15 Acetaminophen 650 mg Q6HP PRN PO 11/22/24 19:15 12/06/24 18:06 650 MG Ipratropium [place] 0.5 mg Q6HWA NEB 11/25/24 01:00 12/06/24 18:14 0.5 MG Piperacillin Sod/ Tazobactam Sod 100 ml @ 25 mls/hr Q8H IV 11/28/24 16:15 12/06/24 16:15 25 MLS/HR Vancomycin HCl 0 ml @ 0 mls/hr UD IV 11/29/24 09:15 Sodium Chloride 1 spr QID EACHNOSTRI 11/30/24 12:00 12/06/24 17:11 1 SPR Micafungin Sodium 100 mg/Sodium Chloride 100 ml @ 100 mls/hr DAILY IV 12/01/24 10:00 12/06/24 09:22 100 MLS/HR Azithromycin 500 mg DAILY PO 12/02/24 10:00 12/06/24 09:20 500 MG Diagnostic Test (Pha) 1 strip Q6HR 12/02/24 12:00 12/06/24 18:06 1 STRIP Insulin Human Regular Q6HR SC 12/02/24 12:00 12/06/24 18:10 3 UNITS Dextrose 50 ml UD PRN IV 12/02/24 08:15 Sennosides 8.6 mg BID PO 12/03/24 22:00 12/06/24 09:22 8.6 MG Lidocaine 1 patch DAILY TOP 12/03/24 10:00 12/06/24 10:00 1 PATCH Hydralazine HCl 10 mg Q6HP PRN IV 12/04/24 09:45 12/04/24 11:06 10 MG Vancomycin HCl 250 ml @ 250 mls/hr Q12H IV 12/05/24 02:00 12/06/24 14:33 250 MLS/HR Enoxaparin Sodium 40 mg DAILY SC 12/05/24 10:00 12/06/24 09:20 40 MG Alprazolam 1 mg Q6HP PRN PO 12/05/24 15:00 12/06/24 18:06 1 MG Methylprednisolone Sodium Succinate 60 mg Q8HR IV 12/05/24 22:00 12/06/24 14:33 60 MG Furosemide 40 mg DAILY IV 12/07/24 10:00 Examination Examination General Appearance: Alert, Oriented X3, Cooperative, mild distress, on high- flow nasal cannula HEENT: EOMI Respiratory: Bilateral coarse crackles Cardiovascular: Regular rate, Normal S1, Normal S2 Abdominal: Normal bowel sounds, soft Extremities: Mild clubbing, No cyanosis, No edema, Normal pulses, No tenderness/swelling Skin: No rashes, No breakdow laboratory and microbiology Laboratory Tests 12/06/24 03:03 Test 12/06/24 03:03 Range/Units Serum Glucose 199 H 74-106 mg/dL Microbiology Date/Time Source Procedure Growth Status 11/28/24 16:45 Sputum Gram Stain - Final Complete 11/28/24 16:45 Respiratory Culture - Final Presumptive Sheri albicans Complete 11/28/24 16:42 Blood Blood Culture - Final NO GROWTH AFTER 5 DAYS OF INCUBATION. Complete 11/27/24 10:15 Nose MRSA Screen - Final Complete Labs and/or images reviewed: Labs reviewed by me, Image(s) reviewed by me Problem List/Assessment/Plan Problem List/Assessment/Plan Assessment/plan Neurology Cardiology #Hypertension -currently normal BP # NSTEMI likely type 2 -monitor trops # acute diastolic heart failure -IV Lasix 40mg daily Respiratory # acute hypoxic respiratory failure due to ? Pneumonia overlying interstitial lung disease -currently on high-flow nasal cannula, 50% FiO2 and 50 L -IV Lasix 40mg daily #? 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, other causes not ruled out yet, workup ordered -increased methylprednisone to 60mg Q8 # right lower lung mass/focal consolidation, questionable malignancy -patient will need eventually a biopsy # pulmonary hypertension, likely group 3 -seen on echo and CT GI Endocrine Hematology/oncology Nephrology # hyponatremia Workup ordered Monitor Psychiatry # anxiety Resume home Meds, judicious use considering patient is on high-flow nasal cannula Nutrition Cardiac diet DVT prophylaxis Lovenox Code status discussed with the patient for greater than 21 minutes, full code unstable for transfer Case discussed with Dr. Marshall Critical care time excluding procedures , 63 min Plan discussed with: Other My Orders My Orders Orders - JACOB LEONE Procedure Category Date Status Time BIPAP RT 12/06/24 Logged 11:17 Furosemide Injection PHA 12/07/24 In Process (Lasix Injection) 10:00 Complete Blood Count LAB 12/07/24 Verified 04:00 Creatinine LAB 12/07/24 Verified 04:00 Vancomycin,Trough LAB 12/08/24 Verified 13:00 Vancomycin Per SHARDA 12/06/24 In Process Pharmacy Protoc 15:00 Communication Order ORDERS 12/06/24 Transmitted 17:00 Dietary Evaluation Review Comments: Monitor PO intake to reach 75% of her needs. Expected Outcomes/Goals: Gradual weight loss, improved glucose levels and overall medical conditions Date of Service: Dec 06, 2024 Billing Provider: MONICA MARSHALL MD Common Visit Codes: [id number] CARE 30-74 MIN JACOB LEONE Dec 06, 2024 19:00 MONICA MARSHALL MD Dec 07, 2024 15:52
[2024-12-07] VITALS (38 sets, daily range): BP systolic 105–164; BP diastolic 64–89; PULSE 77–118; RESP 17–45; TEMP 97.8–98.5; O2SAT 87–97
[2024-12-07 04:05] LABS: Basophils # (auto) 0 10 ^3/uL (0-0.2); Basophils % (auto) 0.1 % (0.0-2.0); Eosinophils # (auto) 0 10 ^3/uL (0-0.8); Eosinophils % (auto) 0.1 % (0.0-7.0); Hematocrit 41.4 % (36.0-46.0); Hemoglobin 13.6 g/dL (12.2-16.2); Lymphocytes # (auto) 0.7 10 ^3/uL (0.4-5.4); Lymphocytes % (auto) 6.1 % (10.0-50.0); Mean Corpuscular Hemoglobin 30.1 pg (28.0-32.0); Mean Corpuscular Hgb Conc. 32.9 g/dL (32.0-36.0); Mean Corpuscular Volume 91.4 fL (80.0-100.0); Monocytes # (auto) 0.2 10 ^3/uL (0-1.3); Monocytes % (auto) 1.6 % (0.0-12.0); Neutrophils # (auto) 10.5 10 ^3/uL (1.6-8.6); Neutrophils % (auto) 92.1 % (37.0-80.0); Nucleated Red Blood Cells % 0.1 %; Platelet Count (auto) 337 10^3/uL (140-450); Red Blood Cells 4.53 10^6/uL (4.0-5.20); Red Cell Distribution Width 14.8 % (11.8-14.3); White Blood Cell 11.4 10^3/uL (4.4-10.8)
[2024-12-07 04:27] LABS: Alanine Aminotransferase 14 U/L (7-40); Albumin 3.8 g/dL (3.2-4.8); Alkaline Phosphatase 63 U/L (46-116); Anion Gap 8 (5-15); Aspartate Aminotransferase 15 U/L (13-40); BUN/Creatinine Ratio 18.9 (10.0-20.0); Bilirubin, Total 0.5 mg/dL (0.2-1.0); Blood Urea Nitrogen 10 mg/dL (9-23); Calcium 9.6 mg/dL (8.7-10.4); Magnesium 2.4 mg/dL (1.6-2.6); Potassium 3.8 mmol/L (3.5-5.1); Total Protein 6.3 g/dL (5.7-8.2)
[2024-12-07 04:31] LABS: Carbon Dioxide 32 mmol/L (20-31); Chloride 94 mmol/L (98-107); Glucose 153 mg/dL (74-106); Sodium 134 mmol/L (136-145)
--- NOTE | 2024-12-07 05:03 | DVH ---
[facility]: Single frontal view of the chest was obtained Comparison: XY CHEST PORTABLE on DOS: 12/06/24 FINDINGS: Lines and Tubes: None Lungs: Bilateral interstitial and alveolar opacities are unchanged. Pleura: No effusion. No pneumothorax. Cardiomediastinal contours: Cardiomegaly. Bones: No acute osseous abnormality. IMPRESSION: 1. Bilateral interstitial and alveolar opacities are unchanged.
[2024-12-07] MEDS: LORazepam 2MG/ML-1ML VIAL ONE (07:36)
[2024-12-07 07:46] LABS: Base Excess 8.4 mmol/L (-2.0-3.0)
[2024-12-07] MEDS ORDERED: Ensure HIGH Protein Chocolate 8oz Bottle PO SCH (08:00)
[2024-12-07] MEDS: Ensure HIGH Protein Chocolate 8oz Bottle PO SCH (09:15)
[2024-12-07] MEDS: LORazepam 2MG/ML-1ML VIAL IV ONE (09:20)
[2024-12-07] MEDS ORDERED: FUROSEMIDE 40 MG/4 ML VIAL IV SCH (10:00)
[2024-12-07 10:51] LABS: Base Excess 8.3 mmol/L (-2.0-3.0)
[2024-12-07] MEDS: methylPREDNISolone SOD SUCC 125 MG/2 ML VL IV SCH (13:34)
[2024-12-07] MEDS: LORazepam 2MG/ML-1ML VIAL IV PRN (13:53)
[2024-12-07] MEDS: FUROSEMIDE 20 MG TAB PO SCH (17:13)
--- NOTE | 2024-12-07 19:40 | DVHPNRES ---
Progress Note Date Seen: Dec 07, 2024 Resident Creating Document: JACOB LEONE RESIDENT Medical Necessity Reason Pt with a Central, PICC or Fol: Yes The following are medically ne: Schilling Catheter Reason for schilling catheter: Strict I&O Subjective Review of Systems pt seen and examined at bedside she is not mentioning of any new complaints she was started on BiPAP on nasal mask Objective vital signs Vital Sign Date Time Temp Pulse Resp B/P (MAP) Pulse Ox O2 Delivery O2 Flow Rate FiO2 12/07/24 18:00 28 88 Oxymizer 6 N/A 12/07/24 18:00 118 12/07/24 18:00 98.5 164/85 (111) 98.5 Total Intake and Output 12/06/24 12/06/24 12/07/24 15:00 23:00 07:00 Intake Total 120 ml 420 ml 710 ml Output Total 3300 ml 475 ml Balance 120 ml -2880 ml 235 ml medications Current Medications Medications Dose Ordered Sig/Govind Route Start Time Stop Time Status Last Admin Dose Admin Albuterol 2.5 mg Q6HPRN PRN NEB 11/22/24 19:15 12/07/24 17:46 2.5 MG Ondansetron HCl 4 mg Q4HP PRN IV 11/22/24 19:15 Acetaminophen 650 mg Q6HP PRN PO 11/22/24 19:15 12/07/24 17:13 650 MG Ipratropium [place] 0.5 mg Q6HWA NEB 11/25/24 01:00 12/07/24 17:46 0.5 MG Piperacillin Sod/ Tazobactam Sod 100 ml @ 25 mls/hr Q8H IV 11/28/24 16:15 12/07/24 17:05 25 MLS/HR Vancomycin HCl 0 ml @ 0 mls/hr UD IV 11/29/24 09:15 Sodium Chloride 1 spr QID EACHNOSTRI 11/30/24 12:00 12/07/24 18:00 1 SPR Micafungin Sodium 100 mg/Sodium Chloride 100 ml @ 100 mls/hr DAILY IV 12/01/24 10:00 12/07/24 09:20 100 MLS/HR Azithromycin 500 mg DAILY PO 12/02/24 10:00 12/07/24 09:19 500 MG Diagnostic Test (Pha) 1 strip Q6HR 12/02/24 12:00 12/07/24 17:56 1 STRIP Insulin Human Regular Q6HR SC 12/02/24 12:00 12/07/24 17:57 6 UNITS Dextrose 50 ml UD PRN IV 12/02/24 08:15 Sennosides 8.6 mg BID PO 12/03/24 22:00 12/07/24 09:19 8.6 MG Lidocaine 1 patch DAILY TOP 12/03/24 10:00 12/06/24 10:00 1 PATCH Hydralazine HCl 10 mg Q6HP PRN IV 12/04/24 09:45 12/04/24 11:06 10 MG Vancomycin HCl 250 ml @ 250 mls/hr Q12H IV 12/05/24 02:00 12/07/24 13:34 250 MLS/HR Enoxaparin Sodium 40 mg DAILY SC 12/05/24 10:00 12/07/24 09:19 40 MG Methylprednisolone Sodium Succinate 80 mg Q8HR IV 12/07/24 14:00 12/07/24 17:12 80 MG Lorazepam 0.5 mg Q6HP PRN IV 12/07/24 09:00 12/07/24 13:53 0.5 MG Furosemide 20 mg BIDD PO 12/07/24 18:00 12/07/24 17:13 20 MG Enteral Nutritional Formula 240 ml BIDBL PO 12/07/24 09:15 Examination Examination General Appearance: Alert, Oriented X3, Cooperative, mild distress, on high- flow nasal cannula HEENT: EOMI Respiratory: Bilateral coarse crackles Cardiovascular: Regular rate, Normal S1, Normal S2 Abdominal: Normal bowel sounds, soft Extremities: Mild clubbing, No cyanosis, No edema, Normal pulses, No tenderness/swelling Skin: No rashes, No breakdow laboratory and microbiology Laboratory Tests 12/07/24 03:08 Test 12/07/24 03:08 Range/Units Serum Glucose 153 H 74-106 mg/dL Microbiology Date/Time Source Procedure Growth Status 11/28/24 16:45 Sputum Gram Stain - Final Complete 11/28/24 16:45 Respiratory Culture - Final Presumptive Sheri albicans Complete 11/28/24 16:42 Blood Blood Culture - Final NO GROWTH AFTER 5 DAYS OF INCUBATION. Complete 11/27/24 10:15 Nose MRSA Screen - Final Complete Labs and/or images reviewed: Labs reviewed by me Problem List/Assessment/Plan Problem List/Assessment/Plan Assessment/plan Neurology Cardiology #Hypertension -currently normal BP # NSTEMI likely type 2 -monitor trops # acute diastolic heart failure -Lasix 20mg BID oral Respiratory # acute hypoxic respiratory failure due to ? Pneumonia overlying interstitial lung disease -currently on BiPAP -Lasix 20mg BID oral #? 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, other causes not ruled out yet, workup ordered -increased methylprednisone to 80mg Q8 # right lower lung mass/focal consolidation, questionable malignancy -patient will need eventually a biopsy # pulmonary hypertension, likely group 3 -seen on echo and CT GI Endocrine Hematology/oncology Nephrology # hyponatremia Workup ordered Monitor Psychiatry # anxiety Resume home Meds, judicious use considering patient is on currently on BiPAP Nutrition Cardiac diet DVT prophylaxis Lovenox Code status discussed with the patient for greater than 21 minutes, full code [facility] CONSULTED TO TRANSFER TO [facility] for transfer Case discussed with Dr. Marshall Family updated about the condition of the patient. Critical care time excluding procedures , and observation/monitoring for BiPAP :87 min Plan discussed with: Other My Orders My Orders Orders - JACOB LEONE Procedure Category Date Status Time Methylprednisolone PHA 12/07/24 In Process Sod Succ (Solu Medrol 14:00 Lorazepam 2mg/Ml Inj PHA 12/07/24 In Process (Ativan Inj) 09:00 Furosemide Tablet PHA 12/07/24 In Process (Lasix Tablet) 18:00 Nutritional PHA 12/07/24 In Process Supplements (Ensure 09:15 BIPAP RT 12/07/24 Logged 08:45 Abg W/ Co-Ox RT 12/07/24 Logged 10:30 Dietary Evaluation Review Comments: Monitor PO intake to reach 75% of her needs. Expected Outcomes/Goals: Gradual weight loss, improved glucose levels and overall medical conditions Date of Service: Dec 07, 2024 Billing Provider: MONICA MARSHALL MD Common Visit Codes: [id number] CARE 30-74 MIN, [id number] CARE-EACH +30MIN JACOB LEONE RESIDENT Dec 07, 2024 19:40 MONICA MARSHALL MD Dec 08, 2024 12:12
[2024-12-07] MEDS: FUROSEMIDE 20 MG/2 ML VIAL IV ONE (20:23)
[2024-12-08] VITALS (31 sets, daily range): BP systolic 101–174; BP diastolic 73–117; PULSE 89–115; RESP 14–36; TEMP 98–99.3; O2SAT 83–97
[2024-12-08 03:40] LABS: Anion Gap 6 (5-15); Potassium 3.7 mmol/L (3.5-5.1)
[2024-12-08 03:41] LABS: Basophils # (auto) 0.1 10 ^3/uL (0-0.2); Basophils % (auto) 0.5 % (0.0-2.0); Calcium 9.2 mg/dL (8.7-10.4); Eosinophils # (auto) 0 10 ^3/uL (0-0.8); Hematocrit 37.7 % (36.0-46.0); Hemoglobin 12.7 g/dL (12.2-16.2); Lymphocytes # (auto) 1.6 10 ^3/uL (0.4-5.4); Lymphocytes % (auto) 7.7 % (10.0-50.0); Mean Corpuscular Hemoglobin 30.5 pg (28.0-32.0); Mean Corpuscular Hgb Conc. 33.7 g/dL (32.0-36.0); Mean Corpuscular Volume 90.3 fL (80.0-100.0); Monocytes # (auto) 1.5 10 ^3/uL (0-1.3); Monocytes % (auto) 7.5 % (0.0-12.0); Neutrophils # (auto) 16.9 10 ^3/uL (1.6-8.6); Neutrophils % (auto) 84.3 % (37.0-80.0); Platelet Count (auto) 310 10^3/uL (140-450); Red Blood Cells 4.17 10^6/uL (4.0-5.20); Red Cell Distribution Width 14.6 % (11.8-14.3); White Blood Cell 20.1 10^3/uL (4.4-10.8)
[2024-12-08 03:46] LABS: BUN/Creatinine Ratio 20.6 (10.0-20.0); Blood Urea Nitrogen 13 mg/dL (9-23); Magnesium 2.2 mg/dL (1.6-2.6)
[2024-12-08 04:01] LABS: Carbon Dioxide 34 mmol/L (20-31); Chloride 93 mmol/L (98-107); Glucose 178 mg/dL (74-106); Sodium 133 mmol/L (136-145)
[2024-12-08] MEDS: FUROSEMIDE 20 MG/2 ML VIAL IV SCH (05:30)
[2024-12-08 08:40] LABS: Base Excess 10.2 mmol/L (-2.0-3.0)
--- NOTE | 2024-12-08 10:13 | DVH ---
CHEST RADIOGRAPH Indication: sob Technique: Single frontal view of the chest was obtained COMPARISON: XY CHEST PORTABLE on DOS: 12/07/24, XY CHEST PORTABLE on DOS: 12/06/24, XY CHEST XRAY 1 VIE W on DOS: 12/05/24, XY CHEST PORTABLE on DOS: 12/04/24, XY CHEST PORTABLE on DOS: 12/03/24 FINDINGS: Lines and Tubes: None Lungs: Diffuse increased interstitial prominence. Pleura: No effusion. No pneumothorax. Cardiomediastinal contours: Unremarkable Bones: Unremarkable IMPRESSION: Chronic fibrotic changes with possible superimposed mild congestion or viral pneumonia. Findings are not significantly changed.
--- NOTE | 2024-12-08 11:18 | DVHPNRES ---
Progress Note Date Seen: Dec 08, 2024 Resident Creating Document: JACOB LEONE RESIDENT Medical Necessity Reason Pt with a Central, PICC or Fol: Yes The following are medically ne: Schilling Catheter Reason for schilling catheter: Strict I&O Subjective Review of Systems pt seen and examined at bedside Yesterday she was on Oxymizer and Later in the evening had episode of desaturation after which she was started again on BiPAP she is not mentioning of any other complaints Objective vital signs Vital Sign Date Time Temp Pulse Resp B/P (MAP) Pulse Ox O2 Delivery O2 Flow Rate FiO2 12/08/24 11:00 109 25 118/87 (97) 92 12/08/24 10:43 50.0 60 12/08/24 10:00 Hi-Flow Heated NC+ 12/08/24 08:00 98.1 98.1 Total Intake and Output 12/07/24 12/07/24 12/08/24 15:00 23:00 07:00 Intake Total 120 ml 1240 ml 1010 ml Output Total 400 ml 2725 ml Balance 120 ml 840 ml -1715 ml medications Current Medications Medications Dose Ordered Sig/Govind Route Start Time Stop Time Status Last Admin Dose Admin Albuterol 2.5 mg Q6HPRN PRN NEB 11/22/24 19:15 12/07/24 23:34 2.5 MG Ondansetron HCl 4 mg Q4HP PRN IV 11/22/24 19:15 Acetaminophen 650 mg Q6HP PRN PO 11/22/24 19:15 12/08/24 09:17 650 MG Ipratropium [place] 0.5 mg Q6HWA NEB 11/25/24 01:00 12/08/24 06:36 0.5 MG Piperacillin Sod/ Tazobactam Sod 100 ml @ 25 mls/hr Q8H IV 11/28/24 16:15 12/08/24 09:08 25 MLS/HR Vancomycin HCl 0 ml @ 0 mls/hr UD IV 11/29/24 09:15 Sodium Chloride 1 spr QID EACHNOSTRI 11/30/24 12:00 12/08/24 05:30 1 SPR Micafungin Sodium 100 mg/Sodium Chloride 100 ml @ 100 mls/hr DAILY IV 12/01/24 10:00 12/08/24 09:09 100 MLS/HR Azithromycin 500 mg DAILY PO 12/02/24 10:00 12/08/24 09:11 500 MG Diagnostic Test (Pha) 1 strip Q6HR 12/02/24 12:00 12/08/24 05:31 1 STRIP Insulin Human Regular Q6HR SC 12/02/24 12:00 12/08/24 05:40 4 UNITS Dextrose 50 ml UD PRN IV 12/02/24 08:15 Sennosides 8.6 mg BID PO 12/03/24 22:00 12/07/24 21:15 8.6 MG Lidocaine 1 patch DAILY TOP 12/03/24 10:00 12/08/24 09:12 1 PATCH Hydralazine HCl 10 mg Q6HP PRN IV 12/04/24 09:45 12/04/24 11:06 10 MG Vancomycin HCl 250 ml @ 250 mls/hr Q12H IV 12/05/24 02:00 12/08/24 01:52 250 MLS/HR Enoxaparin Sodium 40 mg DAILY SC 12/05/24 10:00 12/08/24 09:11 40 MG Methylprednisolone Sodium Succinate 80 mg Q8HR IV 12/07/24 14:00 12/08/24 05:30 80 MG Lorazepam 0.5 mg Q6HP PRN IV 12/07/24 09:00 12/08/24 10:22 0.5 MG Enteral Nutritional Formula 240 ml BIDBL PO 12/07/24 09:15 12/08/24 08:00 240 ML Furosemide 20 mg BIDD IV 12/08/24 06:00 12/08/24 05:30 20 MG Examination Examination General Appearance: Alert, Oriented X3, Cooperative, mild distress, on high- flow nasal cannula HEENT: EOMI Respiratory: Bilateral coarse crackles Cardiovascular: Regular rate, Normal S1, Normal S2 Abdominal: Normal bowel sounds, soft Extremities: Mild clubbing, No cyanosis, No edema, Normal pulses, No tenderness/swelling Skin: No rashes, No breakdow laboratory and microbiology Laboratory Tests 12/08/24 03:13 Test 12/08/24 03:13 Range/Units Serum Glucose 178 H 74-106 mg/dL Microbiology Date/Time Source Procedure Growth Status 11/28/24 16:45 Sputum Gram Stain - Final Complete 11/28/24 16:45 Respiratory Culture - Final Presumptive Sheri albicans Complete 11/28/24 16:42 Blood Blood Culture - Final NO GROWTH AFTER 5 DAYS OF INCUBATION. Complete 11/27/24 10:15 Nose MRSA Screen - Final Complete Labs and/or images reviewed: Labs reviewed by me, Image(s) reviewed by me Problem List/Assessment/Plan Problem List/Assessment/Plan Assessment/plan Neurology Cardiology #Hypertension -currently normal BP # NSTEMI likely type 2 -monitor trops # acute diastolic heart failure -Lasix 20mg BID IV Respiratory # acute hypoxic respiratory failure due to ? Pneumonia overlying interstitial lung disease -currently on BiPAP -Lasix 20mg BID IV #? 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, other causes not ruled out yet, workup ordered -increased methylprednisone to 80mg Q8 # right lower lung mass/focal consolidation, questionable malignancy -patient will need eventually a biopsy # pulmonary hypertension, likely group 3 -seen on echo and CT GI Endocrine Hematology/oncology Nephrology # hyponatremia Workup ordered Monitor Psychiatry # anxiety Resume home Meds, judicious use considering patient is on currently on BiPAP Infectious Disease #sepsis due to pneumonia -IV antibiotics -panculture Nutrition Cardiac diet DVT prophylaxis Lovenox Code status discussed with the patient for greater than 21 minutes, full code [employer] CONSULTED TO TRANSFER TO [facility] for transfer Case discussed with Dr. Marshall Critical care time excluding procedures: 61 min Plan discussed with: Other My Orders My Orders Orders - JACOB LEONE Procedure Category Date Status Time Furosemide Injection PHA 12/08/24 In Process (Lasix Injection) 06:00 Abg W/ Co-Ox RT 12/08/24 Logged 04:00 Chest Portable XY 12/08/24 Resulted 07:51 Dietary Evaluation Review Comments: Monitor PO intake to reach 75% of her needs. Expected Outcomes/Goals: Gradual weight loss, improved glucose levels and overall medical conditions Date of Service: Dec 08, 2024 Billing Provider: MONICA MARSHALL MD Common Visit Codes: [id number] CARE 30-74 MIN JACOB LEONE RESIDENT Dec 08, 2024 11:18 MONICA MARSHALL MD Dec 11, 2024 15:40
[2024-12-08] MEDS: Glucerna Carbsteady SHAKE Vanilla 8oz PO SCH (17:31)
[2024-12-08] MEDS: LEVALBUTEROL HCL 1.25 MG/3 ML NEB NEB SCH (18:29)
[2024-12-09] VITALS (32 sets, daily range): BP systolic 93–133; BP diastolic 63–98; PULSE 89–116; RESP 17–26; TEMP 97.9–99.3; O2SAT 89–99
[2024-12-09] MEDS: VANCOMYCIN 1GM/250ML KIT 250 ML IV SCH (01:00)
[2024-12-09 04:02] LABS: Basophils # (auto) 0 10 ^3/uL (0-0.2); Basophils % (auto) 0.3 % (0.0-2.0); Eosinophils # (auto) 0 10 ^3/uL (0-0.8); Hemoglobin 12.8 g/dL (12.2-16.2); Lymphocytes # (auto) 0.7 10 ^3/uL (0.4-5.4); Lymphocytes % (auto) 5.2 % (10.0-50.0); Mean Corpuscular Hemoglobin 30.4 pg (28.0-32.0); Mean Corpuscular Hgb Conc. 33.6 g/dL (32.0-36.0); Mean Corpuscular Volume 90.4 fL (80.0-100.0); Monocytes # (auto) 0.5 10 ^3/uL (0-1.3); Monocytes % (auto) 3.8 % (0.0-12.0); Neutrophils # (auto) 12.2 10 ^3/uL (1.6-8.6); Neutrophils % (auto) 90.7 % (37.0-80.0); Nucleated Red Blood Cells % 0.3 %; Platelet Count (auto) 242 10^3/uL (140-450); Red Cell Distribution Width 14.7 % (11.8-14.3); White Blood Cell 13.4 10^3/uL (4.4-10.8)
[2024-12-09 04:18] LABS: Anion Gap 5 (5-15); Calcium 9.4 mg/dL (8.7-10.4)
[2024-12-09 04:23] LABS: BUN/Creatinine Ratio 27.4 (10.0-20.0); Blood Urea Nitrogen 20 mg/dL (9-23)
[2024-12-09 04:24] LABS: Carbon Dioxide 39 mmol/L (20-31); Chloride 90 mmol/L (98-107); Glucose 161 mg/dL (74-106); Magnesium 2.4 mg/dL (1.6-2.6); Sodium 134 mmol/L (136-145)
--- NOTE | 2024-12-09 05:20 | DVH ---
CHEST RADIOGRAPH Indication: [facility] vent Technique: Single frontal view of the chest was obtained Comparison: XY CHEST PORTABLE on DOS: 12/08/24 FINDINGS: Lines and Tubes: None Lungs: Diffuse bilateral interstitial prominence similar to prior exam. No focal consolidation. Pleura: No effusion. No pneumothorax. Cardiomediastinal contours: Unremarkable Bones: No acute osseous abnormality. IMPRESSION: 1. Diffuse bilateral interstitial prominence representing interstitial lung disease or pneumonia. No new consolidation.
[2024-12-09 08:08] LABS: Base Excess 11.2 mmol/L (-2.0-3.0)
--- NOTE | 2024-12-09 13:14 | DVHPNRES ---
Progress Note Date Seen: Dec 09, 2024 Resident Creating Document: JACOB LEONE RESIDENT Medical Necessity Reason Pt with a Central, PICC or Fol: Yes The following are medically ne: Schilling Catheter Reason for schilling catheter: Strict I&O Subjective Review of Systems pt seen and examined at bedside she is not mentioning of any other complaints currently on HFNC Objective vital signs Vital Sign Date Time Temp Pulse Resp B/P (MAP) Pulse Ox O2 Delivery O2 Flow Rate FiO2 12/09/24 10:29 115 20 92 50.0 60 12/09/24 10:00 Hi-Flow Heated NC+ 12/09/24 10:00 104/74 (84) 12/09/24 07:00 99.1 99.1 Total Intake and Output 12/08/24 12/08/24 12/09/24 15:00 23:00 07:00 Intake Total 790 ml 1370 ml 950 ml Output Total 1850 ml 1400 ml Balance 790 ml -480 ml -450 ml medications Current Medications Medications Dose Ordered Sig/Govind Route Start Time Stop Time Status Last Admin Dose Admin Ondansetron HCl 4 mg Q4HP PRN IV 11/22/24 19:15 Acetaminophen 650 mg Q6HP PRN PO 11/22/24 19:15 12/09/24 11:56 650 MG Ipratropium [place] 0.5 mg Q6HWA NEB 11/25/24 01:00 12/09/24 12:31 0.5 MG Piperacillin Sod/ Tazobactam Sod 100 ml @ 25 mls/hr Q8H IV 11/28/24 16:15 12/09/24 09:30 25 MLS/HR Vancomycin HCl 0 ml @ 0 mls/hr UD IV 11/29/24 09:15 Sodium Chloride 1 spr QID EACHNOSTRI 11/30/24 12:00 12/09/24 11:56 1 SPR Micafungin Sodium 100 mg/Sodium Chloride 100 ml @ 100 mls/hr DAILY IV 12/01/24 10:00 12/09/24 09:31 100 MLS/HR Diagnostic Test (Pha) 1 strip Q6HR 12/02/24 12:00 12/09/24 11:56 1 STRIP Insulin Human Regular Q6HR SC 12/02/24 12:00 12/09/24 11:57 3 UNITS Dextrose 50 ml UD PRN IV 12/02/24 08:15 Sennosides 8.6 mg BID PO 12/03/24 22:00 12/07/24 21:15 8.6 MG Lidocaine 1 patch DAILY TOP 12/03/24 10:00 12/09/24 09:31 1 PATCH Hydralazine HCl 10 mg Q6HP PRN IV 12/04/24 09:45 12/04/24 11:06 10 MG Enoxaparin Sodium 40 mg DAILY SC 12/05/24 10:00 12/09/24 09:31 40 MG Methylprednisolone Sodium Succinate 80 mg Q8HR IV 12/07/24 14:00 12/09/24 06:13 80 MG Lorazepam 0.5 mg Q6HP PRN IV 12/07/24 09:00 12/09/24 11:56 0.5 MG Furosemide 20 mg BIDD IV 12/08/24 06:00 12/09/24 06:13 20 MG Vancomycin HCl 250 ml @ 250 mls/hr Q18H IV 12/09/24 01:00 12/09/24 01:00 250 MLS/HR Enteral Nutritional Formula 240 ml TIDWM PO 12/08/24 18:00 12/09/24 11:56 240 ML Levalbuterol HCl 0.625 mg Q6HR NEB 12/08/24 18:29 12/09/24 12:31 0.625 MG Examination Examination General Appearance: Alert, Oriented X3, Cooperative, mild distress, on high- flow nasal cannula HEENT: EOMI Respiratory: Bilateral coarse crackles Cardiovascular: Regular rate, Normal S1, Normal S2 Abdominal: Normal bowel sounds, soft Extremities: Mild clubbing, No cyanosis, No edema, Normal pulses, No tenderness/swelling Skin: No rashes, No breakdown laboratory and microbiology Laboratory Tests 12/09/24 03:19 Test 12/09/24 03:19 Range/Units Serum Glucose 161 H 74-106 mg/dL Microbiology Date/Time Source Procedure Growth Status 12/08/24 21:30 Urine - [place] Urine Culture - Preliminary Resulted 11/28/24 16:45 Sputum Gram Stain - Final Complete 11/28/24 16:45 Respiratory Culture - Final Presumptive Sheri albicans Complete 11/28/24 16:42 Blood Blood Culture - Final NO GROWTH AFTER 5 DAYS OF INCUBATION. Complete 1/19/25 10:15 Nose MRSA Screen - Final Complete Labs and/or images reviewed: Labs reviewed by me, Image(s) reviewed by me Problem List/Assessment/Plan Problem List/Assessment/Plan Assessment/plan Neurology Cardiology #Hypertension -currently normal BP # NSTEMI likely type 2 -monitor trops # acute diastolic heart failure -Lasix 20mg BID IV Respiratory # acute hypoxic respiratory failure due to ? Pneumonia overlying interstitial lung disease -currently on BiPAP -Lasix 20mg BID IV, hold #? 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, other causes not ruled out yet, workup ordered -increased methylprednisone to 80mg Q8 # right lower lung mass/focal consolidation, questionable malignancy -patient will need eventually a biopsy # pulmonary hypertension, likely group 3 -seen on echo and CT GI Endocrine Hematology/oncology Nephrology # hyponatremia Workup ordered Monitor Psychiatry # anxiety Resume home Meds, judicious use considering patient is on currently on BiPAP Infectious Disease #sepsis due to pneumonia -IV antibiotics -panculture Nutrition Cardiac diet DVT prophylaxis Lovenox Code status discussed with the patient for greater than 21 minutes, full code ANESTHESIA DIRECTOR CONSULTED TO TRANSFER TO [facility] for transfer Case discussed with Dr. Talbert Critical care time excluding procedures: 59 min Plan discussed with: Other My Orders My Orders Orders - JACOB LEONE RESIDENT Procedure Category Date Status Time Vancomycin 1gm/250ml PHA 12/09/24 In Process Kit 01:00 Vancomycin,Trough LAB 12/11/24 Verified 06:00 Vancomycin Per SHARDA 12/11/24 In Process Pharmacy Protoc 06:00 Basic Metabolic Panel LAB 12/11/24 Verified 04:00 Basic Metabolic Panel LAB 12/10/24 Verified 04:00 Nutritional PHA 12/08/24 In Process Supplements (Glucerna 18:00 Chest Portable XY 12/09/24 Resulted 04:00 Abg W/ Co-Ox RT 12/09/24 Logged 04:00 Levalbuterol Hcl PHA 12/08/24 In Process (Xopenex Medneb) 18:29 Dietary Evaluation Review Comments: Monitor PO intake to reach 75% of her needs. Expected Outcomes/Goals: Gradual weight loss, improved glucose levels and overall medical conditions Date of Service: Dec 09, 2024 Billing Provider: ALYSSA TALBERT MD Common Visit Codes: [id number] CARE 30-74 MIN JACOB LEONE RESIDENT Dec 09, 2024 13:14 ALYSSA TALBERT MD Dec 11, 2024 19:13
[2024-12-09] MEDS: SODIUM CHLORIDE 0.9% 250 ML IV ONE (13:15)
[2024-12-10] VITALS (35 sets, daily range): BP systolic 95–130; BP diastolic 54–90; PULSE 59–112; RESP 16–50; TEMP 97.7–98.7; O2SAT 88–99
[2024-12-10 03:56] LABS: Basophils # (auto) 0 10 ^3/uL (0-0.2); Basophils % (auto) 0.2 % (0.0-2.0); Eosinophils # (auto) 0 10 ^3/uL (0-0.8); Hematocrit 35.8 % (36.0-46.0); Hemoglobin 12.6 g/dL (12.2-16.2); Lymphocytes # (auto) 0.8 10 ^3/uL (0.4-5.4); Lymphocytes % (auto) 4.5 % (10.0-50.0); Mean Corpuscular Hemoglobin 31.4 pg (28.0-32.0); Mean Corpuscular Hgb Conc. 35.1 g/dL (32.0-36.0); Mean Corpuscular Volume 89.5 fL (80.0-100.0); Monocytes # (auto) 0.8 10 ^3/uL (0-1.3); Monocytes % (auto) 4.5 % (0.0-12.0); Neutrophils % (auto) 90.8 % (37.0-80.0); Platelet Count (auto) 223 10^3/uL (140-450); Red Cell Distribution Width 14.6 % (11.8-14.3); White Blood Cell 18.7 10^3/uL (4.4-10.8)
[2024-12-10 04:17] LABS: Anion Gap 5 (5-15); Potassium 3.9 mmol/L (3.5-5.1)
[2024-12-10 04:18] LABS: Calcium 9.5 mg/dL (8.7-10.4)
[2024-12-10 04:23] LABS: BUN/Creatinine Ratio 23.1 (10.0-20.0); Blood Urea Nitrogen 15 mg/dL (9-23)
[2024-12-10 04:24] LABS: Magnesium 2.4 mg/dL (1.6-2.6)
[2024-12-10 04:25] LABS: Carbon Dioxide 37 mmol/L (20-31); Chloride 89 mmol/L (98-107); Glucose 171 mg/dL (74-106); Sodium 131 mmol/L (136-145)
--- NOTE | 2024-12-10 08:59 | DVHPN2 ---
Subjective 12/10-patient has some anxiety, nurses preparing p.r.n. Ativan. Heart rate in low 100s, oxygen high-flow 8 L to 3% saturating 93%. Patient breathing well. No increased work of breathing. Lungs are right with lower rales left with basilar reveals otherwise good. No signs of volume overload. Reviewed: Care Plan, H&P, Labs, Medications, Previous Orders, Radiology, Other (Consultations) Changes from previous H/P or p: No Changes General: Per HPI Objective Vitals Vital Signs Date Time Temp Pulse Resp B/P (MAP) Pulse Ox O2 Delivery O2 Flow Rate FiO2 12/10/24 07:12 99 27 99 12/10/24 07:09 Hi-Flow Heated NC+ 8 60 60 12/10/24 06:00 125/86 (99) 12/10/24 04:00 98.0 98.0 Intake/Output Intake and Output 12/10/24 07:00 Intake Total 3100 ml Output Total 1775 ml Balance 1325 ml Intake Oral 2900 ml IV Total 200 ml Output Urine Total 1775 ml # Bowel Movements 4 Exam Lungs are right with lower rales left with basilar reveals otherwise good. No signs of volume overload. General Appearance: Alert, Oriented X3, mild distress HEENT: Atraumatic Lungs: Other (Very limited air entry bilateral; scattered wheezing/crackles) Cardiovascular: Normal S1, Normal S2, Other (Tachycardia) Abdomen: Normal bowel sounds, Soft, No tenderness Genitourinary: Other (Barker's catheter) Neuro: Normal speech, Cranial nerves 3-12 NL Psych/Mental Status: Mental status NL, Mood NL Medications Current Medications Medications Dose Ordered Sig/Govind Route Start Time Stop Time Status Last Admin Dose Admin Ondansetron HCl 4 mg Q4HP PRN IV 11/22/24 19:15 Acetaminophen 650 mg Q6HP PRN PO 11/22/24 19:15 12/10/24 01:06 650 MG Ipratropium [place] 0.5 mg Q6HWA NEB 11/25/24 01:00 12/09/24 18:13 0.5 MG Piperacillin Sod/ Tazobactam Sod 100 ml @ 25 mls/hr Q8H IV 11/28/24 16:15 12/10/24 00:12 25 MLS/HR Vancomycin HCl 0 ml @ 0 mls/hr UD IV 11/29/24 09:15 Sodium Chloride 1 spr QID EACHNOSTRI 11/30/24 12:00 12/09/24 17:44 1 SPR Micafungin Sodium 100 mg/Sodium Chloride 100 ml @ 100 mls/hr DAILY IV 12/01/24 10:00 12/09/24 09:31 100 MLS/HR Diagnostic Test (Pha) 1 strip Q6HR 12/02/24 12:00 12/10/24 06:13 1 STRIP Insulin Human Regular Q6HR SC 12/02/24 12:00 12/10/24 06:13 3 UNITS Dextrose 50 ml UD PRN IV 12/02/24 08:15 Sennosides 8.6 mg BID PO 12/03/24 22:00 12/07/24 21:15 8.6 MG Lidocaine 1 patch DAILY TOP 12/03/24 10:00 12/09/24 09:31 1 PATCH Hydralazine HCl 10 mg Q6HP PRN IV 12/04/24 09:45 12/04/24 11:06 10 MG Enoxaparin Sodium 40 mg DAILY SC 12/05/24 10:00 12/09/24 09:31 40 MG Methylprednisolone Sodium Succinate 80 mg Q8HR IV 12/07/24 14:00 12/10/24 06:13 80 MG Lorazepam 0.5 mg Q6HP PRN IV 12/07/24 09:00 12/09/24 21:57 0.5 MG Furosemide 20 mg BIDD IV 12/08/24 06:00 Hold 12/09/24 06:13 20 MG Vancomycin HCl 250 ml @ 250 mls/hr Q18H IV 12/09/24 01:00 12/09/24 18:04 250 MLS/HR Enteral Nutritional Formula 240 ml TIDWM PO 12/08/24 18:00 12/09/24 17:44 240 ML Levalbuterol HCl 0.625 mg Q6HR NEB 12/08/24 18:29 12/10/24 00:05 0.625 MG Laboratory Results Laboratory Tests 12/10/24 03:01 Chemistry Test 12/10/24 03:01 Calcium Level 9.5 mg/dL (8.7-10.4) Magnesium Level 2.4 mg/dL (1.6-2.6) Urinalysis Test 11/22/24 15:15 11/30/24 10:16 Urine Color Light-yellow (Yellow) Urine Clarity Clear (Clear) Urine pH 5.5 (5.0-9.0) Urine Specific [place] 1.010 (1.001-1.035) Urine Protein Negative (Negative) Urine Ketones Negative (Negative) Urine Blood 1+ /uL (Negative) H Urine Nitrite Negative (Negative) Urine Bilirubin Negative (Negative) Urine Urobilinogen Normal mg/dL (Negative) Urine Leukocyte Esterase Negative /uL (Negative) Urine RBC 2 /hpf (0 - 4) Urine WBC 5 /hpf (0 - 5) Urine Squamous Epithelial Cells Few /hpf (<5) Urine Bacteria Few /hpf (None Seen) H Urine Hyaline Casts Few /lpf (0 - 2) Urine Glucose Normal mg/dL (Normal) Urine Osmolality 624 mOsm/kg Urine Sodium 13 mmol/L (40-220) L Microbiology Microbiology Date/Time Source Procedure Growth Status 12/08/24 21:59 Blood Blood Culture - Preliminary NO GROWTH AFTER 24 HOURS OF INCUBATION. Resulted 12/08/24 21:30 Urine - [place] Urine Culture - Preliminary Resulted 11/28/24 16:45 Sputum Gram Stain - Final Complete 11/28/24 16:45 Respiratory Culture - Final Presumptive Sheri albicans Complete 11/27/24 10:15 Nose MRSA Screen - Final Complete Labs and/or images reviewed: Labs reviewed by me, Image(s) reviewed by me Assessment/Plan Assessment/Plan Neurology Cardiology #Hypertension -currently normal BP # NSTEMI likely type 2 -monitor trops # acute diastolic heart failure -Lasix 20mg prn Respiratory # acute hypoxic respiratory failure due to ? Pneumonia overlying interstitial lung disease - bipap hs, hiflo-nc wean to 90-92% -Lasix 20mg iv prn. #? 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, other causes not ruled out yet, workup ordered -increased methylprednisone to 80mg Q8 # right lower lung mass/focal consolidation, questionable malignancy -patient will need eventually a biopsy # pulmonary hypertension, likely group 3 -seen on echo and CT GI Endocrine Hematology/oncology Nephrology # hyponatremia Workup ordered Monitor Psychiatry # anxiety Resume home Meds, judicious use considering patient is on currently on BiPAP Infectious Disease #sepsis due to pneumonia -IV antibiotics -panculture - NGTD Nutrition Cardiac diet DVT prophylaxis Lovenox Code status discussed with the patient for greater than 21 minutes, full code 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
--- NOTE | 2024-12-10 23:38 | DVHPN2 ---
Progress Note - Dictate Date Seen: Dec 10, 2024 Medical Necessity Reason Pt with a Central, PICC or Fol: Yes The following are medically ne: Schilling Catheter Reason for schilling catheter: Strict I&O Subjective Patient seen and examined at bedside. Remains on supplemental oxygen Overnight events reviewed. vital signs Vital Sign Date Time Temp Pulse Resp B/P (MAP) Pulse Ox O2 Delivery O2 Flow Rate FiO2 12/10/24 22:00 22 96 Nasal Cannula* 6 44 12/10/24 22:00 93 12/10/24 22:00 95/68 (77) 12/10/24 20:00 98.6 98.6 Total Intake and Output 12/09/24 12/09/24 12/10/24 15:00 23:00 07:00 Intake Total 1200 ml 1200 ml 700 ml Output Total 1150 ml 625 ml Balance 1200 ml 50 ml 75 ml medications Current Medications Medications Dose Ordered Sig/Govind Route Start Time Stop Time Status Last Admin Dose Admin Ondansetron HCl 4 mg Q4HP PRN IV 11/22/24 19:15 Acetaminophen 650 mg Q6HP PRN PO 11/22/24 19:15 12/10/24 16:55 650 MG Ipratropium [place] 0.5 mg Q6HWA NEB 11/25/24 01:00 12/10/24 17:54 0.5 MG Piperacillin Sod/ Tazobactam Sod 100 ml @ 25 mls/hr Q8H IV 11/28/24 16:15 12/10/24 16:48 25 MLS/HR Vancomycin HCl 0 ml @ 0 mls/hr UD IV 11/29/24 09:15 Sodium Chloride 1 spr QID EACHNOSTRI 11/30/24 12:00 12/10/24 21:47 1 SPR Micafungin Sodium 100 mg/Sodium Chloride 100 ml @ 100 mls/hr DAILY IV 12/01/24 10:00 12/10/24 10:00 100 MLS/HR Diagnostic Test (Pha) 1 strip Q6HR 12/02/24 12:00 12/10/24 17:46 1 STRIP Insulin Human Regular Q6HR SC 12/02/24 12:00 12/10/24 17:48 2 UNITS Dextrose 50 ml UD PRN IV 12/02/24 08:15 Sennosides 8.6 mg BID PO 12/03/24 22:00 12/07/24 21:15 8.6 MG Lidocaine 1 patch DAILY TOP 12/03/24 10:00 12/09/24 09:31 1 PATCH Hydralazine HCl 10 mg Q6HP PRN IV 12/04/24 09:45 12/04/24 11:06 10 MG Enoxaparin Sodium 40 mg DAILY SC 12/05/24 10:00 12/10/24 10:00 40 MG Methylprednisolone Sodium Succinate 80 mg Q8HR IV 12/07/24 14:00 12/10/24 21:54 80 MG Lorazepam 0.5 mg Q6HP PRN IV 12/07/24 09:00 12/10/24 19:36 0.5 MG Furosemide 20 mg BIDD IV 12/08/24 06:00 Hold 12/09/24 06:13 20 MG Vancomycin HCl 250 ml @ 250 mls/hr Q18H IV 12/09/24 01:00 12/10/24 15:42 250 MLS/HR Enteral Nutritional Formula 240 ml TIDWM PO 12/08/24 18:00 12/10/24 17:46 240 ML Levalbuterol HCl 0.625 mg Q6HR NEB 12/08/24 18:29 12/10/24 17:54 0.625 MG objective Gen.: Patient lying in bed in no apparent distress. On supplemental oxygen. Head: Normocephalic, atraumatic. Eyes: EOMI/PERRLA. Ears: Normal hearing. Normal anatomy. Neck/trachea: Trachea midline, supple. Nose: Normal external anatomy. Mouth: Moist mucous membranes. Chest: Decreased air entry bilaterally. No wheezing or rhonchi. Cardiovascular: Positive S1, positive S2. Regular rate and rhythm. Abdomen: Positive bowel sounds in all 4 quadrants. Soft, non-tender, non- distended. : Deferred. Rectal: Deferred. Skin: Warm, dry. Intact. Extremities: 2+ radial pulses bilaterally. No lower extremity edema. Neuro: Awake, alert, oriented x3. No gross motor or sensory deficits. Cranial nerves II through XII intact. Gait not assessed. laboratory and microbiology Laboratory Tests 12/10/24 03:01 Test 12/10/24 03:01 Range/Units Serum Glucose 171 H 74-106 mg/dL Assessment/Plan Impression: Acute hypoxic respiratory failure Dependence on supplemental oxygen Pulmonary fibrosis Lung mass Mediastinal lymphadenopathy Chronic interstitial lung disease Bronchiectasis GGO on imaging Elevated D-dimer. PE ruled out. Events: Remains on supplemental oxygen at 6 LPM NC Taper as tolerated Chest x-ray on 12/09 showed diffuse bilateral interstitial prominence representing interstitial lung disease or pneumonia. Continue bronchodilators Continue IV steroids - Solu-Medrol Continue antibiotics/antifungals Incentive spirometry Monitor renal function. Monitor electrolytes. Supplement as necessary. Pain control Avoid oversedation Accu-Cheks, ISS. Awaiting bed at [facility] Labs and imaging reviewed. Rest of plan as noted below. Plan: Supplemental oxygen Titrate to keep O2 sats above 92%. Taper O2 as tolerated. Continue bronchodilators. Continue antibiotics Consider CT-guided biopsy if no resolution with antibiotics Monitor renal function. Monitor electrolytes. Supplement as necessary. Monitor ins and outs. GI/DVT prophylaxis. Prognosis: Poor given patient's multiple co-morbidities. Condition: Critical Rest of plan per hospitalist and other consultants. A total of 35 minutes of critical care time was spent reviewing the patient record, examining the patient, making a diagnostic and therapeutic plan, discussing this plan with the medical personnel, following up on diagnostic studies and following the patient for clinical stability excluding any and all procedures. At least 50% of this time was spent in direct, [id number] contact. Thank you, Dr. Patton, for allowing me to participate in this patient's care. Further recommendations will depend on the patient's clinical course. Please do not hesitate to contact me if you have any questions or concerns. This medical document was created using an electronic medical record system with [employer] computerized dictation system. Although these documentations are being carefully reviewed, there may still be some phonetic and typographical changes. The errors are purely typographical, due to imperfection on the software program, and do not reflect any compromise in the patient's medical care. Dietary Evaluation Review Comments: Monitor PO intake to reach 75% of her needs. Expected Outcomes/Goals: Gradual weight loss, improved glucose levels and overall medical conditions Plan discussed with: Other (WENDY Sebastian) Critical Care Time(min): 35 LYRIC DAVIDSON MD Dec 10, 2024 23:38
[2024-12-11] VITALS (33 sets, daily range): BP systolic 91–136; BP diastolic 63–96; PULSE 91–113; RESP 16–28; TEMP 97.9–99.2; O2SAT 84–99
[2024-12-11 03:48] LABS: Basophils # (auto) 0.1 10 ^3/uL (0-0.2); Basophils % (auto) 0.5 % (0.0-2.0); Eosinophils # (auto) 0 10 ^3/uL (0-0.8); Hematocrit 35.3 % (36.0-46.0); Hemoglobin 12.1 g/dL (12.2-16.2); Lymphocytes # (auto) 0.7 10 ^3/uL (0.4-5.4); Lymphocytes % (auto) 4.9 % (10.0-50.0); Mean Corpuscular Hemoglobin 30.6 pg (28.0-32.0); Mean Corpuscular Hgb Conc. 34.2 g/dL (32.0-36.0); Mean Corpuscular Volume 89.5 fL (80.0-100.0); Monocytes # (auto) 0.5 10 ^3/uL (0-1.3); Monocytes % (auto) 3.5 % (0.0-12.0); Neutrophils # (auto) 13.6 10 ^3/uL (1.6-8.6); Neutrophils % (auto) 91.1 % (37.0-80.0); Platelet Count (auto) 201 10^3/uL (140-450); Red Blood Cells 3.94 10^6/uL (4.0-5.20); Red Cell Distribution Width 14.8 % (11.8-14.3); White Blood Cell 14.9 10^3/uL (4.4-10.8)
[2024-12-11 03:57] LABS: Potassium 4.1 mmol/L (3.5-5.1)
[2024-12-11 03:58] LABS: Anion Gap 5 (5-15); Calcium 9.3 mg/dL (8.7-10.4)
[2024-12-11 04:03] LABS: BUN/Creatinine Ratio 23.2 (10.0-20.0); Blood Urea Nitrogen 13 mg/dL (9-23)
[2024-12-11 04:21] LABS: Carbon Dioxide 36 mmol/L (20-31); Chloride 89 mmol/L (98-107); Glucose 173 mg/dL (74-106); Sodium 130 mmol/L (136-145)
--- NOTE | 2024-12-11 09:54 | DVHPN2 ---
Subjective update 12/11 12/10-patient has some anxiety, nurses preparing p.r.n. Ativan. Heart rate in low 100s, oxygen high-flow 8 L to 3% saturating 93%. Patient breathing well. No increased work of breathing. Lungs are right with lower rales left with basilar reveals otherwise good. No signs of volume overload. 12/11- doing well. no changes today. anxiety controlled. pending transfer to [place] Reviewed: Care Plan, H&P, Labs, Medications, Previous Orders, Radiology, Other (Consultations) Changes from previous H/P or p: No Changes General: Per HPI Objective Vitals Vital Signs Date Time Temp Pulse Resp B/P (MAP) Pulse Ox O2 Delivery O2 Flow Rate FiO2 12/11/24 08:00 99.2 113 24 106/76 (86) 92 99.2 12/11/24 08:00 Hi-Flow NC 8 55 55 Intake/Output Intake and Output 12/11/24 07:00 Intake Total 3810 ml Output Total 1850 ml Balance 1960 ml Intake Oral 2360 ml IV Total 1450 ml Output Urine Total 1850 ml Exam lungs distant aeration No signs of volume overload. BS present s1 s2 General Appearance: Alert, Oriented X3, mild distress HEENT: Atraumatic Lungs: Other (Very limited air entry bilateral; scattered wheezing/crackles) Cardiovascular: Normal S1, Normal S2, Other (Tachycardia) Abdomen: Normal bowel sounds, Soft, No tenderness Genitourinary: Other (Barker's catheter) Neuro: Normal speech, Cranial nerves 3-12 NL Psych/Mental Status: Mental status NL, Mood NL Medications Current Medications Medications Dose Ordered Sig/Govind Route Start Time Stop Time Status Last Admin Dose Admin Ondansetron HCl 4 mg Q4HP PRN IV 11/22/24 19:15 Acetaminophen 650 mg Q6HP PRN PO 11/22/24 19:15 12/10/24 16:55 650 MG Ipratropium [place] 0.5 mg Q6HWA NEB 11/25/24 01:00 12/11/24 06:18 0.5 MG Piperacillin Sod/ Tazobactam Sod 100 ml @ 25 mls/hr Q8H IV 11/28/24 16:15 12/10/24 23:52 25 MLS/HR Vancomycin HCl 0 ml @ 0 mls/hr UD IV 11/29/24 09:15 Sodium Chloride 1 spr QID EACHNOSTRI 11/30/24 12:00 12/11/24 05:34 1 SPR Micafungin Sodium 100 mg/Sodium Chloride 100 ml @ 100 mls/hr DAILY IV 12/01/24 10:00 12/10/24 10:00 100 MLS/HR Diagnostic Test (Pha) 1 strip Q6HR 12/02/24 12:00 12/11/24 05:34 1 STRIP Insulin Human Regular Q6HR SC 12/02/24 12:00 12/11/24 05:39 2 UNITS Dextrose 50 ml UD PRN IV 12/02/24 08:15 Sennosides 8.6 mg BID PO 12/03/24 22:00 12/07/24 21:15 8.6 MG Lidocaine 1 patch DAILY TOP 12/03/24 10:00 12/09/24 09:31 1 PATCH Hydralazine HCl 10 mg Q6HP PRN IV 12/04/24 09:45 12/04/24 11:06 10 MG Enoxaparin Sodium 40 mg DAILY SC 12/05/24 10:00 12/10/24 10:00 40 MG Methylprednisolone Sodium Succinate 80 mg Q8HR IV 12/07/24 14:00 12/11/24 05:35 80 MG Lorazepam 0.5 mg Q6HP PRN IV 12/07/24 09:00 12/11/24 07:38 0.5 MG Furosemide 20 mg BIDD IV 12/08/24 06:00 Hold 12/09/24 06:13 20 MG Vancomycin HCl 250 ml @ 250 mls/hr Q18H IV 12/09/24 01:00 12/11/24 07:00 250 MLS/HR Enteral Nutritional Formula 240 ml TIDWM PO 12/08/24 18:00 12/10/24 17:46 240 ML Levalbuterol HCl 0.625 mg Q6HR NEB 12/08/24 18:29 12/11/24 06:18 0.625 MG Laboratory Results Laboratory Tests 12/11/24 02:42 Chemistry Test 12/11/24 02:42 Calcium Level 9.3 mg/dL (8.7-10.4) Urinalysis Test 11/22/24 15:15 11/30/24 10:16 Urine Color Light-yellow (Yellow) Urine Clarity Clear (Clear) Urine pH 5.5 (5.0-9.0) Urine Specific [place] 1.010 (1.001-1.035) Urine Protein Negative (Negative) Urine Ketones Negative (Negative) Urine Blood 1+ /uL (Negative) H Urine Nitrite Negative (Negative) Urine Bilirubin Negative (Negative) Urine Urobilinogen Normal mg/dL (Negative) Urine Leukocyte Esterase Negative /uL (Negative) Urine RBC 2 /hpf (0 - 4) Urine WBC 5 /hpf (0 - 5) Urine Squamous Epithelial Cells Few /hpf (<5) Urine Bacteria Few /hpf (None Seen) H Urine Hyaline Casts Few /lpf (0 - 2) Urine Glucose Normal mg/dL (Normal) Urine Osmolality 624 mOsm/kg Urine Sodium 13 mmol/L (40-220) L Microbiology Microbiology Date/Time Source Procedure Growth Status 12/08/24 21:59 Blood Blood Culture - Preliminary NO GROWTH AFTER 48 HOURS OF INCUBATION. Resulted 12/08/24 21:30 Urine - [place] Urine Culture - Preliminary Resulted 11/28/24 16:45 Sputum Gram Stain - Final Complete 11/28/24 16:45 Respiratory Culture - Final Presumptive Sheri albicans Complete 11/27/24 10:15 Nose MRSA Screen - Final Complete Labs and/or images reviewed: Labs reviewed by me, Image(s) reviewed by me Assessment/Plan Assessment/Plan 2/2- doing well. no changes today. anxiety controlled. [pending transfer to [place] Neurology Cardiology #Hypertension -currently normal BP # NSTEMI likely type 2 -monitor trops # acute diastolic heart failure -Lasix 20mg prn Respiratory # acute hypoxic respiratory failure due to ? Pneumonia overlying interstitial lung disease - bipap hs, hiflo-nc wean to 90-92% -Lasix 20mg iv prn. #? 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, other causes not ruled out yet, workup ordered -increased methylprednisone to 80mg Q8 # right lower lung mass/focal consolidation, questionable malignancy -patient will need eventually a biopsy # pulmonary hypertension, likely group 3 -seen on echo and CT GI Endocrine Hematology/oncology Nephrology # hyponatremia Workup ordered Monitor Psychiatry # anxiety Resume home Meds, judicious use considering patient is on currently on BiPAP Infectious Disease #sepsis due to pneumonia -IV antibiotics -panculture - NGTD Nutrition Cardiac diet DVT prophylaxis Lovenox Code status discussed with the patient for greater than 21 minutes, full code 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
--- NOTE | 2024-12-11 22:23 | DVHPN2 ---
Progress Note - Dictate Date Seen: Dec 11, 2024 Medical Necessity Reason Pt with a Central, PICC or Fol: Yes The following are medically ne: Schilling Catheter Reason for schilling catheter: Strict I&O Subjective Patient seen and examined at bedside. Remains on supplemental oxygen Overnight events reviewed. vital signs Vital Sign Date Time Temp Pulse Resp B/P (MAP) Pulse Ox O2 Delivery O2 Flow Rate FiO2 12/11/24 20:00 96 12/11/24 20:00 23 99 Hi-Flow NC 8 60 60 12/11/24 20:00 98.2 91/63 (72) 98.2 Total Intake and Output 12/10/24 12/10/24 12/11/24 15:00 23:00 07:00 Intake Total 320 ml 1840 ml 1650 ml Output Total 850 ml 1000 ml Balance 320 ml 990 ml 650 ml medications Current Medications Medications Dose Ordered Sig/Govind Route Start Time Stop Time Status Last Admin Dose Admin Ondansetron HCl 4 mg Q4HP PRN IV 11/22/24 19:15 Acetaminophen 650 mg Q6HP PRN PO 11/22/24 19:15 12/11/24 12:38 650 MG Ipratropium [place] 0.5 mg Q6HWA NEB 11/25/24 01:00 12/11/24 18:21 0.5 MG Piperacillin Sod/ Tazobactam Sod 100 ml @ 25 mls/hr Q8H IV 11/28/24 16:15 12/11/24 16:57 25 MLS/HR Vancomycin HCl 0 ml @ 0 mls/hr UD IV 11/29/24 09:15 Sodium Chloride 1 spr QID EACHNOSTRI 11/30/24 12:00 12/11/24 21:38 1 SPR Micafungin Sodium 100 mg/Sodium Chloride 100 ml @ 100 mls/hr DAILY IV 12/01/24 10:00 12/11/24 09:51 100 MLS/HR Diagnostic Test (Pha) 1 strip Q6HR 12/02/24 12:00 12/11/24 17:42 1 STRIP Insulin Human Regular Q6HR SC 12/02/24 12:00 12/11/24 17:40 4 UNITS Dextrose 50 ml UD PRN IV 12/02/24 08:15 Sennosides 8.6 mg BID PO 12/03/24 22:00 12/07/24 21:15 8.6 MG Lidocaine 1 patch DAILY TOP 12/03/24 10:00 12/11/24 09:52 1 PATCH Hydralazine HCl 10 mg Q6HP PRN IV 12/04/24 09:45 12/04/24 11:06 10 MG Enoxaparin Sodium 40 mg DAILY SC 12/05/24 10:00 12/11/24 09:51 40 MG Methylprednisolone Sodium Succinate 80 mg Q8HR IV 12/07/24 14:00 12/11/24 21:38 80 MG Lorazepam 0.5 mg Q6HP PRN IV 12/07/24 09:00 12/11/24 17:42 0.5 MG Furosemide 20 mg BIDD IV 12/08/24 06:00 Hold 12/09/24 06:13 20 MG Vancomycin HCl 250 ml @ 250 mls/hr Q18H IV 12/09/24 01:00 12/11/24 07:00 250 MLS/HR Enteral Nutritional Formula 240 ml TIDWM PO 12/08/24 18:00 12/11/24 17:32 240 ML Levalbuterol HCl 0.625 mg Q6HR NEB 12/08/24 18:29 12/11/24 18:21 0.625 MG objective Gen.: Patient lying in bed in no apparent distress. On supplemental oxygen. Head: Normocephalic, atraumatic. Eyes: EOMI/PERRLA. Ears: Normal hearing. Normal anatomy. Neck/trachea: Trachea midline, supple. Nose: Normal external anatomy. Mouth: Moist mucous membranes. Chest: Decreased air entry bilaterally. No wheezing or rhonchi. Cardiovascular: Positive S1, positive S2. Regular rate and rhythm. Abdomen: Positive bowel sounds in all 4 quadrants. Soft, non-tender, non- distended. : Deferred. Rectal: Deferred. Skin: Warm, dry. Intact. Extremities: 2+ radial pulses bilaterally. No lower extremity edema. Neuro: Awake, alert, oriented x3. No gross motor or sensory deficits. Cranial nerves II through XII intact. Gait not assessed. laboratory and microbiology Laboratory Tests 12/11/24 02:42 Test 12/11/24 02:42 Range/Units Serum Glucose 173 H 74-106 mg/dL Assessment/Plan Impression: Acute hypoxic respiratory failure Dependence on supplemental oxygen Pulmonary fibrosis Lung mass Mediastinal lymphadenopathy Chronic interstitial lung disease Bronchiectasis GGO on imaging Elevated D-dimer. PE ruled out. Events: Remains on supplemental oxygen at 8 LPM NC Taper as tolerated Chest x-ray on 12/09 showed diffuse bilateral interstitial prominence representing interstitial lung disease or pneumonia. Continue bronchodilators Continue IV steroids - Solu-Medrol Continue antibiotics/antifungals Incentive spirometry Monitor renal function. Monitor electrolytes. Supplement as necessary. Pain control Avoid oversedation Accu-Cheks, ISS. Awaiting bed at [facility] Labs and imaging reviewed. Rest of plan as noted below. Plan: Supplemental oxygen Titrate to keep O2 sats above 92%. Taper O2 as tolerated. Continue bronchodilators. Continue antibiotics Consider CT-guided biopsy if no resolution with antibiotics Monitor renal function. Monitor electrolytes. Supplement as necessary. Monitor ins and outs. GI/DVT prophylaxis. Prognosis: Poor given patient's multiple co-morbidities. Condition: Critical Rest of plan per hospitalist and other consultants. A total of 35 minutes of critical care time was spent reviewing the patient record, examining the patient, making a diagnostic and therapeutic plan, discussing this plan with the medical personnel, following up on diagnostic studies and following the patient for clinical stability excluding any and all procedures. At least 50% of this time was spent in direct, [id number] contact. Thank you, Dr. Patton, for allowing me to participate in this patient's care. Further recommendations will depend on the patient's clinical course. Please do not hesitate to contact me if you have any questions or concerns. This medical document was created using an electronic medical record system with [employer] dictation system. Although these documentations are being carefully reviewed, there may still be some phonetic and typographical changes. The errors are purely typographical, due to imperfection on the software program, and do not reflect any compromise in the patient's medical care. Dietary Evaluation Review Comments: Monitor PO intake to reach 75% of her needs. Expected Outcomes/Goals: Gradual weight loss, improved glucose levels and overall medical conditions Plan discussed with: Patient, Other (WENDY Martinez) Critical Care Time(min): 35 LYRIC DAVIDSON MD Dec 11, 2024 22:23
[2024-12-12] VITALS (33 sets, daily range): BP systolic 99–138; BP diastolic 68–93; PULSE 87–114; RESP 9–32; TEMP 97.9–98.4; O2SAT 87–99
[2024-12-12 04:14] LABS: Basophils # (auto) 0.1 10 ^3/uL (0-0.2); Basophils % (auto) 0.6 % (0.0-2.0); Eosinophils # (auto) 0 10 ^3/uL (0-0.8); Hematocrit 34.3 % (36.0-46.0); Hemoglobin 11.6 g/dL (12.2-16.2); Lymphocytes # (auto) 0.5 10 ^3/uL (0.4-5.4); Lymphocytes % (auto) 3.7 % (10.0-50.0); Mean Corpuscular Hemoglobin 30.7 pg (28.0-32.0); Mean Corpuscular Hgb Conc. 33.9 g/dL (32.0-36.0); Mean Corpuscular Volume 90.7 fL (80.0-100.0); Monocytes # (auto) 0.4 10 ^3/uL (0-1.3); Monocytes % (auto) 2.9 % (0.0-12.0); Neutrophils # (auto) 13.3 10 ^3/uL (1.6-8.6); Neutrophils % (auto) 92.8 % (37.0-80.0); Platelet Count (auto) 169 10^3/uL (140-450); Red Blood Cells 3.78 10^6/uL (4.0-5.20); White Blood Cell 14.4 10^3/uL (4.4-10.8)
[2024-12-12 07:39] LABS: Potassium 4.3 mmol/L (3.5-5.1)
[2024-12-12 07:40] LABS: Anion Gap 8 (5-15); Calcium 8.7 mg/dL (8.7-10.4)
[2024-12-12 07:45] LABS: Blood Urea Nitrogen 12 mg/dL (9-23); Carbon Dioxide 33 mmol/L (20-31); Chloride 93 mmol/L (98-107); Glucose 209 mg/dL (74-106); Sodium 134 mmol/L (136-145)
--- NOTE | 2024-12-12 08:48 | DVH ---
EXAM: XY CHEST PORTABLE Indication: SOB Technique: Single frontal view of the chest was obtained Comparison: XY CHEST PORTABLE on DOS: 12/09/24, XY CHEST PORTABLE on DOS: 12/08/24, XY CHEST PORTABLE o n DOS: 12/07/24, XY CHEST PORTABLE on DOS: 12/06/24, XY CHEST XRAY 1 VIEW on DOS: 12/05/24 FINDINGS: Lines and Tubes: None Lungs: Diffuse interstitial opacities. Pleura: No effusion. No pneumothorax. Cardiomediastinal contours: Unremarkable Bones: No acute osseous abnormality. IMPRESSION: No significant change compared to prior exam.
[2024-12-12] MEDS: methylPREDNISolone SOD SUCC 125 MG/2 ML VL IV SCH (14:46)
--- NOTE | 2024-12-12 21:33 | DVHPNRES ---
Progress Note Date Seen: Dec 12, 2024 Resident Creating Document: JACOB LEONE RESIDENT Medical Necessity Reason Pt with a Central, PICC or Fol: Yes The following are medically ne: Schilling Catheter Reason for schilling catheter: Strict I&O Subjective Review of Systems pt seen and examined at bedside mentioning of improvement in her symptoms currently on 8L 92 through nasal canula social worker aide consulted to arrange transfer to [facility] Objective vital signs Vital Sign Date Time Temp Pulse Resp B/P (MAP) Pulse Ox O2 Delivery O2 Flow Rate FiO2 12/12/24 20:00 99 18 96 Hi-Flow Heated NC+ 8 60 Oxymizer 60 12/12/24 20:00 98.1 105/77 (86) 98.1 Total Intake and Output 12/11/24 12/11/24 12/12/24 15:00 23:00 07:00 Intake Total 1370 ml 1220 ml 1070 ml Output Total 700 ml 1250 ml Balance 1370 ml 520 ml -180 ml medications Current Medications Medications Dose Ordered Sig/Govind Route Start Time Stop Time Status Last Admin Dose Admin Ondansetron HCl 4 mg Q4HP PRN IV 11/22/24 19:15 Acetaminophen 650 mg Q6HP PRN PO 11/22/24 19:15 12/11/24 12:38 650 MG Ipratropium [place] 0.5 mg Q6HWA NEB 11/25/24 01:00 12/12/24 19:20 0.5 MG Piperacillin Sod/ Tazobactam Sod 100 ml @ 25 mls/hr Q8H IV 11/28/24 16:15 12/12/24 18:35 25 MLS/HR Sodium Chloride 1 spr QID EACHNOSTRI 11/30/24 12:00 12/12/24 18:36 1 SPR Diagnostic Test (Pha) 1 strip Q6HR 12/02/24 12:00 12/12/24 18:00 1 STRIP Insulin Human Regular Q6HR SC 12/02/24 12:00 12/12/24 18:49 4 UNITS Dextrose 50 ml UD PRN IV 12/02/24 08:15 Sennosides 8.6 mg BID PO 12/03/24 22:00 12/07/24 21:15 8.6 MG Lidocaine 1 patch DAILY TOP 12/03/24 10:00 12/11/24 09:52 1 PATCH Hydralazine HCl 10 mg Q6HP PRN IV 12/04/24 09:45 12/04/24 11:06 10 MG Enoxaparin Sodium 40 mg DAILY SC 12/05/24 10:00 12/12/24 10:12 40 MG Lorazepam 0.5 mg Q6HP PRN IV 12/07/24 09:00 12/12/24 15:28 0.5 MG Furosemide 20 mg BIDD IV 12/08/24 06:00 12/12/24 18:37 20 MG Enteral Nutritional Formula 240 ml TIDWM PO 12/08/24 18:00 12/12/24 18:00 240 ML Levalbuterol HCl 0.625 mg Q6HR NEB 12/08/24 18:29 12/12/24 19:20 0.625 MG Methylprednisolone Sodium Succinate 40 mg Q8HR IV 12/12/24 14:00 12/12/24 14:46 40 MG Examination Examination General Appearance: Alert, Oriented X3, Cooperative, mild distress, on 8l through nasal canula HEENT: EOMI Respiratory: Bilateral coarse crackles Cardiovascular: Regular rate, Normal S1, Normal S2 Abdominal: Normal bowel sounds, soft Extremities: Mild clubbing, No cyanosis, No edema, Normal pulses, No tenderness/swelling Skin: No rashes, No breakdown laboratory and microbiology Laboratory Tests 12/12/24 03:20 Test 12/12/24 03:20 Range/Units Serum Glucose 209 H 74-106 mg/dL Microbiology Date/Time Source Procedure Growth Status 12/08/24 21:59 Blood Blood Culture - Preliminary NO GROWTH AFTER 72 HOURS OF INCUBATION. Resulted 12/08/24 21:30 Urine - Schilling Port Urine Culture - Final Complete 11/28/24 16:45 Sputum Gram Stain - Final Complete 11/28/24 16:45 Respiratory Culture - Final Presumptive Sheri albicans Complete 11/27/24 10:15 Nose MRSA Screen - Final Complete Labs and/or images reviewed: Labs reviewed by me, Image(s) reviewed by me Problem List/Assessment/Plan Problem List/Assessment/Plan Assessment/plan Neurology Cardiology #Hypertension -currently normal BP # NSTEMI likely type 2 -monitor trops # acute diastolic heart failure -Lasix 20mg BID IV, on hold Respiratory # acute hypoxic respiratory failure due to ? Pneumonia overlying interstitial lung disease -currently on BiPAP -Lasix 20mg BID IV #? 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, other causes not ruled out yet, workup ordered -decreased methylprednisone to 40mg Q8 # right lower lung mass/focal consolidation, questionable malignancy -patient will need eventually a biopsy # pulmonary hypertension, likely group 3 -seen on echo and CT GI Endocrine Hematology/oncology Nephrology # hyponatremia Workup ordered Monitor Psychiatry # anxiety Resume home Meds, judicious use considering patient is on currently on 8l NC Infectious Disease #sepsis due to pneumonia -IV antibiotics -panculture Nutrition Cardiac diet DVT prophylaxis Lovenox Code status discussed with the patient for greater than 21 minutes, full code CAR JOCKEY CONSULTED TO TRANSFER TO [facility] for transfer Case discussed with Dr. marshall Critical care time excluding procedures: 57 min Plan discussed with: Other My Orders My Orders Orders - JACOB LEONE Procedure Category Date Status Time Chest Portable XY 12/12/24 Resulted 07:02 Methylprednisolone PHA 12/12/24 In Process Sod Succ (Solu Medrol 14:00 Dietary Evaluation Review Comments: Monitor PO intake to reach 75% of her needs. Expected Outcomes/Goals: Gradual weight loss, improved glucose levels and overall medical conditions Date of Service: Dec 13, 2024 Billing Provider: MONICA MARSHALL MD Common Visit Codes: [id number] CARE 30-74 MIN JACOB LEONE Dec 12, 2024 21:32 MONICA MARSHALL MD Dec 13, 2024 14:34
[2024-12-13] VITALS (34 sets, daily range): BP systolic 91–124; BP diastolic 62–88; PULSE 90–115; RESP 19–34; TEMP 97.5–98.4; O2SAT 90–100
[2024-12-13 04:05] LABS: Basophils # (auto) 0 10 ^3/uL (0-0.2); Basophils % (auto) 0.2 % (0.0-2.0); Eosinophils # (auto) 0 10 ^3/uL (0-0.8); Hematocrit 34.9 % (36.0-46.0); Hemoglobin 11.7 g/dL (12.2-16.2); Lymphocytes # (auto) 0.7 10 ^3/uL (0.4-5.4); Lymphocytes % (auto) 4.8 % (10.0-50.0); Mean Corpuscular Hemoglobin 30.6 pg (28.0-32.0); Mean Corpuscular Hgb Conc. 33.7 g/dL (32.0-36.0); Mean Corpuscular Volume 90.9 fL (80.0-100.0); Monocytes # (auto) 0.4 10 ^3/uL (0-1.3); Monocytes % (auto) 2.8 % (0.0-12.0); Neutrophils # (auto) 14.4 10 ^3/uL (1.6-8.6); Neutrophils % (auto) 92.2 % (37.0-80.0); Platelet Count (auto) 167 10^3/uL (140-450); Red Blood Cells 3.84 10^6/uL (4.0-5.20); White Blood Cell 15.6 10^3/uL (4.4-10.8)
[2024-12-13 04:17] LABS: Anion Gap 4 (5-15); Potassium 4.4 mmol/L (3.5-5.1)
[2024-12-13 04:23] LABS: Blood Urea Nitrogen 12 mg/dL (9-23); Magnesium 2.3 mg/dL (1.6-2.6)
[2024-12-13 04:38] LABS: Carbon Dioxide 39 mmol/L (20-31); Chloride 90 mmol/L (98-107); Glucose 214 mg/dL (74-106); Sodium 133 mmol/L (136-145)
--- NOTE | 2024-12-13 18:44 | DVHPNRES ---
Progress Note Date Seen: Dec 13, 2024 Resident Creating Document: JACOB LEONE RESIDENT Medical Necessity Reason Pt with a Central, PICC or Fol: Yes The following are medically ne: Schilling Catheter Reason for schilling catheter: Strict I&O Subjective Review of Systems pt seen and examined at bedside mentions of no new symptoms currently on through nasal canula Objective vital signs Vital Sign Date Time Temp Pulse Resp B/P (MAP) Pulse Ox O2 Delivery O2 Flow Rate FiO2 12/13/24 16:00 19 95 Hi-Flow NC 6 60 60 12/13/24 16:00 98.1 95 111/79 (90) 98.1 Total Intake and Output 12/12/24 12/12/24 12/13/24 15:00 23:00 07:00 Intake Total 580 ml 960 ml 580 ml Output Total 1550 ml 1650 ml Balance 580 ml -590 ml -1070 ml medications Current Medications Medications Dose Ordered Sig/Govind Route Start Time Stop Time Status Last Admin Dose Admin Ondansetron HCl 4 mg Q4HP PRN IV 11/22/24 19:15 Acetaminophen 650 mg Q6HP PRN PO 11/22/24 19:15 12/11/24 12:38 650 MG Ipratropium [place] 0.5 mg Q6HWA NEB 11/25/24 01:00 12/13/24 18:32 0.5 MG Piperacillin Sod/ Tazobactam Sod 100 ml @ 25 mls/hr Q8H IV 11/28/24 16:15 12/13/24 09:20 25 MLS/HR Sodium Chloride 1 spr QID EACHNOSTRI 11/30/24 12:00 12/13/24 05:32 1 SPR Diagnostic Test (Pha) 1 strip Q6HR 12/02/24 12:00 12/13/24 11:16 1 STRIP Insulin Human Regular Q6HR SC 12/02/24 12:00 12/13/24 11:19 6 UNITS Dextrose 50 ml UD PRN IV 12/02/24 08:15 Sennosides 8.6 mg BID PO 12/03/24 22:00 12/07/24 21:15 8.6 MG Lidocaine 1 patch DAILY TOP 12/03/24 10:00 12/13/24 09:21 1 PATCH Hydralazine HCl 10 mg Q6HP PRN IV 12/04/24 09:45 12/04/24 11:06 10 MG Enoxaparin Sodium 40 mg DAILY SC 12/05/24 10:00 12/13/24 09:21 40 MG Lorazepam 0.5 mg Q6HP PRN IV 12/07/24 09:00 12/13/24 03:35 0.5 MG Furosemide 20 mg BIDD IV 12/08/24 06:00 12/13/24 05:32 20 MG Enteral Nutritional Formula 240 ml TIDWM PO 12/08/24 18:00 12/13/24 11:16 240 ML Levalbuterol HCl 0.625 mg Q6HR NEB 12/08/24 18:29 12/13/24 18:32 0.625 MG Methylprednisolone Sodium Succinate 40 mg Q8HR IV 12/12/24 14:00 12/13/24 15:00 40 MG Examination Examination General Appearance: Alert, Oriented X3, Cooperative, mild distress, on 8l through nasal canula HEENT: EOMI Respiratory: Bilateral coarse crackles Cardiovascular: Regular rate, Normal S1, Normal S2 Abdominal: Normal bowel sounds, soft Extremities: Mild clubbing, No cyanosis, No edema, Normal pulses, No tenderness/swelling Skin: No rashes, No breakdown laboratory and microbiology Laboratory Tests 12/13/24 03:19 Test 12/13/24 03:19 Range/Units Serum Glucose 214 H 74-106 mg/dL Microbiology Date/Time Source Procedure Growth Status 12/08/24 21:59 Blood Blood Culture - Preliminary NO GROWTH AFTER 72 HOURS OF INCUBATION. Resulted 12/08/24 21:30 Urine - Schilling Port Urine Culture - Final Complete 11/28/24 16:45 Sputum Gram Stain - Final Complete 11/28/24 16:45 Respiratory Culture - Final Presumptive Sheri albicans Complete 11/27/24 10:15 Nose MRSA Screen - Final Complete Labs and/or images reviewed: Labs reviewed by me, Image(s) reviewed by me Problem List/Assessment/Plan Problem List/Assessment/Plan Assessment/plan Neurology Cardiology #Hypertension -currently normal BP # NSTEMI likely type 2 -monitor trops # acute diastolic heart failure -Lasix 20mg BID IV Respiratory # acute hypoxic respiratory failure due to ? Pneumonia overlying interstitial lung disease -currently on BiPAP -Lasix 20mg BID IV #? 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, other causes not ruled out yet, workup ordered -decreased methylprednisone to 40mg Q8 # right lower lung mass/focal consolidation, questionable malignancy -patient will need eventually a biopsy # pulmonary hypertension, likely group 3 -seen on echo and CT GI Endocrine Hematology/oncology Nephrology # hyponatremia Workup ordered Monitor Psychiatry # anxiety Resume home Meds, judicious use considering patient is on currently on 6l NC Infectious Disease #sepsis due to pneumonia -IV antibiotics -panculture Nutrition Cardiac diet DVT prophylaxis Lovenox Code status discussed with the patient for greater than 21 minutes, full code ALTERNATIVE FINANCING SPECIALIST CONSULTED TO TRANSFER TO [facility] for transfer Case discussed with Dr. marshall Critical care time excluding procedures: 53 min Plan discussed with: Other Dietary Evaluation Review Comments: Monitor PO intake to reach 75% of her needs. Expected Outcomes/Goals: Gradual weight loss, improved glucose levels and overall medical conditions Date of Service: Dec 13, 2024 Billing Provider: MONICA MARSHALL MD Common Visit Codes: [id number] CARE 30-74 MIN JACOB LEONE RESIDENT Dec 13, 2024 18:44 MONICA MARSHALL MD Dec 14, 2024 16:52
[2024-12-14] VITALS (40 sets, daily range): BP systolic 84–115; BP diastolic 54–77; PULSE 94–114; RESP 17–31; TEMP 97.5–98.6; O2SAT 83–100
[2024-12-14 05:16] LABS: Basophils # (auto) 0.1 10 ^3/uL (0-0.2); Basophils % (auto) 0.4 % (0.0-2.0); Eosinophils # (auto) 0 10 ^3/uL (0-0.8); Hemoglobin 12.9 g/dL (12.2-16.2); Lymphocytes # (auto) 1.2 10 ^3/uL (0.4-5.4); Lymphocytes % (auto) 8.7 % (10.0-50.0); Mean Corpuscular Hemoglobin 30.9 pg (28.0-32.0); Mean Corpuscular Hgb Conc. 33.9 g/dL (32.0-36.0); Mean Corpuscular Volume 90.9 fL (80.0-100.0); Monocytes # (auto) 0.7 10 ^3/uL (0-1.3); Monocytes % (auto) 5.1 % (0.0-12.0); Neutrophils # (auto) 11.6 10 ^3/uL (1.6-8.6); Neutrophils % (auto) 85.8 % (37.0-80.0); Platelet Count (auto) 182 10^3/uL (140-450); Red Blood Cells 4.17 10^6/uL (4.0-5.20); Red Cell Distribution Width 14.9 % (11.8-14.3); White Blood Cell 13.6 10^3/uL (4.4-10.8)
[2024-12-14 05:25] LABS: Calcium 9.5 mg/dL (8.7-10.4); Potassium 4.6 mmol/L (3.5-5.1)
[2024-12-14 05:31] LABS: BUN/Creatinine Ratio 19.4 (10.0-20.0); Blood Urea Nitrogen 13 mg/dL (9-23)
[2024-12-14 05:32] LABS: Magnesium 2.3 mg/dL (1.6-2.6)
[2024-12-14 05:51] LABS: Anion Gap 7.99999 (5-15); Carbon Dioxide > 40 mmol/L (20-31); Chloride 83 mmol/L (98-107); Glucose 202 mg/dL (74-106); Sodium 131 mmol/L (136-145)
--- NOTE | 2024-12-14 19:57 | DVHDSRES ---
Discharge Summary Date of Admission Resident Creating Document: JACOB LEONE Nov 22, 2024 at 19:11 Date of Discharge: Dec 09, 2024 Labs/Diagnostic Data: Laboratory Results Test 12/14/24 18:00 12/14/24 04:51 12/11/24 06:19 12/09/24 07:47 POC Glucose 130 mg/dl (70-106) White Blood Count 13.6 10^3/uL (4.4-10.8) Red Blood Count 4.17 10^6/uL (4.0-5.20) Hemoglobin 12.9 g/dL (12.2-16.2) Hematocrit 38.0 % (36.0-46.0) Mean Corpuscular Volume 90.9 fL (80.0-100.0) Mean Corpuscular Hemoglobin 30.9 pg (28.0-32.0) Mean Corpuscular Hemoglobin Concent 33.9 g/dL (32.0-36.0) Red Cell Distribution Width 14.9 % (11.8-14.3) Platelet Count 182 10^3/uL (140-450) Mean Platelet Volume 7.3 fL (6.9-10.8) Neutrophils (%) (Auto) 85.8 % (37.0-80.0) Lymphocytes (%) (Auto) 8.7 % (10.0-50.0) Monocytes (%) (Auto) 5.1 % (0.0-12.0) Eosinophils (%) (Auto) 0.0 % (0.0-7.0) Basophils (%) (Auto) 0.4 % (0.0-2.0) Neutrophils # (Auto) 11.6 10 ^3/uL (1.6-8.6) Lymphocytes # (Auto) 1.2 10 ^3/uL (0.4-5.4) Monocytes # (Auto) 0.7 10 ^3/uL (0-1.3) Eosinophils # (Auto) 0 10 ^3/uL (0-0.8) Basophils # (Auto) 0.1 10 ^3/uL (0-0.2) Nucleated Red Blood Cells 0.0 % Sodium Level 131 mmol/L (136-145) Potassium Level 4.6 mmol/L (3.5-5.1) Chloride Level 83 mmol/L (98-107) Carbon Dioxide Level > 40 mmol/L (20-31) Anion Gap 7.71668 (5-15) Blood Urea Nitrogen 13 mg/dL (9-23) Creatinine 0.67 mg/dL (0.550-1.02) Glomerular Filtration Rate Calc 95 mL/min (>90) BUN/Creatinine Ratio 19.4 (10.0-20.0) Serum Glucose 202 mg/dL (74-106) Calcium Level 9.5 mg/dL (8.7-10.4) Magnesium Level 2.3 mg/dL (1.6-2.6) Vancomycin Level Trough 16.4 ug/mL (5-10) Blood Gas Specimen Type Arterial Blood Gas Sample Site Right radial Blood Gas Patient Temperature 37.0 Arterial Blood Date Drawn [id number] Arterial Blood pH 7.493 (7.350-7.450) Arterial Blood Partial Pressure CO2 47.8 mmHg (32.0-45.0) Arterial Blood Partial Pressure O2 63.6 mmHg (83.0-108.0) Arterial Blood HCO3 35.9 mmol/L (21.0-28.0) Arterial Blood Oxygen Saturation 93.0 % (94.0-98.0) Arterial Blood Base Excess 11.2 mmol/L (-2.0-3.0) Arterial Blood Oxyhemoglobin 92.1 % (94.0-98.0) Arterial Blood Carboxyhemoglobin 0.9 % (0.5-1.5) Arterial Blood Methemoglobin 0.1 % (0.0-1.5) Arthur Test Yes Blood Gas Total Hemoglobin 11.10 g/dL (12.0-16.0) Blood Gas Liter Flow 50.00 Blood Gas Modality High flow FiO2 % 60.0 Test 12/07/24 10:43 12/07/24 03:08 12/01/24 20:50 11/30/24 10:16 Blood Gas Set Respiration Rate 12.0 Blood Gas Spontaneous Rate 26 Blood Gas Spontaneous Tidal Volume 381 Blood Gas EPAP 8 Blood Gas IPAP 14 Blood Gas Comments I-time 0.9 sec. Total Bilirubin 0.5 mg/dL (0.2-1.0) Aspartate Amino Transferase (AST) 15 U/L (13-40) Alanine Aminotransferase (ALT) 14 U/L (7-40) Alkaline Phosphatase 63 U/L (46-116) Total Protein 6.3 g/dL (5.7-8.2) Albumin 3.8 g/dL (3.2-4.8) Influenza Type A Antigen Negative (Negative) Influenza Type B Antigen Negative (Negative) SARS-CoV-2 Antigen (Rapid) Negative (NEGATIVE) Urine Osmolality 624 mOsm/kg Urine Sodium 13 mmol/L (40-220) Test 11/30/24 03:11 11/29/24 09:30 11/28/24 19:59 11/28/24 14:30 Hemoglobin A1c 6.7 % A1C (<5.7) Prothrombin Time 13.5 sec (9.3-11.8) Prothrombin Time INR 1.31 (0.9-1.15) Activated Partial Thromboplast Time 26.8 SEC (24.5-34.5) Erythrocyte Sedimentation Rate 74 mm/hr (0-20) Rheumatoid Factor 12.3 IU/mL (<14.0) Anti-Nuclear Antibody Screen Negative (Negative) Serum Osmolality 270 mOsm/kg (278-298) Test 11/27/24 09:25 11/22/24 19:36 11/22/24 15:15 11/22/24 15:11 Blood Gas Critical Value Read Back Yes Blood Gas Notified Whom Md amita white Blood Gas Notified Time [id number] Blood Gas Notified By Rt faviola kyle D-Dimer, Quantitative 2.60 mg/L FEU (0.0-0.49) Urine Color Light-yellow (Yellow) Urine Clarity Clear (Clear) Urine pH 5.5 (5.0-9.0) Urine Specific [place] 1.010 (1.001-1.035) Urine Protein Negative (Negative) Urine Ketones Negative (Negative) Urine Blood 1+ /uL (Negative) Urine Nitrite Negative (Negative) Urine Bilirubin Negative (Negative) Urine Urobilinogen Normal mg/dL (Negative) Urine Leukocyte Esterase Negative /uL (Negative) Urine RBC 2 /hpf (0 - 4) Urine WBC 5 /hpf (0 - 5) Urine Squamous Epithelial Cells Few /hpf (<5) Urine Bacteria Few /hpf (None Seen) Urine Hyaline Casts Few /lpf (0 - 2) Urine Glucose Normal mg/dL (Normal) Troponin I High Sensitivity 32 ng/L (</=34) Test 11/22/24 11:36 B-Type Natriuretic Peptide 467.95 pg/mL (0-100) Other Laboratory Tests 12/14/24 04:51 Condition at Discharge: Fair Final Diagnosis/Problems List resp failure Discharge Disposition: Acute Care Facility Discharge Instruct/Medications Diet: Cardiac 2g Na,low cholest Activity: No Restrictions, As Tolerated Follow Up/Referral: darell coronado Medications: per jan Discharge Statement: "Patient was advised to return to the ER or call 911 if any headaches, dizziness, shortness of breath, chest pain, abdominal pain, bleeding, fevers, or worsening of medical condition. Patient was counseled about treatment plan, medications, possible side effects, patientverbalized understanding. All questions were answered to the best of my ability. This discharge took greater then 30 minutes in planning, reviewing documentation, counseling the patient, and discussing with other team members." ASSESSMENT ASSESSMENT Assessment resp failure JACOB LEONE RESIDENT Dec 14, 2024 19:57
--- NOTE | 2024-12-14 20:03 | DVHPNRES ---
Progress Note Date Seen: Dec 14, 2024 Resident Creating Document: JACOB LEONE RESIDENT Medical Necessity Reason Pt with a Central, PICC or Fol: Yes The following are medically ne: Schilling Catheter Reason for schilling catheter: Strict I&O Subjective Review of Systems pt seen and examined at bedside mentions of no new symptoms currently on through nasal canula Objective vital signs Vital Sign Date Time Temp Pulse Resp B/P (MAP) Pulse Ox O2 Delivery O2 Flow Rate FiO2 12/14/24 19:00 103 22 111/73 (86) 95 12/14/24 18:46 Hi-Flow NC 6 50 50 12/14/24 16:00 98.0 98.0 Total Intake and Output 12/13/24 12/13/24 12/14/24 15:00 23:00 07:00 Intake Total 700 ml 575 ml 400 ml Output Total 1800 ml 1200 ml Balance 700 ml -1225 ml -800 ml medications Current Medications Medications Dose Ordered Sig/Govind Route Start Time Stop Time Status Last Admin Dose Admin Ondansetron HCl 4 mg Q4HP PRN IV 11/22/24 19:15 Acetaminophen 650 mg Q6HP PRN PO 11/22/24 19:15 12/14/24 10:40 650 MG Ipratropium [place] 0.5 mg Q6HWA NEB 11/25/24 01:00 12/14/24 18:46 0.5 MG Piperacillin Sod/ Tazobactam Sod 100 ml @ 25 mls/hr Q8H IV 11/28/24 16:15 12/14/24 16:16 25 MLS/HR Sodium Chloride 1 spr QID EACHNOSTRI 11/30/24 12:00 12/14/24 18:32 1 SPR Diagnostic Test (Pha) 1 strip Q6HR 12/02/24 12:00 12/14/24 18:26 1 STRIP Insulin Human Regular Q6HR SC 12/02/24 12:00 12/14/24 11:56 8 UNITS Dextrose 50 ml UD PRN IV 12/02/24 08:15 Sennosides 8.6 mg BID PO 12/03/24 22:00 12/07/24 21:15 8.6 MG Lidocaine 1 patch DAILY TOP 12/03/24 10:00 12/14/24 10:04 1 PATCH Hydralazine HCl 10 mg Q6HP PRN IV 12/04/24 09:45 12/04/24 11:06 10 MG Enoxaparin Sodium 40 mg DAILY SC 12/05/24 10:00 12/14/24 10:04 40 MG Lorazepam 0.5 mg Q6HP PRN IV 12/07/24 09:00 12/13/24 20:26 0.5 MG Enteral Nutritional Formula 240 ml TIDWM PO 12/08/24 18:00 12/14/24 18:33 240 ML Levalbuterol HCl 0.625 mg Q6HR NEB 12/08/24 18:29 12/14/24 18:46 0.625 MG Methylprednisolone Sodium Succinate 40 mg Q8HR IV 12/12/24 14:00 12/14/24 14:26 40 MG Furosemide 40 mg DAILY PO 12/15/24 10:00 Examination Examination General Appearance: Alert, Oriented X3, Cooperative, mild distress, on 8l through nasal canula HEENT: EOMI Respiratory: Bilateral coarse crackles Cardiovascular: Regular rate, Normal S1, Normal S2 Abdominal: Normal bowel sounds, soft Extremities: Mild clubbing, No cyanosis, No edema, Normal pulses, No tenderness/swelling Skin: No rashes, No breakdown laboratory and microbiology Laboratory Tests 12/14/24 04:51 Test 12/14/24 04:51 Range/Units Serum Glucose 202 H 74-106 mg/dL Microbiology Date/Time Source Procedure Growth Status 12/08/24 21:59 Blood Blood Culture - Final NO GROWTH AFTER 5 DAYS OF INCUBATION. Complete 12/08/24 21:30 Urine - [place] Urine Culture - Final Complete 11/28/24 16:45 Sputum Gram Stain - Final Complete 11/28/24 16:45 Respiratory Culture - Final Presumptive Sheri albicans Complete 11/27/24 10:15 Nose MRSA Screen - Final Complete Labs and/or images reviewed: Labs reviewed by me, Image(s) reviewed by me Problem List/Assessment/Plan Problem List/Assessment/Plan Assessment/plan Neurology Cardiology #Hypertension -currently normal BP # NSTEMI likely type 2 -monitor trops # acute diastolic heart failure -Lasix 20mg BID IV discontinued -oral lasix 40mg daily Respiratory # acute hypoxic respiratory failure due to ? Pneumonia overlying interstitial lung disease -currently on BiPAP -oral lasix 40mg daily #? 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, other causes not ruled out yet, workup ordered -decreased methylprednisone to 40mg Q8 # right lower lung mass/focal consolidation, questionable malignancy -patient will need eventually a biopsy # pulmonary hypertension, likely group 3 -seen on echo and CT GI Endocrine Hematology/oncology Nephrology # hyponatremia Workup ordered Monitor Psychiatry # anxiety Resume home Meds, judicious use considering patient is on currently on 6l NC Infectious Disease #sepsis due to pneumonia -IV antibiotics -panculture Nutrition Cardiac diet DVT prophylaxis Lovenox Code status discussed with the patient for greater than 21 minutes, full code FISHER EEL CONSULTED TO TRANSFER TO [facility] for transfer Case discussed with Dr. murray Critical care time excluding procedures: 51 min Plan discussed with: Other My Orders My Orders Orders - JACOB LEONE RESIDENT Procedure Category Date Status Time Imaging Transfer ORDERS 12/14/24 Transmitted Request 19:48 Discharge DISCHARGE 12/14/24 Transmitted 19:57 Complete Blood Count LAB 12/15/24 Verified 04:00 Basic Metabolic Panel LAB 12/15/24 Verified 04:00 Magnesium LAB 12/15/24 Verified 04:00 Chest Portable XY 12/15/24 Logged 04:00 Abg W/ Co-Ox RT 12/15/24 Logged 04:00 Melatonin (Melatonin) PHA 12/14/24 Transmitted 22:00 Dietary Evaluation Review Comments: Monitor PO intake to reach 75% of her needs. Expected Outcomes/Goals: Gradual weight loss, improved glucose levels and overall medical conditions JACOB LEONE RESIDENT Dec 14, 2024 20:03
[2024-12-14] MEDS ORDERED: THROAT LOZENGES(CEPASTAT) MT PRN (20:30)
[2024-12-14] MEDS: MELATONIN 5 MG TAB PO SCH (20:36)
[2024-12-14] MEDS: LORazepam 2MG/ML-1ML VIAL IV PRN (23:08)
[2024-12-15] MEDS ORDERED: FUROSEMIDE 40 MG TAB PO SCH (10:00)
== END 2024-12-14 23:11 | disposition short-term general hospital (02) | DRG 871 ==
LOC: EDBD 10:30 → ER 10:30 → OVERFLOW 19:11 → WEST WING 11-23 03:10 → ICU WEST 11-27 10:16 → DOU IN ICU 12-13 21:06
PROVIDERS: ADMIT Internal Medicine; ATTEND Emergency Medicine
PROC: 5A0935A Assistance with Respiratory Ventilation, Less than 24 Consecutive Hours, High Flow/Velocity Cannula (ICD-10-PCS; 2024-11-27)
PROC: 5A0935A Assistance with Respiratory Ventilation, Less than 24 Consecutive Hours, High Flow/Velocity Cannula (ICD-10-PCS; 2024-11-30)
PROC: 5A09357 Assistance with Respiratory Ventilation, Less than 24 Consecutive Hours, Continuous Positive Airway Pressure (ICD-10-PCS; principal; 2024-12-06)
PROC: 5A09357 Assistance with Respiratory Ventilation, Less than 24 Consecutive Hours, Continuous Positive Airway Pressure (ICD-10-PCS; 2024-12-07)
PROC: 5A0935A Assistance with Respiratory Ventilation, Less than 24 Consecutive Hours, High Flow/Velocity Cannula (ICD-10-PCS; 2024-12-08)
PROC: 5A0935A Assistance with Respiratory Ventilation, Less than 24 Consecutive Hours, High Flow/Velocity Cannula (ICD-10-PCS; 2024-12-09)
PROC: 5A0935A Assistance with Respiratory Ventilation, Less than 24 Consecutive Hours, High Flow/Velocity Cannula (ICD-10-PCS; 2024-12-10)
PROC: 5A0935A Assistance with Respiratory Ventilation, Less than 24 Consecutive Hours, High Flow/Velocity Cannula (ICD-10-PCS; 2024-12-11)
PROC: 5A0935A Assistance with Respiratory Ventilation, Less than 24 Consecutive Hours, High Flow/Velocity Cannula (ICD-10-PCS; 2024-12-12)
PROC: 5A0935A Assistance with Respiratory Ventilation, Less than 24 Consecutive Hours, High Flow/Velocity Cannula (ICD-10-PCS; 2024-12-13)
PROC: 5A0935A Assistance with Respiratory Ventilation, Less than 24 Consecutive Hours, High Flow/Velocity Cannula (ICD-10-PCS; 2024-12-14)
DX: A41.50 Gram-negative sepsis, unspecified (principal); I21.A1 Myocardial infarction type 2; J15.69 Pneumonia due to other Gram-negative bacteria; J96.01 Acute respiratory failure with hypoxia; I50.31 Acute diastolic (congestive) heart failure; E87.1 Hypo-osmolality and hyponatremia; J47.0 Bronchiectasis with acute lower respiratory infection; E87.3 Alkalosis; Z20.822 Contact with and (suspected) exposure to COVID-19; I11.0 Hypertensive heart disease with heart failure; J84.10 Pulmonary fibrosis, unspecified; I27.21 Secondary pulmonary arterial hypertension; R59.0 Localized enlarged lymph nodes; F41.9 Anxiety disorder, unspecified; Z88.5 Allergy status to narcotic agent; Z99.81 Dependence on supplemental oxygen; Z87.01 Personal history of pneumonia (recurrent)
CPT/HCPCS: 36415; 36600; 71045; 71275; 80048; 80053; 80202; 81001; 82565; 82805; 82962; 83036; 83735; 83880; 83930; 83935; 84300; 84484; 85025; 85379; 85610; 85652; 85730; 86038; 86431; 87040; 87070; 87077; 87081; 87086; 87205; 87426; 87804; 93005; 93306; 94640; 94660; 96365; 96372; 96375; 97110; 97163; 97530; 99291; 99292; A4565; G0378; J1815; J2003; J2248; J2543; J3480